=== PATIENT | female | born 1965 | race Two or more races ===

== ENCOUNTER → 2020-08-08 09:21 | Outpatient (BNVA) | payer OTHER, SELFPAY | PROVIDERS: Visit Provider Internal Medicine Gastroenterology ==

== ENCOUNTER 2020-10-14 13:49 | Outpatient (REF) | payer OTHER, SELFPAY ==
--- NOTE | ~2020-10-14 | MM_ITS ---
EXAMINATION: MM SCREENING DIGITAL BREAST TOMOSYNTHESIS, BILATERAL CLINICAL INFORMATION: Screening. Asymptomatic. The lifetime risk of breast cancer based on the Tyrer-Cuzick Model is 5%. COMPARISON: Mammography: 08/05/2019, 07/30/2018, 01/07/2016 TECHNIQUE: Digital breast tomosynthesis is performed in both the craniocaudal and mediolateral oblique views along with computer-aided detection (CAD). Synthesized 2D images are generated from the tomosynthesis. FINDINGS: There are scattered areas of fibroglandular density (ACR BI-RADS breast composition Category b). There are no significant masses, abnormal calcifications, or other abnormalities. There is stable circumscribed nodule again seen retroareolar 12:00 left breast. The axilla and skin contours are unremarkable. MM/MM tomosynthesis screening BI IMPRESSION: No significant changes from prior exams. Stable circumscribed nodule 12:00 anterior left breast. ASSESSMENT: BI-RADS 2: Benign RECOMMENDATION: Routine annual mammography screening. This patient's information was entered into a reminder system with a target due date for their next mammogram.
== END 2020-10-14 13:50 | disposition home or self-care (01) ==
LOC: HO.MAMMO 13:49
PROVIDERS: Visit Provider Internal Medicine
DX: Z12.31 Encounter for screening mammogram for malignant neoplasm of breast (principal)
CPT/HCPCS: 77063; 77067

== ENCOUNTER → 2020-12-29 15:58 | Outpatient (BNVA) | payer OTHER, SELFPAY | PROVIDERS: PCP Internal Medicine; Visit Provider Student in an Organized Health Care Education/Training Program ==

== ENCOUNTER 2021-01-30 07:43 | Outpatient (REF) | payer OTHER, SELFPAY ==
[2021-01-30 08:34] LABS: Hemoglobin 10.5 g/dl (12.0-16.0); Mean Corpuscular HGB Conc 31.8 g/dl (31.0-35.0); Mean Corpuscular Hemoglobin 30.1 pg (27.0-33.0); Mean Corpuscular Volume 94.6 fL (80-98); Platelet Count 281 X10*3/uL (160-400); Red Blood Count 3.49 X10*6/uL (4.20-5.50); Red Cell Distribution Width 12.5 % (11.0-16.0); White Blood Count 7.4 X10*3/uL (4.8-10.8)
[2021-01-30 08:45] LABS: Estimated Average Glucose 134 mg/dL; Hemoglobin A1c % 6.3 %
[2021-01-30 09:00] LABS: Creatinine Urine 85.29 mg/dL; Microalbumin Urine < 5.0 mg/L
[2021-01-30 09:08] LABS: Alanine Aminotransferase 12 U/L (0-31); Albumin Level 4.1 g/dL (3.5-5.0); Alkaline Phosphatase 84 U/L (39-117); Anion Gap 11 (12-20); Aspartate Amino Transferase 16 U/L (5-31); Bilirubin Total 0.5 mg/dL (0.0-1.0); Blood Urea Nitrogen 12 mg/dL (9-16); Calcium 9.6 mg/dL (8.4-10.2); Carbon Dioxide 28 mmol/L (22-29); Chloride 103 mmol/L (96-108); Cholesterol 139 mg/dL; Estimated Glomerular Filt Rate > 60; Glucose Fasting 106 mg/dL (60-99); HDL Cholesterol 59 mg/dL; LDL Cholesterol Calculated 66 mg/dl; Potassium 4.1 mmol/L (3.3-5.1); Sodium 138 mmol/L (135-145); Total Protein 7.1 g/dL (6.5-8.0); Triglycerides 74 mg/dL
[2021-01-30 09:21] LABS: TSH reflex Free T4 0.77 uIU/mL (0.32-4.0)
== END 2021-01-30 07:44 | disposition home or self-care (01) ==
LOC: HO.LAB 07:43
PROVIDERS: PCP Internal Medicine; Visit Provider Physician Assistant
DX: I10 Essential (primary) hypertension (principal); E11.9 Type 2 diabetes mellitus without complications
CPT/HCPCS: 36415; 80053; 80061; 82043; 83036; 84443; 85027

== ENCOUNTER → 2021-02-21 14:19 | Outpatient (BNVA) | payer OTHER, SELFPAY | PROVIDERS: PCP Internal Medicine; Referring Provider Internal Medicine; Visit Provider Nurse Practitioner Family ==

== ENCOUNTER → 2021-03-27 14:08 | Outpatient (BNVA) | payer OTHER, SELFPAY | PROVIDERS: PCP Internal Medicine; Referring Provider Internal Medicine; Visit Provider Nurse Practitioner Family ==

== ENCOUNTER → 2021-06-26 15:46 | Outpatient (BNVA) | payer OTHER, SELFPAY | PROVIDERS: PCP Internal Medicine; Referring Provider Internal Medicine; Visit Provider Nurse Practitioner Family ==

== ENCOUNTER → 2021-06-29 08:08 | Outpatient (BNVA) | payer OTHER, SELFPAY | PROVIDERS: PCP Internal Medicine; Visit Provider Nurse Practitioner Family ==

== ENCOUNTER 2021-08-24 17:04 | Outpatient (REF) | payer OTHER, SELFPAY ==
--- NOTE | ~2021-08-24 | XR_ITS ---
EXAMINATION: XR ABDOMEN KUB CLINICAL INDICATION: Abdominal pain COMPARISON: Previous upper GI November 2016 TECHNIQUE: AP view of the abdomen. FINDINGS: There is a gastric lap band. This appears unchanged from November 2016 upper GI. Phi angle measures approximately 74 degrees which is increased. No dilated loops of bowel or free air is seen. No calcifications are seen. There are mild degenerative changes at both hip joints. XR/XR KUB IMPRESSION: Gastric lap band. Phi angle appears increased measuring 74 degrees. This is similar to upper GI November 2016.
[2021-08-24 18:05] LABS: Anion Gap 12 (12-20); Blood Urea Nitrogen 10 mg/dL (9-16); Calcium 10.4 mg/dL (8.4-10.2); Carbon Dioxide 31 mmol/L (22-29); Chloride 101 mmol/L (96-108); Estimated Glomerular Filt Rate > 60; Glucose Random 97 mg/dL (60-115); Potassium 4.6 mmol/L (3.3-5.1); Sodium 139 mmol/L (135-145)
== END 2021-08-24 17:05 | disposition home or self-care (01) ==
LOC: HO.XRAY 17:04
PROVIDERS: PCP Internal Medicine; Visit Provider Nurse Practitioner Family
DX: R10.9 Unspecified abdominal pain (principal)
CPT/HCPCS: 36415; 74018; 80048; 87086

== ENCOUNTER 2021-11-14 14:04 | Outpatient (REF) | payer OTHER, SELFPAY ==
--- NOTE | ~2021-11-14 | XR_ITS ---
EXAMINATION: XR LUMBOSACRAL SPINE CLINICAL INFORMATION: Left-sided sciatica. COMPARISON: None TECHNIQUE: Three views of the lumbosacral spine. FINDINGS: There is mild straightening of the lumbar lordosis. The vertebral heights, alignment and disc heights are normal. There is no visible acute fracture, dislocation or subluxation. No aggressive lytic or sclerotic process seen. The SI joints are symmetric and normal. There is a left upper quadrant gastric band noted. XR/XR lumbar spine 2-3V IMPRESSION: Mild straightening of the lumbar lordosis. No visible acute fracture, dislocation or subluxation.
== END 2021-11-14 14:05 | disposition home or self-care (01) ==
LOC: HO.XRAY 14:04
PROVIDERS: PCP Internal Medicine; Visit Provider Internal Medicine
DX: M54.32 Sciatica, left side (principal); M54.31 Sciatica, right side
CPT/HCPCS: 72100

== ENCOUNTER 2021-11-18 09:29 | Outpatient (REF) | payer OTHER, SELFPAY ==
[2021-11-18 09:42] LABS: MANUAL DIFF FLAG NO
[2021-11-18 10:05] LABS: Basophils Percent Auto 0.6 % (0-2); Eosinophils Absolute Auto 0.1 X10*3/uL (0.0-0.4); Eosinophils Percent Auto 1.9 % (0-4); Hematocrit 33.6 % (37.0-47.0); Hemoglobin 10.9 g/dl (12.0-16.0); Imm Gran Abs Auto 0.02 X10*3/uL (0.00-0.03); Imm Gran Pct Auto 0.3 % (0.0-0.4); Lymphocytes Absolute Auto 2.2 X10*3/uL (1.2-4.9); Lymphocytes Percent Auto 31.8 % (20-40); Mean Corpuscular HGB Conc 32.4 g/dl (31.0-35.0); Mean Corpuscular Hemoglobin 29.9 pg (27.0-33.0); Mean Corpuscular Volume 92.3 fL (80.0-98.0); Mean Platelet Volume 9.9 fL (9.4-12.3); Monocytes Absolute Auto 0.6 X10*3/uL (0.1-1.2); Monocytes Percent Auto 8.1 % (2-11); Neutrophils Percent Auto 57.3 % (45-73); Platelet Count 310 X10*3/uL (160-400); Red Blood Count 3.64 X10*6/uL (4.20-5.50); Red Cell Distribution Width 12.7 % (11.0-16.0); White Blood Count 6.9 X10*3/uL (4.8-10.8)
[2021-11-18 10:23] LABS: Creatinine Urine 181.27 mg/dL; Microalbum/Creatinine Ratio Ur 26.4 ug/mg cr
[2021-11-18 10:25] LABS: Alanine Aminotransferase 19 U/L (0-31); Albumin Level 4.3 g/dL (3.5-5.0); Alkaline Phosphatase 94 U/L (39-117); Anion Gap 13 (12-20); Aspartate Amino Transferase 20 U/L (5-31); Bilirubin Total 0.4 mg/dL (0.0-1.0); Blood Urea Nitrogen 21 mg/dL (9-16); Calcium 10.1 mg/dL (8.4-10.2); Carbon Dioxide 25 mmol/L (22-29); Chloride 106 mmol/L (96-108); Cholesterol 160 mg/dL; Estimated Glomerular Filt Rate 51; Glucose Fasting 144 mg/dL (60-99); HDL Cholesterol 59 mg/dL; Iron 54 mcg/dL (30-160); LDL Cholesterol Calculated 84 mg/dl; Percent Iron Saturation 14 % (15-50); Potassium 4.9 mmol/L (3.3-5.1); Sodium 139 mmol/L (135-145); Total Iron Binding Capacity 378 mcg/dL (228-428); Total Protein 7.7 g/dL (6.5-8.0); Triglycerides 86 mg/dL; Unsaturated Iron Binding 324 ug/dL
== END 2021-11-18 09:30 | disposition home or self-care (01) ==
LOC: HO.LAB 09:29
PROVIDERS: PCP Internal Medicine; Visit Provider Internal Medicine
DX: Z00.00 Encounter for general adult medical examination without abnormal findings (principal); E11.9 Type 2 diabetes mellitus without complications; E55.9 Vitamin D deficiency, unspecified; D64.9 Anemia, unspecified; E78.5 Hyperlipidemia, unspecified
CPT/HCPCS: 36415; 80053; 80061; 82043; 82306; 83540; 85025

== ENCOUNTER 2022-02-06 06:01 | Outpatient (REF) | payer OTHER, SELFPAY ==
--- NOTE | ~2022-02-06 | FL_ITS ---
EXAMINATION: XR FLUOROSCOPY WITH IMAGES CLINICAL INFORMATION: Sacrococcygeal disorders. COMPARISON: None. TECHNIQUE: Fluoroscopy performed by Dr. Delbert Head. Fluoroscopy time: 0.1 minute. Cumulative Dose: 8.22 mGy. DAP: 2.24 Gy-cm2. Images: 1. FINDINGS: Radiopaque needle overlies the right sacroiliac joint with contrast extending along the joint. FL/FL guidance in treatment room IMPRESSION: Fluoroscopic guidance for right sacroiliac joint injection. Please refer to procedural report for further information.
== END 2022-02-06 06:02 | disposition home or self-care (01) ==
LOC: HO.RADIR 06:01
PROVIDERS: Visit Provider Anesthesiology
DX: M53.3 Sacrococcygeal disorders, not elsewhere classified (principal)
CPT/HCPCS: 27096; J2795; J3300; Q9967

== ENCOUNTER 2022-02-21 18:56 | Outpatient (REF) | payer OTHER, SELFPAY ==
--- NOTE | ~2022-02-21 | MR_ITS ---
EXAMINATION: MR LUMBAR SPINE WITHOUT CONTRAST CLINICAL INFORMATION: Right leg pain and low back pain. COMPARISON: X-ray dated 11/14/2021. TECHNIQUE: MRI of the lumbar spine was obtained using routine sequences without contrast. FINDINGS: VERTEBRAL BODIES AND PARASPINAL STRUCTURES: The marrow signal is within normal limits. There are no compression fractures or subluxations. Mildly reduced intradiscal signal is evident at the L5-S1 level. The paraspinal soft tissues appear normal. Small right renal cysts noted for which no imaging follow-up is indicated. The visualized bony pelvis appears normal. CONUS MEDULLARIS AND CAUDA EQUINA: Normal, terminating at the level of L1. No lower cord signal abnormality is seen. The cauda equina nerve roots are normal. SPINAL LEVELS: L1-L2, L2-L3, and L3-L4: Well-hydrated normal appearance of the discs without central canal stenosis or foraminal narrowing. [id number] left-sided facet arthropathy at the L3-L4 level. L4-L5: Mild disc bulge and facet arthropathy without central canal stenosis. Bulging disc results in mild left foraminal narrowing. Broad-based right posterolateral disc protrusion with moderate right foraminal encroachment mildly impresses upon the exiting right L4 nerve root. L5-S1: Disc degeneration and right subarticular zone disc protrusion impinges upon the right S1 nerve root. Mild facet arthropathy without central canal stenosis. Mild foraminal narrowing. MR/MR lumbar spine wo con IMPRESSION: Broad-based right posterolateral disc protrusion at the L4-L5 level with moderate right foraminal encroachment and mild mass effect upon the right L4 nerve root. Right subarticular zone disc protrusion at the L5-S1 level impinging upon the right S1 nerve root.
== END 2022-02-21 18:57 | disposition home or self-care (01) ==
LOC: HO.MRI 18:56
PROVIDERS: Visit Provider Anesthesiology
DX: M47.27 Other spondylosis with radiculopathy, lumbosacral region (principal)
CPT/HCPCS: 72148

== ENCOUNTER 2022-04-10 06:02 | Outpatient (REF) | payer OTHER, SELFPAY ==
--- NOTE | ~2022-04-10 | FL_ITS ---
EXAMINATION: Intraoperative fluoroscopy CLINICAL INFORMATION: Radiculopathy, lumbar region COMPARISON: Lumbar spine MRI February 21, 2022 TECHNIQUE: Intraoperative fluoroscopy was provided for use by Dr. Head. A total of 3 images were saved to PACS. A radiologist was not present during imaging. Today's dictation is only for administrative purposes to document intraoperative fluoroscopic usage. TOTAL FLUOROSCOPIC TIME: 0.5 minutes FL/FL guidance in treatment room FINDINGS~\^^ Intraoperative fluoroscopy provided for use by Dr. Head. Please see operative note for detailed findings.
== END 2022-04-10 06:03 | disposition home or self-care (01) ==
LOC: CF 06:02
PROVIDERS: Visit Provider Anesthesiology
DX: M54.16 Radiculopathy, lumbar region (principal); M53.3 Sacrococcygeal disorders, not elsewhere classified; M16.11 Unilateral primary osteoarthritis, right hip; M51.36 Other intervertebral disc degeneration, lumbar region
CPT/HCPCS: 64483; 64484; J3300

== ENCOUNTER 2022-04-20 10:49 | Outpatient (REF) | payer OTHER, SELFPAY ==
[2022-04-20 12:16] LABS: Creatinine Urine 135.56 mg/dL; Microalbum/Creatinine Ratio Ur 7.3 ug/mg cr
[2022-04-20 12:31] LABS: Alanine Aminotransferase 21 U/L (0-31); Albumin Level 4.2 g/dL (3.5-5.0); Alkaline Phosphatase 77 U/L (39-117); Anion Gap 14 (12-20); Aspartate Amino Transferase 27 U/L (5-31); Bilirubin Total 0.3 mg/dL (0.0-1.0); Blood Urea Nitrogen 21 mg/dL (9-16); Calcium 9.6 mg/dL (8.4-10.2); Carbon Dioxide 25 mmol/L (22-29); Chloride 103 mmol/L (96-108); Cholesterol 147 mg/dL; Estimated Glomerular Filt Rate > 60; Glucose Fasting 120 mg/dL (60-99); HDL Cholesterol 58 mg/dL; LDL Cholesterol Calculated 79 mg/dl; Potassium 4.4 mmol/L (3.3-5.1); Sodium 138 mmol/L (135-145); Total Protein 7.3 g/dL (6.5-8.0); Triglycerides 53 mg/dL
[2022-04-20 12:37] LABS: Vitamin D 25-OH Total 58.2 ng/mL (>30)
== END 2022-04-20 10:50 | disposition home or self-care (01) ==
LOC: HO.LAB 10:49
PROVIDERS: PCP Internal Medicine; Visit Provider Internal Medicine
DX: E55.9 Vitamin D deficiency, unspecified (principal); E11.9 Type 2 diabetes mellitus without complications; E78.5 Hyperlipidemia, unspecified
CPT/HCPCS: 36415; 80053; 80061; 82043; 82306

== ENCOUNTER 2022-05-10 16:00 | Outpatient (RCR) | payer OTHER, SELFPAY ==
--- NOTE | 2022-04-03 18:05 | MHC.PT.EP ---
[facility] [place] Office [place] Office [place] Office [address] Caden Andrews [address] [phone] F: [phone] F: [phone] F: [phone] F: [phone] Physical Therapy Plan of Care Date of Evaluation: Date of Surgery: Diagnosis: Low back pain, R sided sciatica Assessment: Patient is pleasant 56 y.o female who presents to PT with dx of LBP with R sided scaitica. She had recent imaging, MRI to lumbar spine which reveals Broad-based right posterolateral disc protrusion at the L4-L5 level with moderate right foraminal encroachment and mild mass effect upon the right L4 nerve root. Right subarticular zone disc protrusion at the L5-S1 level impinging upon the right S1 nerve root. She presents with pain, radiating R LE symptoms, limited AROM of lumbar spine, weakness in hips and core which is impairing her functional mobility at work and for lower body dressing. She would benefit from skilled PT to see if it can alleviate and centralize R LE symptoms, including the use of mechanical traction as an intervention. She is receiving lumbar injections next week for symptoms. If symptoms persist upon completion of PT she would benefit from marketing proposal specialist consult. Frequency and Duration: The patient will be seen 2x/week for 4 weeks Short Term Goals: 2 weeeks Patient is able to centralize R LE pain to low back with postural changes. Patient is independent with HEP to self manage symptoms and reduce pain level 2/10. Intermediate Goals: 4 weeks Patient presents with increased R hip flexion 5/5 to be able to bend/squat at work with proper form. Patient presents with increased low back sidebending 20 degrees to restore mobility to lumbar spine to put on shoes/socks. Treatment Plan: Modalities to reduce pain, spasms and effusion. Manual therapy to restore motion and function. Therapeutic exercise to improve strength and flexibility. Neuromuscular re-education for posture and balance. Therapeutic activities to return to functional activities of daily living. Electronically signed by: Courtney Alvarado, PT, DPT Please sign and return to therapist. Thank you for your referral.
--- NOTE | 2022-06-19 11:50 | MHC.PT.DC ---
[facility] [place] Office [place] Office [address] Caden Andrews [address] [phone] F: [phone] F: [phone] F: [phone] F: [phone] Physical Therapy Discharge Report Diagnosis: Low back pain, R sided sciatica Date of Surgery: NA Date of Evaluation: 04/03/22 Date of Discharge: 06/19/22 Treatments to Date: 8 Cancellations to Date: 1 No Shows to Date: 1 Discharge Status: Improved Function Independent with HEP Discharge Summary: Patient was last treated 05/10/22 with the last assessment being, Pt levels decreased after Tx last visit and radicular symptoms reduces and no change in px w/stagger stance core stab today. She did very well with traction, but ceased attending on her own accord, no formal discharge was performed. Therefore she is discharged for non compliance. Electronically signed by: Courtney Alvarado, PT, DPT Please sign and return to therapist. Thank you for your referral.
== END 2022-06-19 11:51 | disposition home or self-care (01) ==
LOC: HO.PT 16:00
PROVIDERS: PCP Internal Medicine; Visit Provider Internal Medicine
DX: M54.31 Sciatica, right side (principal)
CPT/HCPCS: 97012; 97110; 97161; 97530

== ENCOUNTER 2022-08-07 13:33 | Outpatient (REF) | payer OTHER, SELFPAY | END 2022-08-07 13:34 | disposition home or self-care (01) | LOC: HO.LAB 13:33 | PROVIDERS: PCP Internal Medicine; Visit Provider Advanced Practice Midwife | DX: Z13.89 Encounter for screening for other disorder (principal) ==

== ENCOUNTER 2022-08-07 14:15 | Outpatient (REF) | payer OTHER, SELFPAY ==
[2022-08-08 11:32] LABS: BV Int Neg Control Negative (Negative); BV Int Pos Control Positive (Positive)
[2022-08-10 02:24] LABS: HPV mRNA E6/E7 rflx Not Detected (Not Detected)
== END 2022-08-07 14:16 | disposition home or self-care (01) ==
LOC: HO.LNP 14:15
PROVIDERS: Visit Provider Advanced Practice Midwife
DX: Z01.419 Encounter for gynecological examination (general) (routine) without abnormal findings (principal); Z11.51 Encounter for screening for human papillomavirus (HPV); N89.8 Other specified noninflammatory disorders of vagina
CPT/HCPCS: 87480; 87510; 87624; 87660; 88142

== ENCOUNTER 2022-08-08 14:37 | Outpatient (REF) | payer OTHER, SELFPAY ==
[2022-08-08 17:27] LABS: TSH reflex Free T4 0.64 uIU/mL (0.32-4.0)
[2022-08-08 17:41] LABS: Folate 11.5 ng/mL (> or = 4.0); Vitamin B12 497 pg/mL (200-900)
== END 2022-08-08 14:38 | disposition home or self-care (01) ==
LOC: HO.LAB 14:37
PROVIDERS: PCP Internal Medicine; Referring Provider Internal Medicine; Visit Provider Nurse Practitioner Family
DX: R13.10 Dysphagia, unspecified (principal); K21.9 Gastro-esophageal reflux disease without esophagitis; K59.04 Chronic idiopathic constipation; R19.7 Diarrhea, unspecified; Z91.09 Other allergy status, other than to drugs and biological substances
CPT/HCPCS: 36415; 82607; 82746; 84443; 86003

== ENCOUNTER 2022-08-20 14:45 | Outpatient (REF) | payer OTHER, SELFPAY ==
--- NOTE | ~2022-08-20 | MM_ITS ---
EXAMINATION: MM SCREENING DIGITAL BREAST TOMOSYNTHESIS, BILATERAL CLINICAL INFORMATION: Screening. Asymptomatic. The lifetime risk of breast cancer based on the Tyrer-Cuzick Model is 5%. COMPARISON: Mammography: October 14, 2020 and studies dating back to December 14, 2013 TECHNIQUE: Digital breast tomosynthesis is performed in both the craniocaudal and mediolateral oblique views along with computer-aided detection (CAD). Synthesized 2D images are generated from the tomosynthesis. FINDINGS: There are scattered areas of fibroglandular density (ACR BI-RADS breast composition Category b). There are no significant masses, abnormal calcifications, or other abnormalities. Stable circumscribed density anterior left breast again seen. MM/MM tomosynthesis screening BI IMPRESSION: No significant changes from prior exam. ASSESSMENT: BI-RADS 2: Benign RECOMMENDATION: Routine annual mammography screening. This patient's information was entered into a reminder system with a target due date for their next mammogram.
== END 2022-08-20 14:46 | disposition home or self-care (01) ==
LOC: HO.MAMMO 14:45
PROVIDERS: PCP Internal Medicine; Visit Provider Advanced Practice Midwife
DX: Z12.31 Encounter for screening mammogram for malignant neoplasm of breast (principal)
CPT/HCPCS: 77063; 77067

== ENCOUNTER 2022-10-04 09:23 | Outpatient (REF) | payer OTHER, SELFPAY ==
--- NOTE | ~2022-10-04 | FL_ITS ---
PROCEDURE: UPPER GI WITH BARIUM SWALLOW CLINICAL INDICATION: Gastroesophageal reflux disease. COMPARISON: None available. TECHNIQUE: Following oral administration of thick barium and effervescent granules in upright view and lying position upper GI air-contrast study was performed. FINDINGS: Following oral administration of thick barium and effervescent granules in upright view there is normal propagation of bolus from the oral cavity through the pharynx, esophagus into stomach without any laryngeal penetration or aspiration. No stricture or extrinsic compression seen. The mucosal pattern of esophagus is normal. On placing patient supine and lying, the course, caliber and peristalsis of the stomach, duodenum bulb and the sweep is normal. The mucosal pattern of stomach and the duodenum is normal. There is mild gastroesophageal reflux without hiatal hernia. Subsequently barium-coated turkey was administered in upright view with normal propagation of bolus through the esophagus. No obstruction seen. FL/FL upper GI w Ba Swallow IMPRESSION: Unremarkable barium swallow and upper GI air-contrast study.
== END 2022-10-04 09:24 | disposition home or self-care (01) ==
LOC: HO.XRAY 09:23
PROVIDERS: PCP Internal Medicine; Visit Provider Nurse Practitioner Family
DX: K21.9 Gastro-esophageal reflux disease without esophagitis (principal)
CPT/HCPCS: 74240

== ENCOUNTER → 2022-10-11 16:02 | Outpatient (BNVA) | payer OTHER, SELFPAY | PROVIDERS: PCP Internal Medicine; Visit Provider Nurse Practitioner Family | DX: Z13.89 Encounter for screening for other disorder (principal) ==

== ENCOUNTER → 2022-10-16 13:19 | Outpatient (BNVA) | payer OTHER, SELFPAY | PROVIDERS: PCP Internal Medicine; Visit Provider Nurse Practitioner Family | DX: Z13.89 Encounter for screening for other disorder (principal) ==

== ENCOUNTER 2022-12-03 09:00 | Outpatient (REF) | payer OTHER, SELFPAY ==
[2022-12-03 10:17] LABS: Creatinine Urine 144.21 mg/dL; Microalbum/Creatinine Ratio Ur 6.9 ug/mg cr
[2022-12-03 10:18] LABS: Amphetamine Screen Urine Not Detected (Not Detect); Barbiturates, Urine Not Detected (Not Detect); Benzodiazepines Screen Urine Not Detected (Not Detect); Cannabinoid Screen Urine Not Detected (Not Detect); Cocaine Screen Urine Not Detected (Not Detect); Fentanyl, urine Not Detected (Not Detect); Opiate Screen Urine Not Detected (Not Detect); Phencyclidine Screen Urine Not Detected (Not Detect)
[2022-12-03 10:33] LABS: Alanine Aminotransferase 19 U/L (0-31); Alkaline Phosphatase 85 U/L (39-117); Anion Gap 11 (12-20); Aspartate Amino Transferase 17 U/L (5-31); Bilirubin Total 0.4 mg/dL (0.0-1.0); Blood Urea Nitrogen 13 mg/dL (9-16); Calcium 9.5 mg/dL (8.4-10.2); Carbon Dioxide 27 mmol/L (22-29); Chloride 107 mmol/L (96-108); Cholesterol 151 mg/dL; Estimated Glomerular Filt Rate > 60; Glucose Fasting 121 mg/dL (60-99); HDL Cholesterol 66 mg/dL; LDL Cholesterol Calculated 66 mg/dl; Potassium 4.3 mmol/L (3.3-5.1); Sodium 141 mmol/L (135-145); Triglycerides 98 mg/dL
[2022-12-03 10:53] LABS: Vitamin D 25-OH Total 53.6 ng/mL (>30)
== END 2022-12-03 09:01 | disposition home or self-care (01) ==
LOC: HO.LAB 09:00
PROVIDERS: Absent Provider Nurse Practitioner Family; PCP Internal Medicine; Visit Provider Internal Medicine
DX: E55.9 Vitamin D deficiency, unspecified (principal); E11.9 Type 2 diabetes mellitus without complications; E78.5 Hyperlipidemia, unspecified; Z79.899 Other long term (current) drug therapy
CPT/HCPCS: 36415; 80053; 80061; 80307; 80373; 82043; 82306

== ENCOUNTER 2023-03-21 15:32 | Outpatient (AMB) | payer OTHER, SELFPAY ==
[2023-03-21 15:41] VITALS: BP 128/80; BMI 36.9
--- NOTE | 2023-03-21 15:41 | MHC.PC.OV ---
Vital Signs 03/21/23 15:41 Height 5 ft 2 in Weight 202 lb BMI 36.9 BP 128/80 Blood Pressure Location Lt brachial Position Sitting Intake Visit Reasons: dm Intake Note: Patient here for a follow up DM Development Officer Required: No Accompanied by: Self / Same As Patient Allergies naproxen [NAPROXEN] Allergy (Intermediate, Verified 03/21/23 16:13) CHEST TIGHTNESS, vomiting Butrans Allergy (Unknown, Uncoded 03/21/23 16:13) rash Medication List - Last Reconciled 03/21/23 by Chanell Ford MD acetaminophen ER (Mapap Arthritis Pain) 650 mg PO Q8H PRN albuterol sulfate 90 mcg/actuation 1 puff PO QID atorvastatin 10 mg PO BEDTIME 90 days baclofen 20 mg PO BID PRN budesonide-formoterol 160-4.5 mcg/actuation (Symbicort) 2 puffs PO BID citalopram 40 mg PO DAILY 90 days famotidine (Pepcid) 20 mg PO BEDTIME PRN gabapentin 300 mg PO BEDTIME lactobacillus combination no.4 (Probiotic) 3,000 mmu cells PO DAILY lidocaine 4% (Aspercreme (lidocaine)) 1 patch topical DAILY PRN linaclotide (Linzess) 290 mcg PO QAM lisinopril 10 mg PO DAILY 90 days menthol 2.5% (Icy Hot Pain Relieving) 1 appl topical BID-QID PRN metformin 1,000 mg PO BID 90 days methylcellulose (laxative) (Citrucel) 500 mg PO DAILY mirtazapine 15 mg PO BEDTIME 90 days montelukast 10 mg PO DAILY pantoprazole 40 mg PO DAILY tramadol 50 mg PO Q8H PRN tretinoin 0.1% 1 appl topical BEDTIME 30 days Tobacco use date assessed: 08/08/22 Dental Screening Dental Screen Date: 03/21/23 Did you have a dental visit in the last 12 months?: Yes Did you have a dental problem in the last 6 months where you did not have access to dental care?: No Was dental information given to patient?: Patient has dentist HPI HPI Comments History of Present Illness Details This is a 57-year-old female with diabetes mellitus type 2, hypertension, hyperlipidemia and GERD that comes today for follow-up on her conditions. A1c within goal. Blood pressure stable. Lipid panel will be order and her LDL goal should be less than 70. GERD stable with Pepcid and PPIs as needed. Low back pain was relieved by local injections. No chest pain or shortness of breath. [facility] Medical History Right sided sciatica Left sciatic nerve pain History of cocaine use Physical exam Tubular adenoma Asthma Diabetes 1.5, managed as type 2 Chronic idiopathic constipation GERD (gastroesophageal reflux disease) Surgical History Hx of section History of repair of hiatal hernia Hx of laparoscopic gastric banding Hx of esophagogastroduodenoscopy Hx of colonoscopy Family History Father Prostate CA Cancer of back Mother Diabetes 1.5, managed as type 2 CVD (cardiovascular disease) Social History Household Members: Other Household Members Other:: grandson Housing: House Alcohol intake: former Patient Tobacco Use Status: Current everyday Tobacco user Tobacco use type: Cigarette Cigarettes Per Day: 4 Years Smoked: 16 e-Cigarette/Vaping Use: Never Used Second Hand Smoke Exposure: No service: No Current occupational status: employed Current occupational exposures/hazards: No Sexual orientation: Straight/Heterosexual Gender identity: Female Cognitive needs: No Hearing needs: No Vision needs: Yes (reading glasses) Questionnaire Thrive Questionnaire Date Thrive assessed: 08/08/22 ERIKA-7 AMB Questionnaire ERIKA-7 Date ERIKA - 7 assessed: 08/08/22 Source: Developed by Drs. Calvin Maria, Meghan Eddy, Josh Blandon and colleagues, with an educational andi from [employer]. Review of Systems Const All systems reviewed & are unremarkable except as noted in HPI and below Eyes Reports no additional complaints, Denies change in vision and Denies other visual disturbances Card Denies chest pain at rest, Denies chest pain with activity, Denies edema, Denies irregular heart rhythm, Denies claudication, Denies dyspnea, Denies dyspnea on exertion, Denies orthopnea, Denies paroxysmal nocturnal dyspnea and Denies slow heart rate Resp Denies cough, Denies dyspnea and Denies dyspnea on exertion GI Denies abdominal pain, Denies change in bowel habits, Denies excessive flatus, Denies nausea and Denies vomiting Denies urinary incontinence, Denies urinary hesitancy and Denies urinary urgency Musc Denies abnormal gait, Denies atrophy, Denies deformity and Denies limited range of motion Skin/Breast Denies bleeding lesions, Denies changing lesions and Denies rash Neuro Denies abnormal gait and Denies lack of coordination Physical exam (Primary Care) Vital Signs: Last Vital Signs BP 128/80 03/21/23 15:41 BMI result Body Mass Index 36.9 Tobacco/Smoking Status: Tobacco use Status Tobacco use date assessed 08/08/22 03/21/23 15:44 Patient Tobacco Use Status Current everyday Tobacco 03/21/23 15:44 Tobacco use type Cigarette 03/21/23 15:44 e-Cigarette/Vaping Use Never Used 03/21/23 15:44 Thrive Assessment: Date of Thrive Assessment Date Thrive assessed 08/08/22 03/21/23 15:44 Eyes General: appearance normal, both eyes and all related structures Eyelids: Yes eyelids normal Conjunctivae: conjunctivae normal Neck Neck: Yes normal visual inspection and Yes supple Resp Effort & Inspection: normal respiratory effort Auscultation: clear to auscultation bilaterally Cardio Jugular venous distension: no JVD Rate: regular rate Rhythm: regular rhythm Heart sounds: S1 normal heart sound present and S2 normal heart sound present Extrem General: Yes full ROM Results AMB Hemoglobin A1c AMB Hemoglobin A1c 6.9 % Last Edit by JB Correa on 03/21/23 15:58 Results Reviewed Results Reviewed: Laboratory Last Values Hgb A1c (Clinic) 6.9 % (4.0-6.0) H 03/21/23 15:44 Assessment and Plan Assessment & Plan (1) DMII (diabetes mellitus, type 2): Code(s): E11.9 - Type 2 diabetes mellitus without complications Qualifiers: Diabetes mellitus penitentiary insulin use: 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 A1c goal is equal or less than 7 %. (2) HTN (hypertension): Code(s): I10 - Essential (primary) hypertension Qualifiers: Hypertension type: essential hypertension Qualified Code(s): I10 - Essential (primary) hypertension Plan: Continue lisinopril. BP goal is equal or less than 130/80. (3) Hyperlipidemia LDL goal <70: Code(s): E78.5 - Hyperlipidemia, unspecified Plan: Continue statin. LDL goal is less than 70. (4) GERD (gastroesophageal reflux disease): Code(s): K21.9 - Gastro-esophageal reflux disease without esophagitis Qualifiers: Esophagitis presence: esophagitis presence not specified Qualified Code(s): K21.9 - Gastro-esophageal reflux disease without esophagitis Plan: Continue Pepcid and PPIs. 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
== END 2023-03-21 16:20 | disposition home or self-care (01) ==
PROVIDERS: PCP Internal Medicine; Visit Provider Internal Medicine
DX: E11.9 Type 2 diabetes mellitus without complications (principal); I10 Essential (primary) hypertension; E78.5 Hyperlipidemia, unspecified; K21.9 Gastro-esophageal reflux disease without esophagitis
CPT/HCPCS: 83036; 99214

== ENCOUNTER 2023-03-27 16:06 | Outpatient (AMB) | payer OTHER, SELFPAY ==
[2023-03-27 16:07] VITALS: BP 122/66; PULSE 96; TEMP 36.3; O2SAT 98; BMI 37.4
--- NOTE | 2023-03-27 16:07 | A.OFFVIS_ITS ---
Intake Vital Signs 03/27/23 16:07 Height 5 ft 2 in Weight 204 lb 9.423 oz BMI 37.4 BP 122/66 Blood Pressure Location Rt brachial Position Sitting Pulse 96 Pulse Source Pulse Oximeter Temp 97.3 F Temp Source Skin Pulse Oximetry (%) 98 Intake Visit Reasons: low back pain Intake Note: Pt seen today for follow up. States her back pain is much better after injection with pain mgmt. 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 Required: No Accompanied by: Self / Same As Patient Allergies naproxen [NAPROXEN] Allergy (Intermediate, Verified 03/27/23 16:09) CHEST TIGHTNESS, vomiting Butrans Allergy (Unknown, Uncoded 03/27/23 16:09) rash Medication List - Last Reconciled 03/27/23 by Gabriele Hernández MD acetaminophen ER (Mapap Arthritis Pain) 650 mg PO Q8H PRN atorvastatin 10 mg PO BEDTIME 90 days baclofen 20 mg PO BID PRN budesonide-formoterol 160-4.5 mcg/actuation (Symbicort) 2 puffs PO BID citalopram 40 mg PO DAILY 90 days famotidine (Pepcid) 20 mg PO BEDTIME PRN gabapentin 300 mg PO BEDTIME lactobacillus combination no.4 (Probiotic) 3,000 mmu cells PO DAILY lidocaine 4% (Aspercreme (lidocaine)) 1 patch topical DAILY PRN linaclotide (Linzess) 290 mcg PO QAM lisinopril 10 mg PO DAILY 90 days menthol 2.5% (Icy Hot Pain Relieving) 1 appl topical BID-QID PRN metformin 1,000 mg PO BID 90 days methylcellulose (laxative) (Citrucel) 500 mg PO DAILY mirtazapine 15 mg PO BEDTIME 90 days montelukast 10 mg PO DAILY pantoprazole 40 mg PO DAILY tramadol 50 mg PO Q8H PRN tretinoin 0.1% 1 appl topical BEDTIME 30 days Ventolin HFA 90 mcg/actuation (albuterol sulfate) 2 puffs inhalation Q6H PRN 30 days NS HPI HPI Comments History of Present Illness Details This is a 57-year-old female with past medical history lumbar radiculopathy, sciatica who presents for follow-up. Last injection she had by Pain Management was in April of last year. She states that it has given her significant relief. States that the some of the pain is coming back but it not severe enough to interfere with her daily activities. She also has pain on the outside of her right hip. The pain is worse when she tries to sleep on her right side. She prefers the left side. She continues to take tramadol 3 times a day. [facility] Medical History Right sided sciatica Left sciatic nerve pain History of cocaine use Physical exam Tubular adenoma Asthma Diabetes 1.5, managed as type 2 Chronic idiopathic constipation GERD (gastroesophageal reflux disease) Surgical History Hx of section History of repair of hiatal hernia Hx of laparoscopic gastric banding Hx of esophagogastroduodenoscopy Hx of colonoscopy Family History Father Prostate CA Cancer of back Mother Diabetes 1.5, managed as type 2 CVD (cardiovascular disease) Social History Household Members: Other Household Members Other:: grandson Housing: House Alcohol intake: former Patient Tobacco Use Status: Current everyday Tobacco user Tobacco use type: Cigarette Cigarettes Per Day: 4 Years Smoked: 16 e-Cigarette/Vaping Use: Never Used Second Hand Smoke Exposure: No service: No Current occupational status: employed Current occupational exposures/hazards: No Sexual orientation: Straight/Heterosexual Gender identity: Female Cognitive needs: No Hearing needs: No Vision needs: Yes (reading glasses) Review of Systems Musc Reports back pain, Reports arthralgias and Reports radiating pain into limb Physical Exam Vital Signs: Last Vital Signs Temp 97.3 F 03/27/23 16:07 Pulse 96 03/27/23 16:07 BP 122/66 03/27/23 16:07 Pulse Ox 98 03/27/23 16:07 BMI result Body Mass Index 37.4 Const General: cooperative, healthy appearing, comfortable and no acute distress Nutritional Appearance: obese Orientation/consciousness: patient oriented x3 Limitations: no limitations HEENT Head: Yes normocephalic and Yes atraumatic Mouth: moist mucous membranes Resp Effort & Inspection: normal respiratory effort and able to speak in complete sen tences Neuro General: patient oriented x3 Extrem Other: Positive straight leg raise test on the right Right trochanteric bursa area tenderness with negative Obdulia's test Assessment & Plan Assessment & Plan (1) Radiculopathy, lumbar region: Code(s): M54.16 - Radiculopathy, lumbar region Plan: Continues to have low back pain on exam although pain is improved after injections with pain management. States that the pain is starting to come back but not as severe as it was. Advised patient to contact pain management as needed for her back pain. She also uses a lidocaine patch she continues to take tramadol 50 mg 3 times a day. Advised patient to try taking 2 tabs a day. Follow-up in 6 months (2) Encounter for medication monitoring: Comment: tramadol pain contract renewed 10/11/2022 Code(s): Z51.81 - Encounter for therapeutic drug level monitoring (3) Trochanteric bursitis, right hip: Code(s): M70.61 - Trochanteric bursitis, right hip Plan: I gave patient a printout of exercises to do for right trochanteric bursitis. Can consider injection next visit Plan I spent 17 minutes reviewing patient's chart, evaluating patient, ordering diagnostic workup, counseling patient and documenting in the chart Coding Level of Care Code Est Pt Level 3 (56537) Diagnoses Radiculopathy, lumbar region M54.16 Encounter for medication monitoring Z51.81 Trochanteric bursitis, right hip M70.61
== END 2023-03-27 16:28 | disposition home or self-care (01) ==
PROVIDERS: PCP Internal Medicine; Visit Provider Student in an Organized Health Care Education/Training Program
DX: M54.16 Radiculopathy, lumbar region (principal); Z51.81 Encounter for therapeutic drug level monitoring; M70.61 Trochanteric bursitis, right hip
CPT/HCPCS: 99213

== ENCOUNTER → 2023-03-27 16:06 | Outpatient (BNVA) | payer OTHER, SELFPAY | PROVIDERS: PCP Internal Medicine; Visit Provider Student in an Organized Health Care Education/Training Program ==

== ENCOUNTER 2023-04-23 16:01 | Outpatient (AMB) | payer OTHER, SELFPAY ==
[2023-04-23 16:18] VITALS: BP 118/65; PULSE 85; BMI 36.8
--- NOTE | 2023-04-23 16:18 | MHC.OFFVIS ---
Intake Vital Signs 04/23/23 16:18 Height 5 ft 2 in Weight 201 lb 0.985 oz BMI 36.8 BP 118/65 Blood Pressure Location Rt brachial Position Sitting Pulse 85 Intake Visit Reasons: 6 month follow up Intake Note: Anamika presents in office as a 6 months follow up of GERD. CC: Patient reports doing well and denies having any new GI concerns today. Billing Machine Operator Required: No Accompanied by: Self / Same As Patient Allergies naproxen [NAPROXEN] Allergy (Intermediate, Verified 04/23/23 16:20) CHEST TIGHTNESS, vomiting Butrans Allergy (Unknown, Uncoded 03/27/23 16:09) rash HPI 6 month follow up HPI Details LAST VISIT: Chronic idiopathic constipation Continue Linzess 290 mcg daily. Patient was also encouraged to increase activity and fluid intake to promote better bowel motility. GERD (gastroesophageal reflux disease) Continue pantoprazole in the morning and famotidine bedtime. Patient was also encouraged to avoid dietary triggers and late night snacking. Staying upright for minimum 3 hours after meals discussed with patient. I will see patient in 6 months, sooner on as needed basis. Patient is agreeable to this plan and verbalizes understanding of instructions. She was given the opportunity to ask questions and all questions answered. TODAY'S VISIT Patient is here today for follow-up. Patient reports that she has been doing fairly well. Patient states that she is taking Linzess daily and is moving her bowels without any issues. Patient no longer is taking Citrucel. Increased fiber in her diet. Patient denies any acid reflux. Takes pantoprazole in the morning and only takes famotidine on as needed basis. Patient states that she might take it once or twice a week if needed. Patient denies dyspepsia, dysphagia or odynophagia. Last colonoscopy in 2017, patient will be due for colorectal screening in November of 2023. Patient had upper endoscopy in 2019 that showed chronic esophagitis. Patient seems to be doing well with current treatment. Denies any postprandial abdominal pain, bloating, nausea or vomiting. Patient denies any melena, hematochezia, unintentional weight loss or ribbon like stools. [facility] Medical History Right sided sciatica Left sciatic nerve pain History of cocaine use Physical exam Tubular adenoma Asthma Diabetes 1.5, managed as type 2 Chronic idiopathic constipation GERD (gastroesophageal reflux disease) Surgical History Hx of section History of repair of hiatal hernia Hx of laparoscopic gastric banding Hx of esophagogastroduodenoscopy Hx of colonoscopy Family History Father Prostate CA Cancer of back Mother Diabetes 1.5, managed as type 2 CVD (cardiovascular disease) Social History Household Members: Other Household Members Other:: grandson Housing: House Alcohol intake: former Patient Tobacco Use Status: Current everyday Tobacco user Tobacco use type: Cigarette Cigarettes Per Day: 4 Years Smoked: 16 e-Cigarette/Vaping Use: Never Used Second Hand Smoke Exposure: No service: No Current occupational status: employed Current occupational exposures/hazards: No Sexual orientation: Straight/Heterosexual Gender identity: Female Cognitive needs: No Hearing needs: No Vision needs: Yes (reading glasses) Review of Systems Const Denies weight gain and Denies weight loss ENT Reports no additional complaints, Denies dysphagia and Denies odynophagia Card Reports no additional complaints Resp Reports no additional complaints GI Denies abdominal pain, Denies belching, Denies melena, Denies bloating, Denies change in bowel habits, Denies dysphagia, Denies excessive flatus, Denies dyspepsia, Denies heartburn, Denies diarrhea, Denies loose stools, Denies nausea, Denies odynophagia and Denies vomiting Musc Reports no additional complaints Neuro Reports no additional complaints Psych Reports no additional complaints Endo Reports no additional complaints Physical Exam Vital Signs: Last Vital Signs Pulse 85 04/23/23 16:18 BP 118/65 04/23/23 16:18 BMI result Body Mass Index 36.8 Const General: healthy appearing, no acute distress and well developed Nutritional Appearance: obese Orientation/consciousness: patient oriented x3 HEENT Head: Yes normal to inspection, Yes normocephalic and Yes atraumatic Face and sinus: Yes normal facial exam Mouth: Normal oral and palatal mucosa present Throat: Yes posterior oropharynx normal, Yes tonsils normal and Yes uvula midline Eyes General: appearance normal, both eyes and all related structures Neck Neck: Yes normal visual inspection, Yes full ROM and Yes trachea midline Thyroid: Thyroid normal Resp Effort & Inspection: normal respiratory effort, able to speak in complete sentences, no tracheal deviation and symmetric chest movement Auscultation: clear to auscultation bilaterally Cardio Rate: regular rate Heart sounds: S1 normal heart sound present and S2 normal heart sound present GI Inspection: Yes normal to inspection, No distended and Yes obesity Palpation (GI): Soft to palpation, not firm, nontender and No hepatosplenomegaly present Auscultation: normal bowel sounds General: Yes no CVA tenderness Back/Spine/Pelvis Back: no CVA tenderness Skin General skin exam: elasticity normal, turgor normal and dry skin Neuro General: patient oriented x3 Psych Appearance: grossly normal Mental Status: mental status grossly normal Speech and movement: Normal speech and movement present Assessment & Plan Assessment & Plan (1) Chronic idiopathic constipation: Code(s): K59.04 - Chronic idiopathic constipation (2) GERD (gastroesophageal reflux disease): Code(s): K21.9 - Gastro-esophageal reflux disease without esophagitis Qualifiers: Esophagitis presence: esophagitis presence not specified Qualified Code(s): K21.9 - Gastro-esophageal reflux disease without esophagitis Plan Continue pantoprazole every morning. The importance of avoiding dietary triggers discussed with patient. Patient was encouraged to stay upright for minimal 3 hours after meals. May use famotidine on as needed basis at bedtime. Patient can continue Linzess. Patient was encouraged to increase fiber, fluid intake and activity to promote better bowel motility. Weight loss also encouraged. Eating smaller meals and more often discussed with patient. Avoiding carbs, eating more protein. I will see patient in 6 months, we will discuss going for colonoscopy and upper endoscopy. Patient is agreeable to this plan and verbalizes understanding of instructions. She was given the opportunity to ask questions and all questions answered. Thank you for allowing me to participate in her care Medications: Refilled linaclotide (Linzess) 290 mcg PO QAM 90 caps 2RF K59.00 - Constipation, unspecified pantoprazole 40 mg PO DAILY 90 tabs 2RF K21.9 - Gastro-esophageal reflux disease without esophagitis Coding Level of Care Code Est Pt Level 3 (95737) Diagnoses Chronic idiopathic constipation K59.04 Gastroesophageal reflux disease, unspecified whether esophagitis present K21.9 Esophagitis presence: esophagitis presence not specified Time Spent (min) 25 Comment 15 minutes spent with patient and additional 10 minutes spent reviewing her records
== END 2023-04-23 16:29 | disposition home or self-care (01) ==
PROVIDERS: PCP Internal Medicine; Visit Provider Nurse Practitioner Family
DX: K59.04 Chronic idiopathic constipation (principal); K21.9 Gastro-esophageal reflux disease without esophagitis
CPT/HCPCS: 99213

== ENCOUNTER → 2023-04-23 16:01 | Outpatient (BNVA) | payer OTHER, SELFPAY | PROVIDERS: PCP Internal Medicine; Visit Provider Nurse Practitioner Family ==

== ENCOUNTER 2023-09-18 15:36 | Outpatient (AMB) | payer OTHER, SELFPAY ==
--- NOTE | 2023-09-18 15:48 | A.OFFVIS_ITS ---
Intake Vital Signs 09/18/23 15:49 Height 5 ft 2 in Weight 206 lb 12.697 oz BMI 37.8 BP 120/64 Blood Pressure Location Rt brachial Position Sitting Pulse 93 Pulse Source Pulse Oximeter Pulse Oximetry (%) 97 Oxygen Delivery Method Room Air Intake Visit Reasons: LBP Intake Note: Patient last seen 03/27/23 presents today for follow up. C/o pain in the middle of her back, especially when laying down at night. Cigar Packing Examiner Required: No Accompanied by: Self / Same As Patient Allergies naproxen [NAPROXEN] Allergy (Intermediate, Verified 09/18/23 15:54) CHEST TIGHTNESS, vomiting Butrans Allergy (Unknown, Uncoded 09/18/23 15:54) rash Medication List - Last Reconciled 09/18/23 by Gabriele Hernández MD acetaminophen ER 650 mg PO Q8H PRN atorvastatin 10 mg PO BEDTIME 90 days baclofen 20 mg PO BID PRN NS budesonide-formoterol 160-4.5 mcg/actuation (Symbicort) 2 puffs PO BID citalopram 40 mg PO DAILY 90 days famotidine (Pepcid) 20 mg PO BEDTIME PRN gabapentin 300 mg PO BEDTIME lactobacillus combination no.4 (Probiotic) 3,000 mmu cells PO DAILY lidocaine 4% (Aspercreme (lidocaine)) 1 patch topical DAILY PRN linaclotide (Linzess) 290 mcg PO QAM lisinopril 10 mg PO DAILY 90 days menthol 2.5% (Icy Hot Pain Relieving) 1 appl topical BID-QID PRN metformin 1,000 mg PO BID 90 days methylcellulose (laxative) (Citrucel) 500 mg PO DAILY mirtazapine 15 mg PO BEDTIME 90 days montelukast 10 mg PO DAILY pantoprazole 40 mg PO DAILY tramadol 50 mg PO Q8H PRN tretinoin 0.1% 1 appl topical BEDTIME 30 days Ventolin HFA 90 mcg/actuation (albuterol sulfate) 2 puffs inhalation Q6H PRN 30 days NS HPI HPI Comments History of Present Illness0 Details This is a 57-year-old female with past medical history lumbar radiculopathy, sciatica who presents for follow-up. She states that over the last month she has been having central midback pain that is more severe at night, worse when she is turning in bed. She continues to have her lower back pain with sciatica, but this other pain is new. She has been applying lidocaine patches, taking Tylenol and tramadol. [facility] Medical History Right sided sciatica Left sciatic nerve pain History of cocaine use Physical exam Tubular adenoma Asthma Diabetes 1.5, managed as type 2 Chronic idiopathic constipation GERD (gastroesophageal reflux disease) Surgical History Hx of section History of repair of hiatal hernia Hx of laparoscopic gastric banding Hx of esophagogastroduodenoscopy Hx of colonoscopy Family History Father Prostate CA Cancer of back Mother Diabetes 1.5, managed as type 2 CVD (cardiovascular disease) Social History Household Members: Other Household Members Other:: grandson Housing: House Alcohol intake: former Patient Tobacco Use Status: Current everyday Tobacco user Tobacco use type: Cigarette Cigarettes Per Day: 4 Years Smoked: 16 e-Cigarette/Vaping Use: Never Used Second Hand Smoke Exposure: No service: No Current occupational status: employed Current occupational exposures/hazards: No Sexual orientation: Straight/Heterosexual Gender identity: Female Cognitive needs: No Hearing needs: No Vision needs: Yes (reading glasses) Review of Systems [facility] Reports back pain Physical Exam Vital Signs: Last Vital Signs Pulse 93 09/18/23 15:49 BP 120/64 09/18/23 15:49 Pulse Ox 97 09/18/23 15:49 Oxygen Delivery Method Room Air 09/18/23 15:49 BMI result Body Mass Index 37.8 Const General: cooperative, healthy appearing, comfortable and no acute distress Nutritional Appearance: obese Orientation/consciousness: patient oriented x3 Limitations: no limitations HEENT Head: Yes normocephalic and Yes atraumatic Resp Effort & Inspection: normal respiratory effort and able to speak in complete sentences Neuro General: patient oriented x3 Extrem Other: Positive straight leg raise test on the right Lower thoracic/upper lumbar vertebral tenderness to palpation. Assessment & Plan Assessment & Plan (1) Low back pain, unspecified: Code(s): M54.50 - Low back pain, unspecified Qualifiers: Chronicity: unspecified Back pain laterality: midline Sciatica presence: without sciatica Qualified Code(s): M54.50 - Low back pain, unspecified Plan: Patient presents with one-month history of lower thoracic/upper lumbar back pain come on exam she has point tenderness in that area. This pain is different from her lower back and right sciatica pain. Will check an x-ray to rule out any anatomical changes such as mass or fracture. (2) Encounter for medication monitoring: Comment: tramadol pain contract renewed 10/11/2022 Code(s): Z51.81 - Encounter for therapeutic drug level monitoring (3) Lumbosacral radiculopathy due to degenerative joint disease of spine: Code(s): M47.27 - Other spondylosis with radiculopathy, lumbosacral region Plan: Managing pain with Tylenol and tramadol 50 mg t.i.d.. Patient has been stable on this dose with no side effects. Continue with tramadol 50 mg t.i.d. Follow-up in 6 months Plan I spent 17 minutes reviewing patient's chart, evaluating patient, ordering diagnostic workup, counseling patient and documenting in the chart Orders: Orders XR thoracic spine 3V Today M54.50 - Low back pain, unspecified XR lumbar spine 4V min Today M54.50 - Low back pain, unspecified Coding Level of Care Code Est Pt Level 3 (97926) Diagnoses Midline low back pain without sciatica, unspecified chronicity M54.50 Chronicity: unspecified Back pain laterality: midline Sciatica presence: without sciatica Encounter for medication monitoring Z51.81 Lumbosacral radiculopathy due to degenerative joint disease of spine M47.27
[2023-09-18 15:49] VITALS: BP 120/64; PULSE 93; O2SAT 97; BMI 37.8
== END 2023-09-18 16:31 | disposition home or self-care (01) ==
PROVIDERS: PCP Internal Medicine; Visit Provider Student in an Organized Health Care Education/Training Program
DX: M54.50 Low back pain, unspecified (principal); Z51.81 Encounter for therapeutic drug level monitoring; M47.27 Other spondylosis with radiculopathy, lumbosacral region
CPT/HCPCS: 99213

== ENCOUNTER → 2023-09-18 15:36 | Outpatient (BNVA) | payer OTHER, SELFPAY | PROVIDERS: PCP Internal Medicine; Visit Provider Student in an Organized Health Care Education/Training Program ==

== ENCOUNTER 2023-09-23 16:19 | Outpatient (REF) | payer OTHER, SELFPAY ==
--- NOTE | ~2023-09-23 | XR_ITS ---
EXAMINATION: XR THORACIC SPINE XR LUMBAR SPINE CLINICAL INFORMATION: Low back pain unspecified. COMPARISON: MR lumbar spine of 02/23/2022. Radiographs of lumbar spine of 11/14/2021. Chest radiographs of 2017. TECHNIQUE: 4 views of the thoracic spine. 5 views of the lumbar spine. FINDINGS: LUMBAR SPINE: Tubing and port overlie upper abdomen. Degenerative changes in the bilateral sacroiliac joints, moderate. Facet arthritis in the lower lumbar spine. Moderate multilevel lumbar spondylosis with moderate loss of disc space height at L5-S1. THORACIC SPINE: Mild multilevel degenerative changes in the thoracic spine. Tubing partially imaged overlying the upper abdomen. Degenerative changes on very limited images of the cervical spine. XR/XR thoracic spine 3V IMPRESSION: 1. Moderate multilevel lumbar spondylosis with moderate loss of disc space height at L5-S1. 2. Mild multilevel degenerative changes in the thoracic spine.
--- NOTE | ~2023-09-23 | XR_ITS ---
EXAMINATION: XR THORACIC SPINE XR LUMBAR SPINE CLINICAL INFORMATION: Low back pain unspecified. COMPARISON: MR lumbar spine of 02/23/2022. Radiographs of lumbar spine of 11/14/2021. Chest radiographs of 2017. TECHNIQUE: 4 views of the thoracic spine. 5 views of the lumbar spine. FINDINGS: LUMBAR SPINE: Tubing and port overlie upper abdomen. Degenerative changes in the bilateral sacroiliac joints, moderate. Facet arthritis in the lower lumbar spine. Moderate multilevel lumbar spondylosis with moderate loss of disc space height at L5-S1. THORACIC SPINE: Mild multilevel degenerative changes in the thoracic spine. Tubing partially imaged overlying the upper abdomen. Degenerative changes on very limited images of the cervical spine. XR/XR lumbar spine 4V min IMPRESSION: 1. Moderate multilevel lumbar spondylosis with moderate loss of disc space height at L5-S1. 2. Mild multilevel degenerative changes in the thoracic spine.
== END 2023-09-23 16:20 | disposition home or self-care (01) ==
LOC: HO.XRAY 16:19
PROVIDERS: PCP Internal Medicine; Visit Provider Student in an Organized Health Care Education/Training Program
DX: M54.50 Low back pain, unspecified (principal)
CPT/HCPCS: 72072; 72110

== ENCOUNTER 2023-10-25 15:42 | Outpatient (AMB) | payer OTHER, SELFPAY ==
[2023-10-25 15:59] VITALS: BP 121/65; PULSE 97; BMI 37.4
--- NOTE | 2023-10-25 15:59 | MHC.OFFVIS ---
Vital Signs 10/25/23 15:59 Height 5 ft 2 in Weight 204 lb 9.423 oz BMI 37.4 BP 121/65 Blood Pressure Location Lt brachial Position Sitting Pulse 97 Intake Visit Reasons: 6 month follow up discuss colonoscopy Intake Note: Patient in office today in follow up to discuss colonoscopy. CC: She reports doing well and denies having any GI symptoms or concerns today. Alternative Financing Specialist Required: No Accompanied by: Self / Same As Patient Allergies naproxen [NAPROXEN] Allergy (Intermediate, Verified 10/25/23 15:59) CHEST TIGHTNESS, vomiting Butrans Allergy (Unknown, Uncoded 09/18/23 15:54) rash HPI HPI 6 month follow up discuss colonoscopy: Details: LAST VISIT Chronic idiopathic constipation GERD (gastroesophageal reflux disease) Plan Continue pantoprazole every morning. The importance of avoiding dietary triggers discussed with patient. Patient was encouraged to stay upright for minimal 3 hours after meals. May use famotidine on as needed basis at bedtime. Patient can continue Linzess. Patient was encouraged to increase fiber, fluid intake and activity to promote better bowel motility. Weight loss also encouraged. Eating smaller meals and more often discussed with patient. Avoiding carbs, eating more protein. I will see patient in 6 months, we will discuss going for colonoscopy and upper endoscopy. Patient is agreeable to this plan and verbalizes understanding of instructions. She was given the opportunity to ask questions and all questions answered. ? Thank you for allowing me to participate in her care Medications Refilled linaclotide (Linzess) 290 mcg PO QAM 90 caps 2RF K59.00 pantoprazole 40 mg PO DAILY 90 tabs 2RF K21.9 TODAY'S VISIT Patient is here today for follow-up and to discuss going for colonoscopy. Patient reports that she has been doing well on Linzess. Able to move her bowels without any issues. Patient had colonoscopy in 2018 1 tubular adenoma found and recommendation was made for colonoscopy to be repeated in 5 years. Patient had upper endoscopy in in 2019 that showed gastritis. Patient has been on PPI since. Currently patient is on pantoprazole and is taking that daily. Takes famotidine at bedtime. Patient denies any dyspepsia, dysphagia or odynophagia. Denies any melena, hematochezia, unintentional weight loss or ribbon like stools. Patient denies any issues with anesthesia in the past. No history of sleep apnea. No respiratory or cardiac symptoms. [facility] Medical History Right sided sciatica Left sciatic nerve pain History of cocaine use Physical exam Tubular adenoma Asthma Diabetes 1.5, managed as type 2 Chronic idiopathic constipation GERD (gastroesophageal reflux disease) Surgical History Hx of section History of repair of hiatal hernia Hx of laparoscopic gastric banding Hx of esophagogastroduodenoscopy Hx of colonoscopy Family History Father Prostate CA Cancer of back Mother Diabetes 1.5, managed as type 2 CVD (cardiovascular disease) Social History Household Members: Other Household Members Other:: grandson Housing: House Alcohol intake: former Patient Tobacco Use Status: Current everyday Tobacco user Tobacco use type: Cigarette Cigarettes Per Day: 4 Years Smoked: 16 e-Cigarette/Vaping Use: Never Used Second Hand Smoke Exposure: No service: No Current occupational status: employed Current occupational exposures/hazards: No Sexual orientation: Straight/Heterosexual Gender identity: Female Cognitive needs: No Hearing needs: No Vision needs: Yes (reading glasses) Review of Systems Const Denies weight gain and Denies weight loss ENT Reports no additional complaints, Denies dysphagia and Denies odynophagia Card Reports no additional complaints Resp Reports no additional complaints GI Denies abdominal pain, Denies belching, Denies melena, Denies bloating, Denies change in bowel habits, Denies dysphagia, Denies excessive flatus, Denies dyspepsia, Denies heartburn, Denies diarrhea, Denies loose stools, Denies nausea, Denies odynophagia and Denies vomiting Musc Reports no additional complaints Neuro Reports no additional complaints Psych Reports no additional complaints Endo Reports no additional complaints Physical Exam Vital Signs: Last Vital Signs Pulse 97 10/25/23 15:59 BP 121/65 10/25/23 15:59 BMI result Body Mass Index 37.4 Const General: healthy appearing, no acute distress and well developed Nutritional Appearance: obese Orientation/consciousness: patient oriented x3 Resp Effort & Inspection: normal respiratory effort, able to speak in complete sentences, no tracheal deviation and symmetric chest movement Auscultation: clear to auscultation bilaterally Cardio Rate: regular rate GI Inspection: Yes normal to inspection, No distended and Yes obesity Palpation (GI): Soft to palpation, not firm, nontender and No hepatosplenomegaly present Auscultation: normal bowel sounds General: Yes no CVA tenderness Back/Spine/Pelvis Back: no CVA tenderness Skin General skin exam: elasticity normal, turgor normal and dry skin Neuro General: patient oriented x3 Psych Appearance: grossly normal Mental Status: mental status grossly normal Speech and movement: Normal speech and movement present Assessment & Plan Assessment & Plan (1) Chronic idiopathic constipation: Code(s): K59.04 - Chronic idiopathic constipation Category: Medical (2) GERD (gastroesophageal reflux disease): Code(s): K21.9 - Gastro-esophageal reflux disease without esophagitis Category: Medical Qualifiers: Esophagitis presence: esophagitis presence not specified Qualified Code(s): K21.9 - Gastro-esophageal reflux disease without esophagitis (3) Tubular adenoma: Code(s): D36.9 - Benign neoplasm, unspecified site Category: Medical (4) Screen for colon cancer: Code(s): Z12.11 - Encounter for screening for malignant neoplasm of colon Plan Patient will be book for upper endoscopy and colonoscopy. What to expect before during and after procedure discussed with patient. Patient will continue pantoprazole in the morning and famotidine at bedtime. Avoid dietary triggers. Upper endoscopy to rule out gastritis, esophagitis, duodenitis, gastric or peptic ulcers, Castanon's, H pylori. Continue Linzess daily. Discussed with patient the importance of good bowel prep and clear liquid diet day before procedure. I will see patient after the procedure, sooner on as needed basis. She is agreeable to this plan and verbalizes understanding of instructions. She was given the opportunity to ask questions and all questions answered. Thank you for allowing me to participate in her care
== END 2023-10-25 16:29 | disposition home or self-care (01) ==
PROVIDERS: PCP Internal Medicine; Visit Provider Nurse Practitioner Family
DX: K59.04 Chronic idiopathic constipation (principal); K21.9 Gastro-esophageal reflux disease without esophagitis; D36.9 Benign neoplasm, unspecified site; Z12.11 Encounter for screening for malignant neoplasm of colon
CPT/HCPCS: 99214

== ENCOUNTER → 2023-10-25 15:42 | Outpatient (BNVA) | payer OTHER, SELFPAY | PROVIDERS: PCP Internal Medicine; Visit Provider Nurse Practitioner Family ==

== ENCOUNTER 2023-11-15 08:39 | Outpatient (REF) | payer OTHER, SELFPAY ==
--- NOTE | ~2023-11-15 | XR_ITS ---
EXAMINATION: XR BILATERAL KNEE SERIES CLINICAL INFORMATION: Pain in the knee. COMPARISON: X-ray of the knees August 2018. TECHNIQUE: 3 views of each knee including AP upright. FINDINGS: RIGHT KNEE: Small marginal osteophytes about the lateral compartment and patellofemoral compartment without joint space narrowing indicative of mild osteoarthritis. Medial compartment: Normal. No effusion. LEFT KNEE: The medial and lateral compartments are normal. Small marginal osteophytes about the proximal patella without joint space narrowing indicative of mild osteoarthritis. No effusion. XR/XR knee RT 3V IMPRESSION: RIGHT KNEE: Mild osteoarthritis. LEFT KNEE: Mild osteoarthritis.
--- NOTE | ~2023-11-15 | XR_ITS ---
EXAMINATION: XR BILATERAL KNEE SERIES CLINICAL INFORMATION: Pain in the knee. COMPARISON: X-ray of the knees August 2018. TECHNIQUE: 3 views of each knee including AP upright. FINDINGS: RIGHT KNEE: Small marginal osteophytes about the lateral compartment and patellofemoral compartment without joint space narrowing indicative of mild osteoarthritis. Medial compartment: Normal. No effusion. LEFT KNEE: The medial and lateral compartments are normal. Small marginal osteophytes about the proximal patella without joint space narrowing indicative of mild osteoarthritis. No effusion. XR/XR knee LT 3V IMPRESSION: RIGHT KNEE: Mild osteoarthritis. LEFT KNEE: Mild osteoarthritis.
== END 2023-11-15 08:40 | disposition home or self-care (01) ==
LOC: HO.HOSX 08:39
PROVIDERS: Visit Provider Physician Assistant
DX: M17.0 Bilateral primary osteoarthritis of knee (principal); E11.9 Type 2 diabetes mellitus without complications
CPT/HCPCS: 20610; 73562; J1010

== ENCOUNTER 2023-11-15 10:48 | Outpatient (AMB) | payer OTHER, SELFPAY ==
--- NOTE | 2023-11-15 11:52 | MHC.OFFVIS ---
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 No hx of injury. Patient reports ongoing pain for many years. She states that her left knee is worse than the right knee. She expresses that the last injection gave her about 2 years of relief and she is looking to get injections today. 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 Patient reports pain present for many years. She states the left knee is worse than the right knee. She reports the last injection gave her about 2 years of relief. She is interested in another injection today. Patient was seen in the past by Dr. Monteiro and received a cortisone injection on 09/30/2018 in the right knee. Patient denies any known history of injury. Patient has a medical history of diabetes mellitus. [facility] Medical History Right sided sciatica Left sciatic nerve pain History of cocaine use Physical exam Tubular adenoma Asthma Diabetes 1.5, managed as type 2 Chronic idiopathic constipation GERD (gastroesophageal reflux disease) Surgical History Hx of section History of repair of hiatal hernia Hx of laparoscopic gastric banding Hx of esophagogastroduodenoscopy Hx of colonoscopy Family History Father Prostate CA Cancer of back Mother Diabetes 1.5, managed as type 2 CVD (cardiovascular disease) Social History Household Members: Other Household Members Other:: grandson Housing: House Alcohol intake: former Patient Tobacco Use Status: Current everyday Tobacco user Tobacco use type: Cigarette Cigarettes Per Day: 4 Years Smoked: 16 e-Cigarette/Vaping Use: Never Used Second Hand Smoke Exposure: No service: No Current occupational status: employed Current occupational exposures/hazards: No Sexual orientation: Straight/Heterosexual Gender identity: Female Cognitive needs: No Hearing needs: No Vision needs: Yes (reading glasses) Review of Systems Const All systems reviewed & are unremarkable except as noted in HPI and below Physical Exam Vital Signs: BMI result Body Mass Index 37.3 Const General: cooperative, healthy appearing and no acute distress Resp Effort & Inspection: normal respiratory effort and able to speak in complete sentences Cardio Rate: regular rate Peripheral pulses: Peripheral pulses 2+ throughout GI Palpation (GI): Soft to palpation Skin Lesions: no lesions Rashes: no rashes Extrem Other: Bilateral knees: Normal to inspection. No ecchymosis, erythema, or joint effusion. No tenderness to palpation along the medial or lateral joint lines. Full knee extension and flexion. Crepitus felt with ROM. NVI. Office Procedures Joint Injection/Drain Joint Injection/Drain Primary Site: right knee Secondary Site: left knee Prep: site was prepped using aseptic technique, ethochloride spray was applied and injection warnings given Injected: 40 mg of, 80 mg of, with 8 mL of (2% plain lido ) and in the joint Approach Used: anterolateral Procedure: The patient tolerated the procedure well, but had some pain with the injection and there was some relief with the local anesthesia Coding 28569 - Large joint Procedure code (CPT) selection complete Assessment & Plan Assessment & Plan (1) Osteoarthritis of right knee: Code(s): M17.11 - Unilateral primary osteoarthritis, right knee Category: Medical Qualifiers: Osteoarthritis type: unspecified Qualified Code(s): M17.11 - Unilateral primary osteoarthritis, right knee (2) Osteoarthritis of left knee: Code(s): M17.12 - Unilateral primary osteoarthritis, left knee Category: Medical Qualifiers: Osteoarthritis type: unspecified Qualified Code(s): M17.12 - Unilateral primary osteoarthritis, left knee (3) Diabetes mellitus: Code(s): E11.9 - Type 2 diabetes mellitus without complications Category: Medical Plan Ms. Mendez is a 58-year-old female who presents in the office today, as a new patient, for an evaluation of bilateral knee pain. Patient reports pain present for many years. She states the left knee is worse than the right knee. She reports the last injection gave her about 2 years of relief. She is interested in another injection today. Patient was seen in the past by Dr. Monteiro and received a cortisone injection on 09/30/2018 in the right knee. Patient denies any known history of injury. Patient has a medical history of diabetes mellitus. The patient was offered a cortisone injection in the bilateral knees with 40 mg of DepoMedrol. The patient was explained the risk, benefits, and alternatives to receiving this injection. After receiving consent for the injection, the patient had the procedure done while in the office today. The patient tolerated the procedure well with no complications. Due to the patient?s history of diabetes, they were instructed to monitor her blood glucose level. The patient was informed that they could see a rise in their numbers and if the numbers became too high, they were instructed to call their PCP. The patient was also informed that they could have facial flushing as a side effect of the injection, but this will pass. Follow up will be PRN, or sooner if needed. X-rays of the bilateral knees which were obtained while in the office today and were reviewed by me, Teagan Asif PA-C, revealed osteoarthritis bilaterally. Orders: Orders XR knee RT 3V Today M25.569 - Pain in unspecified knee Patient Instructions: Scribed by Belkis Beck medical records coder, for Teagan Asif PA-C on 11/15/2023 at 10:52 am, EST. Coding Level of Care Code New Pt Level 4 (43053) Diagnoses Osteoarthritis of right knee, unspecified osteoarthritis type M17.11 Osteoarthritis type: unspecified Osteoarthritis of left knee, unspecified osteoarthritis type M17.12 Osteoarthritis type: unspecified Diabetes mellitus E11.9 CPT Codes Coding - 73261 Large joint: 34044 - Large joint ([id number])
[2023-11-15 12:00] VITALS: BMI 37.3
== END 2023-11-15 12:08 | disposition home or self-care (01) ==
PROVIDERS: PCP Internal Medicine; Visit Provider Physician Assistant
DX: M17.0 Bilateral primary osteoarthritis of knee (principal); E11.9 Type 2 diabetes mellitus without complications
CPT/HCPCS: 20610; 99204

== ENCOUNTER 2023-11-19 15:46 | Outpatient (AMB) | payer OTHER, SELFPAY ==
--- NOTE | 2023-11-19 15:54 | A.OFFPC_ITS ---
Vital Signs 11/19/23 15:55 Height 5 ft 2 in Weight 202 lb BMI 36.9 BP 130/70 Blood Pressure Location Lt brachial Position Sitting Intake Visit Reasons: pe Intake Note: Patient here for a physical exam Communications Attendant Required: No Accompanied by: Self / Same As Patient Allergies naproxen [NAPROXEN] Allergy (Intermediate, Verified 11/19/23 16:25) CHEST TIGHTNESS, vomiting Butrans Allergy (Unknown, Uncoded 11/19/23 16:25) rash Medication List - Last Reconciled 11/19/23 by Chanell Ford MD acetaminophen ER 650 mg PO Q8H PRN atorvastatin 10 mg PO BEDTIME 90 days baclofen 20 mg PO BID PRN NS bisacodyl (Dulcolax (bisacodyl)) 20 mg (4 x 5 mg) PO ONCE 1 day citalopram 40 mg PO DAILY 90 days famotidine (Pepcid) 20 mg PO BEDTIME PRN gabapentin 300 mg PO BEDTIME hydroquinone 4% 1 appl topical DAILY 30 days lactobacillus combination no.4 (Probiotic) 3,000 mmu cells PO DAILY lidocaine 4% (Aspercreme (lidocaine)) 1 patch topical DAILY PRN linaclotide (Linzess) 290 mcg PO QAM lisinopril 10 mg PO DAILY 90 days menthol 2.5% (Icy Hot Pain Relieving) 1 appl topical BID-QID PRN metformin 1,000 mg PO BID 90 days methylcellulose (laxative) (Citrucel) 500 mg PO DAILY mirtazapine 15 mg PO BEDTIME 90 days montelukast 10 mg PO DAILY pantoprazole 40 mg PO DAILY polyethylene glycol 3350 (Miralax) 238 grams PO ONCE tretinoin 0.1% 1 appl topical BEDTIME 30 days Ventolin HFA 90 mcg/actuation (albuterol sulfate) 2 puffs inhalation Q6H PRN 30 days NS Tobacco use date assessed: 11/19/23 Dental Screening Dental Screen Date: 11/19/23 Did you have a dental visit in the last 12 months?: Yes Did you have a dental problem in the last 6 months where you did not have access to dental care?: No Was dental information given to patient?: Patient has dentist HPI HPI Comments History of Present Illness Details This is a 58-year-old female with diabetes mellitus that comes for her physical exam. A1c within goal. Last mammogram was 2021 and I will order another mammogram. Last Pap smear will be 2022. Colonoscopy scheduled for February 2024. No chest pain or shortness of breath. [facility] Medical History (Updated 11/19/23 @ 17:36 by Chanell Ford MD) Sacroiliitis Right sided sciatica Left sciatic nerve pain History of cocaine use Physical exam Tubular adenoma Asthma Diabetes 1.5, managed as type 2 Chronic idiopathic constipation GERD (gastroesophageal reflux disease) Surgical History Hx of section History of repair of hiatal hernia Hx of laparoscopic gastric banding Hx of esophagogastroduodenoscopy Hx of colonoscopy Family History Father Prostate CA Cancer of back Mother Diabetes 1.5, managed as type 2 CVD (cardiovascular disease) Social History Household Members: Other Household Members Other:: grandson Housing: House Alcohol intake: former Patient Tobacco Use Status: Current everyday Tobacco user Tobacco use type: Cigarette Cigarettes Per Day: 4 Years Smoked: 16 e-Cigarette/Vaping Use: Never Used Second Hand Smoke Exposure: No service: No Current occupational status: employed Current occupational exposures/hazards: No Sexual orientation: Straight/Heterosexual Gender identity: Female Cognitive needs: No Hearing needs: No Vision needs: Yes (reading glasses) Questionnaire Thrive Questionnaire Date Thrive assessed: 08/08/22 ERIKA-7 AMB Questionnaire ERIKA-7 Date ERIKA - 7 assessed: 08/08/22 Source: Developed by Drs. Calvin Maria, Meghan Eddy, oJsh Blandon and colleagues, with an educational andi from [employer]. Review of Systems Const All systems reviewed & are unremarkable except as noted in HPI and below Eyes Reports no additional complaints, Denies change in vision and Denies other visual disturbances Card Denies chest pain at rest, Denies chest pain with activity, Denies edema, Denies irregular heart rhythm, Denies claudication, Denies dyspnea, Denies dyspnea on exertion, Denies orthopnea, Denies paroxysmal nocturnal dyspnea and Denies slow heart rate Resp Denies cough, Denies dyspnea and Denies dyspnea on exertion GI Denies abdominal pain, Denies change in bowel habits, Denies excessive flatus, Denies nausea and Denies vomiting Denies urinary incontinence, Denies urinary hesitancy and Denies urinary urgency Physical exam (Primary Care) Vital Signs: Last Vital Signs BP 130/70 11/19/23 15:55 BMI result Body Mass Index 36.9 Tobacco/Smoking Status: Tobacco use Status Tobacco use date assessed 11/19/23 11/19/23 16:02 Patient Tobacco Use Status Current everyday Tobacco 11/19/23 16:02 Tobacco use type Cigarette 11/19/23 16:02 e-Cigarette/Vaping Use Never Used 11/19/23 16:02 Thrive Assessment: Date of Thrive Assessment Date Thrive assessed 08/08/22 11/19/23 16:02 Const Orientation/consciousness: patient oriented x3 HENMT Head: Yes normal to inspection, Yes normocephalic and Yes atraumatic Ears: external ears normal Eyes General: appearance normal, both eyes and all related structures Eyelids: Yes eyelids normal Conjunctivae: conjunctivae normal Neck Neck: Yes normal visual inspection and Yes supple Resp Effort & Inspection: normal respiratory effort Auscultation: clear to auscultation bilaterally Cardio Jugular venous distension: no JVD Rate: regular rate Rhythm: regular rhythm Heart sounds: S1 normal heart sound present and S2 normal heart sound present GI Inspection: Yes normal to inspection Palpation (GI): Soft to palpation and nontender Auscultation: normal bowel sounds Skin General skin exam: no rashes or lesions noted Neuro General: patient oriented x3 and no focal motor deficits Extrem General: Yes full ROM Psych Appearance: grossly normal Results AMB Hemoglobin A1c AMB Hemoglobin A1c 6.8 % Last Edit by JB Correa on 11/19/23 16:0 6 Results Reviewed Results Reviewed: Laboratory Last Values Hgb A1c (Clinic) 6.8 % (4.0-6.0) H 11/19/23 15:54 Assessment and Plan Assessment & Plan (1) Physical exam: Code(s): Z00.00 - Encounter for general adult medical examination without abnormal findings Plan: Repeat in a year. (2) Diabetes mellitus: Code(s): E11.9 - Type 2 diabetes mellitus without complications Plan: Continue metformin. A1c goal is equal or less than 7%. Orders: Orders MM screening mammo BI Today Z12.31 - Encounter for screening mammogram for malignant neoplasm of breast Microalbumin, Random (w Creat) Today E11.9 - Type 2 diabetes mellitus without complications AMB Hemoglobin A1c Today E11.9 - Type 2 diabetes mellitus without complications XR DEXA axial skeleton Today N95.9 - Unspecified menopausal and perimenopausal disorder Lipid Panel Today E11.9 - Type 2 diabetes mellitus without complications, E78.5 - Hyperlipidemia, unspecified Comprehensive Guion. Panel Fast Today E11.9 - Type 2 diabetes mellitus without complications Vitamin D 25-OH Total Today E55.9 - Vitamin D deficiency, unspecified Medications: New hydroquinone 4% 1 appl topical DAILY 28.4 grams 3RF 30 days Coding Level of Care Code Est Pt Prev Care 40-64y(45951) Diagnoses Physical exam Z00.00 Diabetes mellitus E11.9 Time Spent (min) 35
[2023-11-19 15:55] VITALS: BP 130/70; BMI 36.9
== END 2023-11-19 16:33 | disposition home or self-care (01) ==
PROVIDERS: PCP Internal Medicine; Visit Provider Internal Medicine
DX: Z00.00 Encounter for general adult medical examination without abnormal findings (principal); E11.9 Type 2 diabetes mellitus without complications
CPT/HCPCS: 83036; 99396

== ENCOUNTER 2023-12-26 12:45 | Outpatient (REF) | payer OTHER, SELFPAY ==
--- NOTE | ~2023-12-26 | MM_ITS ---
EXAMINATION: BONE DENSITOMETRY CLINICAL INDICATION: Menopause. COMPARISON: This is the patient's baseline examination. TECHNIQUE: Using a [employer] DXA System (software version: 13.1) manufactured by [employer], dual-energy x-ray absorptiometry was performed of the lumbar spine and left hip. The images are of good technical quality. Summary results are attached. FINDINGS: AP SPINE L1-L4: BMD 1.280 g/cm2, Z-score 1.1, T-score 0.8, normal. Artifact from LAP-BAND reservoir present overlying the L1 vertebra. LEFT FEMUR, NECK: BMD 0.650 g/cm2, Z-score -2.1, T-score -2.8, osteoporosis. LEFT FEMUR, TOTAL: BMD 0.665 g/cm2, Z-score -2.4, T-score -2.7, osteoporosis. IDENTIFIED RISK FACTORS: Early menopause, tobacco use (current smoker), secondary osteoporosis. HISTORY OF FRACTURE: None listed. MEDICATIONS: Calcium, vitamin D. MM/XR DEXA axial skeleton IMPRESSION: 1. DIAGNOSIS: Osteoporosis based on the lowest T-score value of -2.8 in the femoral neck applying World Health Organization criteria. 2. 10-YEAR FRACTURE RISK PREDICTION, FRAX: According to the guidelines, FRAX calculation should only be performed on patients in the osteopenia bone density category. Therefore, FRAX was not performed on this patient. 3. Treatment Recommendations: NOF guidelines recommend consideration for treatment in postmenopausal women and men age 50 and older presenting with the following: -A hip or vertebral (clinical or morphometric) fracture. -T-score less than or equal to -2.5 at the femoral neck or spine after appropriate evaluation to exclude secondary causes. -Low bone mass at the hip or spine and a 10-year fracture probability by FRAX of greater than or equal to 3% for hip fracture or greater than or equal to 20% for major osteoporotic fracture based on the [place] adapted WHO algorithm. 4. Other Recommendations: All treatment decisions require clinical judgment and consideration of individual patient factors, including patient preferences, comorbidities, previous drug use, risk factors not captured in the FRAX model (e.g. frailty, falls, vitamin D deficiency, increased bone turnover, interval significant decline in bone density) and possible under or overestimation of fracture risk by FRAX. Additional medical evaluation for secondary cause of low bone mineral density may be appropriate. FUTURE SCAN RECOMMENDATION: People with diagnosed cases of osteoporosis or at high risk for fracture should have regular bone mineral density tests. For patients eligible for Medicare, routine testing is allowed once every 2 years. The testing frequency can be increased to one year for patients who have rapidly progressing disease, those who are receiving or discontinuing medical therapy to restore bone mass, or have additional risk factors.
== END 2023-12-26 12:46 | disposition home or self-care (01) ==
LOC: HO.MAMMO 12:45
PROVIDERS: PCP Internal Medicine; Visit Provider Internal Medicine
DX: Z13.820 Encounter for screening for osteoporosis (principal); Z78.0 Asymptomatic menopausal state
CPT/HCPCS: 77080

== ENCOUNTER 2023-12-30 10:47 | Outpatient (REF) | payer OTHER, SELFPAY ==
[2023-12-30 12:32] LABS: Alanine Aminotransferase 20 U/L (0-31); Albumin Level 4.3 g/dL (3.5-5.0); Alkaline Phosphatase 77 U/L (39-117); Anion Gap 10 (12-20); Aspartate Amino Transferase 22 U/L (5-31); Bilirubin Total 0.4 mg/dL (0.0-1.0); Blood Urea Nitrogen 12 mg/dL (9-16); Calcium 10.1 mg/dL (8.4-10.2); Carbon Dioxide 28 mmol/L (22-29); Chloride 104 mmol/L (96-108); Cholesterol 173 mg/dL (<200); Estimated Glomerular Filt Rate > 60; Glucose Fasting 155 mg/dL (60-99); HDL Cholesterol 65 mg/dL (>40); LDL Cholesterol Calculated 94 mg/dL (<100); Sodium 138 mmol/L (135-145); Total Protein 7.8 g/dL (6.5-8.0); Triglycerides 74 mg/dL (<150)
[2023-12-30 12:36] LABS: Vitamin D 25-OH Total 46.4 ng/mL (>30)
== END 2023-12-30 10:48 | disposition home or self-care (01) ==
LOC: HO.LAB 10:47
PROVIDERS: PCP Internal Medicine; Visit Provider Internal Medicine
DX: E11.9 Type 2 diabetes mellitus without complications (principal); E55.9 Vitamin D deficiency, unspecified; E78.5 Hyperlipidemia, unspecified
CPT/HCPCS: 36415; 80053; 80061; 82306

== ENCOUNTER 2023-12-31 16:22 | Outpatient (REF) | payer OTHER, SELFPAY | END 2023-12-31 16:23 | disposition home or self-care (01) | LOC: HO.MAMMO 16:22 | PROVIDERS: PCP Internal Medicine; Visit Provider Internal Medicine | DX: Z12.31 Encounter for screening mammogram for malignant neoplasm of breast (principal) | CPT/HCPCS: 77063; 77067 ==

== ENCOUNTER → 2023-12-31 16:30 | Outpatient (BNV) | payer OTHER, SELFPAY | PROVIDERS: PCP Internal Medicine; Visit Provider Radiology Diagnostic Radiology | DX: Z12.31 Encounter for screening mammogram for malignant neoplasm of breast (principal) | CPT/HCPCS: 77063; 77067 ==

== ENCOUNTER 2023-12-31 17:19 | Outpatient (REF) | payer OTHER, SELFPAY ==
[2023-12-31 18:20] LABS: Microalbum/Creatinine Ratio Ur 9.9 ug/mg cr (<30)
== END 2023-12-31 17:20 | disposition home or self-care (01) ==
LOC: HO.LNP 17:19
PROVIDERS: Visit Provider Internal Medicine
DX: E11.9 Type 2 diabetes mellitus without complications (principal)
CPT/HCPCS: 82043; 82570

== ENCOUNTER 2024-02-18 12:32 | Outpatient (AMB) | payer OTHER, SELFPAY ==
[2024-02-18 12:35] VITALS: BMI 36.9
--- NOTE | 2024-02-18 12:35 | MHC.OFFVIS ---
Vital Signs 02/18/24 12:35 Height 5 ft 2 in Weight 202 lb BMI 36.9 Intake Visit Reasons: INJ- LT knee INJ last inj 11/15/23 Intake Note: Anamika is a 58 year old female who presents today as a new patient for a evaluation of her bilateral knee pain, last injections 11/15/23. Patient reports that her pain has gotten better on her lateral aspect of her knee, however on her medical side of the knee she continues to have pain. Allergies naproxen [NAPROXEN] Allergy (Intermediate, Verified 02/18/24 12:35) CHEST TIGHTNESS, vomiting Butrans Allergy (Unknown, Uncoded 11/19/23 16:25) rash HPI HPI INJ- LT knee INJ last inj 11/15/23: Details: 58-year-old female who presents in the office today for a follow-up of bilateral knee osteoarthritis. I last saw the patient in the office on 11/15/23 when she received cortisone injections in the bilateral knees. ? ? While in the office today, the patient reports the pain on the lateral aspect of the bilateral knees have improved but the medial side continues to have pain. ? ? Patient has a medical history of diabetes mellitus.? [facility] Medical History (Updated 01/05/24 @ 16:32 by Chanell Ford MD) Sacroiliitis Right sided sciatica Left sciatic nerve pain History of cocaine use Physical exam Tubular adenoma Asthma Diabetes 1.5, managed as type 2 Chronic idiopathic constipation GERD (gastroesophageal reflux disease) Surgical History Hx of section History of repair of hiatal hernia Hx of laparoscopic gastric banding Hx of esophagogastroduodenoscopy Hx of colonoscopy Family History Father Prostate CA Cancer of back Mother Diabetes 1.5, managed as type 2 CVD (cardiovascular disease) Social History Household Members: Other Household Members Other:: grandson Housing: House Alcohol intake: former Patient Tobacco Use Status: Current everyday Tobacco user Tobacco use type: Cigarette Cigarettes Per Day: 4 Years Smoked: 16 e-Cigarette/Vaping Use: Never Used Second Hand Smoke Exposure: No service: No Current occupational status: employed Current occupational exposures/hazards: No Sexual orientation: Straight/Heterosexual Gender identity: Female Cognitive needs: No Hearing needs: No Vision needs: Yes (reading glasses) Review of Systems Const All systems reviewed & are unremarkable except as noted in HPI and below Physical Exam Vital Signs: BMI result Body Mass Index 36.9 Const General: cooperative, healthy appearing and no acute distress Resp Effort & Inspection: normal respiratory effort and able to speak in complete sentences Cardio Rate: regular rate Peripheral pulses: Peripheral pulses 2+ throughout GI Palpation (GI): Soft to palpation Skin Lesions: no lesions Rashes: no rashes Extrem Other: Bilateral knees: Normal to inspection. No ecchymosis, erythema, or joint effusion. No tenderness to palpation along the medial or lateral joint lines. Full knee extension and flexion. Crepitus felt with ROM. NVI. Office Procedures Joint Injection/Aspiration Joint Injection/Aspiration Primary Site: left knee Prep: site was prepped using aseptic technique, ethochloride spray was applied and injection warnings given Injected: 40 mg of, DepoMedrol, with 8 mL of (2% plain lido ) and in the joint Approach Used: anterolateral Procedure: The patient tolerated the procedure well, but had some pain with the injection and there was some relief with the local anesthesia Coding 84129 - Large joint Procedure code (CPT) selection complete Assessment & Plan Assessment & Plan (1) Osteoarthritis of right knee: Code(s): M17.11 - Unilateral primary osteoarthritis, right knee Category: Medical Qualifiers: Osteoarthritis type: unspecified Qualified Code(s): M17.11 - Unilateral primary osteoarthritis, right knee (2) Osteoarthritis of left knee: Code(s): M17.12 - Unilateral primary osteoarthritis, left knee Category: Medical Qualifiers: Osteoarthritis type: unspecified Qualified Code(s): M17.12 - Unilateral primary osteoarthritis, left knee (3) Diabetes mellitus: Code(s): E11.9 - Type 2 diabetes mellitus without complications Category: Medical Plan Ms. Mendez is a 58-year-old female who presents in the office today for a follow-up of bilateral knee osteoarthritis. I last saw the patient in the office on 11/15/23 when she received cortisone injections in the bilateral knees. ? ? While in the office today, the patient reports the pain on the lateral aspect of the bilateral knees have improved but the medial side continues to have pain. ? ? Patient has a medical history of diabetes mellitus.?A1c of 6.8 as of 11/19/23. ? The patient was offered a cortisone injection in the bilateral knees with 40 mg of DepoMedrol. The patient was explained the risk, benefits, and alternatives to receiving this injection. After receiving consent for the injection, the patient had the procedure done while in the office today. The patient tolerated the procedure well with no complications.? ?? Due to the patient?s history of diabetes, they were instructed to monitor her blood glucose level. The patient was informed that they could see a rise in their numbers and if the numbers became too high, they were instructed to call their PCP. The patient was also informed that they could have facial flushing as a side effect of the injection, but this will pass. Follow-up will be PRN, or sooner if needed.? Patient Instructions: Scribed by Belkis Beck medical administrative technician, for Teagan Asif PA-C on 02/18/2024 at 12:46 pm, EST.? Coding Level of Care Code Est Pt Level 4 (36427) Diagnoses Osteoarthritis of right knee, unspecified osteoarthritis type M17.11 Osteoarthritis type: unspecified Osteoarthritis of left knee, unspecified osteoarthritis type M17.12 Osteoarthritis type: unspecified Diabetes mellitus E11.9 CPT Codes Coding - 77881 Large joint: 03018 - Large joint ([id number])
== END 2024-02-18 13:08 | disposition home or self-care (01) ==
PROVIDERS: PCP Internal Medicine; Visit Provider Physician Assistant
DX: M17.0 Bilateral primary osteoarthritis of knee (principal); E11.9 Type 2 diabetes mellitus without complications
CPT/HCPCS: 20610; 99214

== ENCOUNTER → 2024-02-18 12:32 | Outpatient (BNVA) | payer OTHER, SELFPAY | PROVIDERS: PCP Internal Medicine; Visit Provider Physician Assistant | DX: M17.0 Bilateral primary osteoarthritis of knee (principal); E11.9 Type 2 diabetes mellitus without complications | CPT/HCPCS: 20610; J1010 ==

== ENCOUNTER 2024-02-27 07:14 | Day surgery (SDC) | payer OTHER, SELFPAY ==
[2024-02-25 08:18] VITALS: BMI 36.9
--- NOTE | 2024-02-26 08:48 | HO.ANESPROP2 ---
Documented by User: Kirti Garcia NP 02/26/24 08:51 HPI - Anesthesia Eval Consult details Narrative: 58yo F for Upper Endoscopy and Colonoscopy PMFSH Active Problems Active Problems: All Active Problems Osteoporosis (Acute) Physical exam (Acute) Diabetes mellitus (Acute) Osteoarthritis of left knee (Acute) Osteoarthritis of right knee (Acute) Low back pain, unspecified (Acute) Trochanteric bursitis, right hip (Acute) Encounter for medication monitoring (Acute) Hyperlipidemia LDL goal <70 (Acute) Lumbosacral radiculopathy due to degenerative joint disease of spine (Acute) Sacroiliac joint pain (Acute) Osteoarthritis of right hip (Acute) Serum calcium elevated (Acute) Smoker (Acute) Obese (Acute) Bilateral primary osteoarthritis of knee (Acute) DMII (diabetes mellitus, type 2) (Acute) HTN (hypertension) (Acute) Tubular adenoma (Acute) Chronic idiopathic constipation (Acute) GERD (gastroesophageal reflux disease) (Acute) Past Medical History Medical History Osteoarthritis Sacroiliitis Right sided sciatica Left sciatic nerve pain History of cocaine use Tubular adenoma Asthma Diabetes 1.5, managed as type 2 Chronic idiopathic constipation GERD (gastroesophageal reflux disease) Family History Family History Father Prostate CA Cancer of back Mother Diabetes 1.5, managed as type 2 CVD (cardiovascular disease) Surgical History Surgical History Hx of section History of repair of hiatal hernia Hx of laparoscopic gastric banding Hx of esophagogastroduodenoscopy Hx of colonoscopy Social History Social History Household Members: Other Household Members Other:: grandson Housing: House Alcohol intake: former Patient Tobacco Use Status: Current everyday Tobacco user Tobacco use type: Cigarette Cigarettes Per Day: 4 Years Smoked: 16 e-Cigarette/Vaping Use: Never Used Second Hand Smoke Exposure: No Use of substances other than those prescribed or required for medical reasons: No Are you DNR?: No Advance Directives: No Advance Directives Information Provided: Yes Recently lost weight without trying: No service: No Current occupational status: employed Current occupational exposures/hazards: No Sexual orientation: Straight/Heterosexual Gender identity: Female Cognitive needs: No Hearing needs: No Vision needs: Yes (reading glasses) Meds Allergies Allergy/AdvReac Type Severity Reaction Status Date / Time buprenorphine [From Butrans] Allergy Intermediate Rash Verified 02/27/24 08:10 naproxen [NAPROXEN] Allergy Intermediate CHEST Verified 02/27/24 08:10 TIGHTNESS, vomiting Home Medications ?Medication ?Instructions ?Recorded ?Confirmed ?Last Taken ?Type lidocaine 4 % topical patch 1 patch topical DAILY PRN Pain 06/29/21 02/25/24 Unknown History (Aspercreme (lidocaine)) menthol 2.5 % topical gel (Icy Hot 1 appl topical BID-QID PRN Pain 06/29/21 02/25/24 Unknown History Pain Relieving) Exam Height,Weight and Vital Signs: Height 5 ft 2 in Weight 91.626 kg Pertinent Lab Results Pertinent Lab Results: Laboratory Tests 12/30/23 10:56 Sodium 138 Potassium 4.0 Chloride 104 Carbon Dioxide 28 BUN 12 Creatinine 0.81 Assessment and Plan Assessment Anesthesia Assessment: Chart Reviewed Documented by User: Areli Garay MD 02/27/24 08:39 PMFSH Active Problems Active Problems: All Active Problems Osteoporosis (Acute) Physical exam (Acute) Diabetes mellitus (Acute) Osteoarthritis of left knee (Acute) Osteoarthritis of right knee (Acute) Low back pain, unspecified (Acute) Trochanteric bursitis, right hip (Acute) Encounter for medication monitoring (Acute) Hyperlipidemia LDL goal <70 (Acute) Lumbosacral radiculopathy due to degenerative joint disease of spine (Acute) Sacroiliac joint pain (Acute) Osteoarthritis of right hip (Acute) Serum calcium elevated (Acute) Smoker (Acute) Obese (Acute) BMI 36.9 Denies VICTOR M Bilateral primary osteoarthritis of knee (Acute) DMII (diabetes mellitus, type 2) (Acute) HTN (hypertension) (Acute) Tubular adenoma (Acute) Chronic idiopathic constipation (Acute) GERD (gastroesophageal reflux disease) (Acute) Asthma. Rare use of inhaler Past Medical History Medical History Osteoarthritis Sacroiliitis Right sided sciatica Left sciatic nerve pain History of cocaine use Tubular adenoma Asthma Diabetes 1.5, managed as type 2 Chronic idiopathic constipation GERD (gastroesophageal reflux disease) Family History Family History Father Prostate CA Cancer of back Mother Diabetes 1.5, managed as type 2 CVD (cardiovascular disease) Family history of problems with anesthesia: No Surgical History Surgical History Hx of section History of repair of hiatal hernia Hx of laparoscopic gastric banding Hx of esophagogastroduodenoscopy Hx of colonoscopy History of Problems with Anesthesia: No Social History Social History Household Members: Other Household Members Other:: grandson Housing: House Alcohol intake: former Patient Tobacco Use Status: Current everyday Tobacco user Tobacco use type: Cigarette Cigarettes Per Day: 4 Years Smoked: 16 e-Cigarette/Vaping Use: Never Used Second Hand Smoke Exposure: No Use of substances other than those prescribed or required for medical reasons: No Are you DNR?: No Advance Directives: No Advance Directives Information Provided: Yes Recently lost weight without trying: No service: No Current occupational status: employed Current occupational exposures/hazards: No Sexual orientation: Straight/Heterosexual Gender identity: Female Cognitive needs: No Hearing needs: No Vision needs: Yes (reading glasses) Meds Allergies Allergy/AdvReac Type Severity Reaction Status Date / Time buprenorphine [From Butrans] Allergy Intermediate Rash Verified 02/27/24 08:10 naproxen [NAPROXEN] Allergy Intermediate CHEST Verified 02/27/24 08:10 TIGHTNESS, vomiting Home Medications ?Medication ?Instructions ?Recorded ?Confirmed ?Last Taken ?Type lidocaine 4 % topical patch 1 patch topical DAILY PRN Pain 06/29/21 02/25/24 Unknown History (Aspercreme (lidocaine)) menthol 2.5 % topical gel (Icy Hot 1 appl topical BID-QID PRN Pain 06/29/21 02/25/24 Unknown History Pain Relieving) Exam Height,Weight and Vital Signs: Height 5 ft 2 in Weight 91.626 kg Vital Signs Temp Pulse Resp BP Pulse Ox O2 Del Method 02/27/24 07:42 97.0 F 95 16 127/79 97 Room Air Pertinent Lab Results Pertinent Lab Results: Laboratory Tests 12/30/23 10:56 Sodium 138 Potassium 4.0 Chloride 104 Carbon Dioxide 28 BUN 12 Creatinine 0.81 Lab Results 02/27/24 Range/Units 08:04 POC Glucose 151 H (60-115) mg/dL Airway Mallampati Class: III (Small mouth) TM Dist: >3cm Neck ROM: Full Loose/Missing/Broken Teeth: No (Denies broken or loose teeth) Heart: RRR Lungs: CTAB Assessment and Plan Assessment Anesthesia Assessment: Anesthesia Plan Discussed and Chart Reviewed Final Anesthetic Review Family History of Problems with Anesthesia: No History of Problems with Anesthesia: No NPO: Yes ASA Class: III Final Preanesthetic Review: No Changes in Pt Med Stat, Meds/Allgs Chart Reviewed, Consent Obtained/Reviewed and Anes Risks/Benef Reviewed Patient Risk: Intermediate Procedure Risk: Low Assessment/Block/Sedation in SS: Assess/Block/Sedation-SS Anesthetic Plan Anesthetic Plan: TIVA Disposition: Standard PACU
[2024-02-27 07:22] VITALS: BMI 36.9
[2024-02-27 07:42] VITALS: BP 127/79; PULSE 95; RESP 16; TEMP 36.1; O2SAT 97
[2024-02-27] MEDS: Lactated Ringers 1,000 ML 100 ML IVCONT (07:44)
--- NOTE | 2024-02-27 07:59 | P.OPN-COLO_ITS ---
Colonoscopy Operative Note Operative Note Date of Service: 02/27/24 Narrative: Procedure: Upper endoscopy and colonoscopy Indication: GERD, screening Endoscopist: Alice Treviño MD Anesthesia Provider: Areli Garay MD Anesthesia type: MAC Instrument: [id number] and [id number] EGD Procedure:?? The procedure, indications, preparation and potential complications were reviewed with the patient, who indicated understanding and gave written informed consent to proceed. The endoscope was introduced through the mouth, and advanced to the 2nd part of the duodenum. The mucosa was carefully examined on slow withdrawal of the endoscope. The patient tolerated the procedure well. There were no immediate complications.? EGD Findings:? * Esophagus:? Normal esophageal mucosa was noted. The Z-line was at 37 cm. Cold forceps biopsies were taken from lower esophagus to evaluate for histological signs of GERD. * Stomach:? Normal gastric mucosa. Retroflexion was performed in the cardia. Random cold forceps biopsies were taken from the stomach to rule out H pylori. * Duodenum:? 1 normal duodenal mucosa. Cold forceps biopsies were taken from the duodenal bulb and 2nd portion of the duodenum to rule out celiac sprue. Colonoscopy Procedure:? The patient was then turned for the colonoscopy. A digital rectal exam was performed which was normal.? A distal attachment cap was affixed to the tip of the scope and the colonoscope was then inserted through the anus and advanced through the colon and advanced to the cecum at 70 cm.? Appendiceal orifice and ileocecal valve were identified. Mucosa was carefully examined under high definition white light as the instrument was slowly withdrawn in a retrograde panoramic fashion. Retroflexion was performed in ascending colon and rectum. The procedure was somewhat difficult and required a LLQ lift to intubate the cecum. The quality of the prep was BBPS: 2+2+2 = adequate Withdrawal time 11 minutes Limitations: No limitations Findings: Mucosa: Normal colon mucosa. Protruding lesions: * 1 sessile polyp of size 2 mm noted in the descending colon. Cold snare polypectomy was performed. The polyp was removed and retrieved. * Large internal hemorrhoids without stigmata of recent bleeding. Impression: 1. Normal esophagus (biopsy) 2. Normal stomach (biopsy) 3. Normal duodenal (biopsy) 4. One polyp removed from the colon 5. Internal hemorrhoids Recommendations:?? * Follow-up path results * Avoid NSAIDs * If colon polyp is an adenoma, recommend repeat colo in 5 years due prep.
--- NOTE | 2024-02-27 07:59 | MHC.SHP ---
Pre-Procedural Eval Section A - 24 Hr Update-Section A only Date of Service: 02/27/24 Section B - Complete if H&P > 30 days Chief Complaint: Chronic idiopathic constipation,gerd, Details of Present Illness: Right sided sciatica Left sciatic nerve pain History of cocaine use Physical exam Tubular adenoma Asthma Diabetes 1.5, managed as type 2 Chronic idiopathic constipation GERD (gastroesophageal reflux disease) Surgical History Hx of section History of repair of hiatal hernia Hx of laparoscopic gastric banding Hx of esophagogastroduodenoscopy Hx of colonoscopy Allergies: Allergies Allergy/AdvReac Type Severity Reaction Status Date / Time buprenorphine [From Butrans] Allergy Intermediate Rash Verified 02/25/24 08:11 naproxen [NAPROXEN] Allergy Intermediate CHEST Verified 02/18/24 12:35 TIGHTNESS, vomiting Review of Systems Review of Systems Comment: Ten point ROS negative Exam Exam Comment: Gen appear: No acute distress HEENT: no icterus Chest: No overt resp distress Abd: soft, nontender, nondistended Psych: Stable affect, answering questions appropriately Neuro: A/Ox3 noted to move all extremities spontaneously Ext: no peripheral edema Plan Diagnosis/Plan: Unchanged I have reviewed the history and physical and performed a pertinent physical examination on my patient. No changes have occurred unless specified. Time Spent With Patient Time: Total time managing care of this patient today ____ minutes.
[2024-02-27 08:08] LABS: Glucose, Whole Blood 151 mg/dL (60-115)
[2024-02-27 09:09] VITALS: BP 131/73; PULSE 107; RESP 16; TEMP 36.6; O2SAT 96
[2024-02-27 09:24] VITALS: BP 138/81; PULSE 90; RESP 18; TEMP 36.1; O2SAT 99
== END 2024-02-27 09:45 | disposition home or self-care (01) ==
PROVIDERS: PCP Internal Medicine; Visit Provider Internal Medicine
PROC: (CPT 43239; principal; 2024-02-27 09:10)
DX: K21.9 Gastro-esophageal reflux disease without esophagitis (principal); Z12.11 Encounter for screening for malignant neoplasm of colon; D12.4 Benign neoplasm of descending colon; K64.8 Other hemorrhoids; K59.04 Chronic idiopathic constipation; Z86.010 Personal history of colon polyps; E11.9 Type 2 diabetes mellitus without complications; I10 Essential (primary) hypertension; E78.5 Hyperlipidemia, unspecified; F17.210 Nicotine dependence, cigarettes, uncomplicated; Z79.899 Other long term (current) drug therapy; Z79.84 Long term (current) use of oral hypoglycemic drugs; Z79.02 Long term (current) use of antithrombotics/antiplatelets
CPT/HCPCS: 43239; 45385; 82947; 88305; 88313; 88342; J2704

== ENCOUNTER → 2024-02-27 07:14 | Outpatient (BNV) | payer OTHER, SELFPAY | PROVIDERS: PCP Internal Medicine; Visit Provider Internal Medicine | DX: Z12.11 Encounter for screening for malignant neoplasm of colon (principal); D12.4 Benign neoplasm of descending colon; K64.8 Other hemorrhoids; K21.9 Gastro-esophageal reflux disease without esophagitis | CPT/HCPCS: 43239; 45385 ==

== ENCOUNTER 2024-03-18 15:04 | Outpatient (AMB) | payer OTHER, SELFPAY ==
[2024-03-18 15:30] VITALS: BP 126/71; PULSE 86; O2SAT 98; BMI 36.9
--- NOTE | 2024-03-18 15:30 | MHC.OFFVIS ---
Vital Signs 03/18/24 15:30 Height 5 ft 2 in Weight 202 lb BMI 36.9 BP 126/71 Blood Pressure Location Rt brachial Position Sitting Pulse 86 Pulse Source Pulse Oximeter Pulse Oximetry (%) 98 Oxygen Delivery Method Room Air Intake Visit Reasons: Follow Up For injections Allergies buprenorphine [From Butrans] Allergy (Intermediate, Verified 03/18/24 15:30) Rash naproxen [NAPROXEN] Allergy (Intermediate, Verified 03/18/24 15:30) CHEST TIGHTNESS, vomiting Medication List - Last Reconciled 03/18/24 by Regina Zayas acetaminophen ER 650 mg PO Q8H PRN atorvastatin 10 mg PO BEDTIME 90 days baclofen 20 mg PO BID PRN NS citalopram 40 mg PO DAILY 90 days famotidine (Pepcid) 20 mg PO BEDTIME PRN gabapentin 300 mg PO BEDTIME hydroquinone 4% 1 appl topical DAILY 30 days lactobacillus combination no.4 (Probiotic) 3,000 mmu cells PO DAILY lidocaine 4% (Aspercreme (lidocaine)) 1 patch topical DAILY PRN linaclotide (Linzess) 290 mcg PO QAM lisinopril 10 mg PO DAILY 90 days menthol 2.5% (Icy Hot Pain Relieving) 1 appl topical BID-QID PRN metformin 1,000 mg PO BID 90 days methylcellulose (laxative) (Citrucel) 500 mg PO DAILY mirtazapine 15 mg PO BEDTIME 90 days montelukast 10 mg PO DAILY pantoprazole 40 mg PO DAILY tramadol 50 mg PO Q8H PRN tretinoin 0.1% 1 appl topical BEDTIME 30 days Ventolin HFA 90 mcg/actuation (albuterol sulfate) 2 puffs inhalation Q6H PRN 30 days NS HPI Comments Details: Anamika presents back to the office today for follow-up right lower back pain. She underwent right L4-5, L5-S1 transforaminal epidural steroid injection approximately 2 years ago which improved her pain. She states pain recently returned and she would like to repeat the injection Endorses right lower back pain with radiation leg to the foot. Endorses burning of the right lower extremity Denies red flag symptoms including new loss of bowel, bladder or saddle anesthesia Patient has previously completed PT without improvement. She currently continues home exercise program as guided by PT without improvement of her pain She has tried heat, ice, tramadol, Aleve, lidocaine patches, bracing and Tylenol Arthritis without resolution of her symptoms 04/10/[address] Head Anamika is back in my office to discuss the results of right L4-5 and L5-S1 transforaminal epidural steroid injection on 04/10/2022. She reports 2 days of complete pain improvement. One hundred % pain relief. After that the pain came back however it never become as strong as it was before the injection. She reports obtain now 70% of pain improvement, better mobility better social interactions better activities of daily living. I discussed the results of the injections with her. I can repeat her injections if her pain will come back in the interval of the 3 month before the injections. So she will be eligible for injection after July 10 if she desires to. Prior: complains on pain in the projection of the lower right buttock radiating down right lower extremity all the way to her foot.? She reports that this pain is aggravated when she is sitting, she reports the aggravation of the pain when she is in bed on the right side she has to be on the left side.? She reports that walking alleviates her pain.? Valsalva maneuver, coughing and sneezing, straining down all aggravate her pain. ?On physical exam her symptoms were suggestive of sacroiliitis, however when I performed diagnostic right sacroiliac joint injection it did not alleviate her pain at all..? She denies any weakness or numbness in the right lower extremity denies any weakness on numbness anywhere else.? S ?She reports minimal pain relief from physical therapy however this pain relieve is short leave no more than 1 and half to 2 hours.? She cannot afford to go for physical therapy.? She reports that she still owes them money for the previous sessions of physical therapy. [facility] Medical History Osteoarthritis Sacroiliitis Right sided sciatica Left sciatic nerve pain History of cocaine use Tubular adenoma Asthma Diabetes 1.5, managed as type 2 Chronic idiopathic constipation GERD (gastroesophageal reflux disease) Surgical History Hx of section History of repair of hiatal hernia Hx of laparoscopic gastric banding Hx of esophagogastroduodenoscopy Hx of colonoscopy Family History Father Prostate CA Cancer of back Mother Diabetes 1.5, managed as type 2 CVD (cardiovascular disease) Social History Household Members: Other Household Members Other:: grandson Housing: House Alcohol intake: former Patient Tobacco Use Status: Current everyday Tobacco user Tobacco use type: Cigarette Cigarettes Per Day: 4 Years Smoked: 16 e-Cigarette/Vaping Use: Never Used Second Hand Smoke Exposure: No service: No Current occupational status: employed Current occupational exposures/hazards: No Sexual orientation: Straight/Heterosexual Gender identity: Female Cognitive needs: No Hearing needs: No Vision needs: Yes (reading glasses) Review of Systems Const All systems reviewed & are unremarkable except as noted in HPI and below Physical Exam Vital Signs: Last Vital Signs Pulse 86 03/18/24 15:30 BP 126/71 03/18/24 15:30 Pulse Ox 98 03/18/24 15:30 Oxygen Delivery Method Room Air 03/18/24 15:30 BMI result Body Mass Index 36.9 General: awake, alert, oriented. Answers questions appropriately. Fully engaged in examination. Skin: warm, dry, intact HEENT: Normocephalic. Hearing intact. Cardiac: External chest normal in appearance. Respiratory: No cough, audible wheezing or stridor. Abdomen: without gross distension. MS: No obvious swelling or deformities. Able to stand on bilateral tiptoes and bilateral heels.? Able to transition from sit to stand unassisted. Ambulates with bilaterally normal heel strike and toe off SLR positive in the right Minimally tender over midline lumbar vertebrae and lumbar paraspinal muscles Nontender for bilateral PSIS Bilateral lower extremity strength 5/5 Lumbar spine range of motion intact Neurological: Oriented to person, place, time and situation. Thought process intact. No gait abnormalities appreciated. Psychiatric: Appropriate mood and affect. Good judgment and insight. Results Reviewed Results Reviewed: MRI lumbar spine 02/21/2022. Graph findings: Vertebral bodies and paraspinal structures: The marrow signal is within normal limits. There are no compression fractures or subluxation. Mildly reduced intradiscal signal is evident at L5-S1 level. The paraspinal soft tissues appear normal. Small right renal cysts noted for which no imaging follow-up is indicated. The visualization bony pelvis appears normal. Conus medullaris and cauda equina: Normal terminating at the level of L1. No lower cord signal abnormalities seen. The cauda equina nerve roots are normal. Spinal level: L1-L2, L2-L3, L3-L4: Well-hydrated normal appearance of the disc without central canal stenosis or foraminal narrowing [id number] left-sided facet arthropathy at the L3-L4 level. L4-5: Mild disc bulge and facet arthropathy without central canal stenosis. Bulging disc results in mild left foraminal narrowing. Broad-based right posterior lateral disc protrusion with moderate right foraminal encroachment mildly impresses upon the exiting right L4 nerve root. L5-S1: Disc degeneration and right subarticular zone disc protrusion impinges upon the right S1 nerve root. Mild facet arthropathy without central canal stenosis. Mild foraminal narrowing. Assessment & Plan Assessment & Plan (1) Radiculopathy, lumbar region: Code(s): M54.16 - Radiculopathy, lumbar region Category: Medical Plan No repeat MRI lumbar spine to out worsening nerve root compression. Continue with conservative measures including home exercise program, Aleve, Tylenol topical applications Pending MRI will plan for repeat right L4-5/L5-S1 transforaminal epidural steroid injection with local anesthetic All questions and concerns were answered, patient agrees with plan. Follow up after MRI, sooner if needed Orders: Orders MR lumbar spine wo con Today M54.16 - Radiculopathy, lumbar region Coding Level of Care Code Est Pt Level 3 (18808) Complex EM visit Add On G2211 Diagnoses Radiculopathy, lumbar region M54.16
== END 2024-03-18 15:51 | disposition home or self-care (01) ==
PROVIDERS: PCP Internal Medicine; Visit Provider Registered Nurse Emergency
DX: M54.16 Radiculopathy, lumbar region (principal)
CPT/HCPCS: 99213

== ENCOUNTER → 2024-03-18 15:04 | Outpatient (BNVA) | payer OTHER, SELFPAY | PROVIDERS: PCP Internal Medicine; Visit Provider Registered Nurse Emergency ==

== ENCOUNTER 2024-03-30 15:37 | Outpatient (REF) | payer OTHER, SELFPAY ==
[2024-04-02 14:04] LABS: Transglutaminase Ab IgG <1.0 U/mL; Transglutaminase IgA <1.0 U/mL
== END 2024-03-30 15:38 | disposition home or self-care (01) ==
LOC: HO.LAB 15:37
PROVIDERS: PCP Internal Medicine; Visit Provider Nurse Practitioner Family
DX: R10.9 Unspecified abdominal pain (principal)
CPT/HCPCS: 36415; 86364

== ENCOUNTER 2024-03-30 15:37 | Outpatient (AMB) | payer OTHER, SELFPAY ==
--- NOTE | 2024-03-30 15:43 | MHC.OFFVIS ---
Vital Signs 03/30/24 15:48 Height 5 ft 2 in Weight 204 lb 9.423 oz BMI 37.4 BP 125/66 Blood Pressure Location Rt brachial Position Sitting Pulse 88 Pulse Source Pulse Oximeter Pulse Oximetry (%) 96 Oxygen Delivery Method Room Air Intake Visit Reasons: S/P [place]; Dr. Treviño Intake Note: Anamika presents in office today for a scheduled s/p FUV. CC; Pt denies any complications or new concerns post op. Pt is here to discuss the results of their procedure. Pt denies the need for any medication refills at this time. 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 Treviño: Details: LAST VISIT: Chronic idiopathic constipation GERD (gastroesophageal reflux disease) Tubular adenoma Screen for colon cancer Plan Patient will be book for upper endoscopy and colonoscopy. What to expect before during and after procedure discussed with patient. Patient will continue pantoprazole in the morning and famotidine at bedtime. Avoid dietary triggers. Upper endoscopy to rule out gastritis, esophagitis, duodenitis, gastric or peptic ulcers, Castanon's, H pylori. Continue Linzess daily. Discussed with patient the importance of good bowel prep and clear liquid diet day before procedure. I will see patient after the procedure, sooner on as needed basis. She is agreeable to this plan and verbalizes understanding of instructions. She was given the opportunity to ask questions and all questions answered. ? Thank you for allowing me to participate in her care UPPER ENDOSCOPY AND COLONOSCOPY EGD Findings:? Esophagus:? Normal esophageal mucosa was noted. The Z-line was at 37 cm. Cold forceps biopsies were taken from lower esophagus to evaluate for histological signs of GERD. Stomach:? Normal gastric mucosa. Retroflexion was performed in the cardia. Random cold forceps biopsies were taken from the stomach to rule out H pylori. Duodenum:? 1 normal duodenal mucosa. Cold forceps biopsies were taken from the duodenal bulb and 2nd portion of the duodenum to rule out celiac sprue. Colonoscopy Procedure:? The patient was then turned for the colonoscopy. A digital rectal exam was performed which was normal.? A distal attachment cap was affixed to the tip of the scope and the colonoscope was then inserted through the anus and advanced through the colon and advanced to the cecum at 70 cm.? Appendiceal orifice and ileocecal valve were identified. Mucosa was carefully examined under high definition white light as the instrument was slowly withdrawn in a retrograde panoramic fashion. Retroflexion was performed in ascending colon and rectum. The procedure was somewhat difficult and required a LLQ lift to intubate the cecum. The quality of the prep was BBPS: 2+2+2 = adequate Withdrawal time 11 minutes Limitations: No limitations Findings: Mucosa: Normal colon mucosa. Protruding lesions: 1 sessile polyp of size 2 mm noted in the descending colon. Cold snare polypectomy was performed. The polyp was removed and retrieved. Large internal hemorrhoids without stigmata of recent bleeding. Impression: 1. Normal esophagus (biopsy) 2. Normal stomach (biopsy) 3. Normal duodenal (biopsy) 4. One polyp removed from the colon 5. Internal hemorrhoids Recommendations:?? Follow-up path results Avoid NSAIDs If colon polyp is an adenoma, recommend repeat colo in 5 years due prep. PATHOLOGY RESULTS Diagnosis A. Duodenum, biopsy: Duodenal mucosa with preserved villous architecture and patchy increased intraepithelial lymphocytes (see comment). B. Stomach, random, biopsy: Gastric body mucosa within normal limits; negative for Helicobacter pylori, intestinal metaplasia and dysplasia. C. Esophagus, lower, biopsy: Squamous mucosa within normal limits; negative for inflammation (including intraepithelial eosinophils), fungal organisms, intestinal metaplasia and dysplasia. D. Colon, descending, polypectomy: Tubular adenoma; negative for high-grade dysplasia. COMMENT (A): These findings raise the possibility of celiac disease; however other pathologic processes, including H. pylori gastritis, peptic duodenitis, food allergies other than celiac disease, tropical sprue, viral enteritis, injury caused by drugs, autoimmune enteropathy, immunodeficiencies and Crohn?s disease can induce intraepithelial lymphocytosis with or without associated architectural changes. In many cases no definite cause is identified. Clinical and serological correlation is recommended. TODAY'S VISIT Patient is here today for follow up and to discuss upper endoscopy and colonoscopy results. Patient denies any ill effects from the prep, anesthesia or procedure itself. Patient reports to be feeling well. Takes Linzess daily and is moving her bowels well. Patient is taking famotidine at bedtime and pantoprazole in the morning and her symptoms of acid reflux are suppressed. Upper endoscopy showed duodenal patchy increased intraepithelial lymphocytes, preserved villous architecture. Patient denies any postprandial abdominal pain. No issues when eating gluten. Patient denies dyspepsia, dysphagia or odynophagia. Denies melena, hematochezia. Tubular adenoma found, suboptimal prep and colonoscopy was recommended to be repeated in 5 years. Patient denies any GI concerning symptoms today. TODAY'S VISIT: FORMERLY [facility], [facility] Medical History Osteoarthritis Sacroiliitis Right sided sciatica Left sciatic nerve pain History of cocaine use Tubular adenoma Asthma Diabetes 1.5, managed as type 2 Chronic idiopathic constipation GERD (gastroesophageal reflux disease) Surgical History Hx of section History of repair of hiatal hernia Hx of laparoscopic gastric banding Hx of esophagogastroduodenoscopy Hx of colonoscopy Family History Father Prostate CA Cancer of back Mother Diabetes 1.5, managed as type 2 CVD (cardiovascular disease) Social History Household Members: Other Household Members Other:: grandson Housing: House Alcohol intake: former Patient Tobacco Use Status: Current everyday Tobacco user Tobacco use type: Cigarette Cigarettes Per Day: 4 Years Smoked: 16 e-Cigarette/Vaping Use: Never Used Second Hand Smoke Exposure: No service: No Current occupational status: employed Current occupational exposures/hazards: No Sexual orientation: Straight/Heterosexual Gender identity: Female Cognitive needs: No Hearing needs: No Vision needs: Yes (reading glasses) Review of Systems Const Denies weight gain and Denies weight loss ENT Reports no additional complaints, Denies dysphagia and Denies odynophagia Card Reports no additional complaints Resp Reports no additional complaints GI Denies abdominal pain, Denies belching, Denies melena, Denies bloating, Denies change in bowel habits, Denies dysphagia, Denies excessive flatus, Denies dyspepsia, Denies heartburn, Denies diarrhea, Denies loose stools, Denies nausea, Denies odynophagia and Denies vomiting Musc Reports no additional complaints Neuro Reports no additional complaints Psych Reports no additional complaints Endo Reports no additional complaints Physical Exam Vital Signs: Last Vital Signs Pulse 88 03/30/24 15:48 BP 125/66 03/30/24 15:48 Pulse Ox 96 03/30/24 15:48 Oxygen Delivery Method Room Air 03/30/24 15:48 BMI result Body Mass Index 37.4 Const General: healthy appearing, no acute distress and well developed Nutritional Appearance: obese Orientation/consciousness: patient oriented x3 Resp Effort & Inspection: normal respiratory effort, able to speak in complete sentences, no tracheal deviation and symmetric chest movement Auscultation: clear to auscultation bilaterally Cardio Rate: regular rate GI Inspection: Yes normal to inspection, No distended and Yes obesity Palpation (GI): Soft to palpation, not firm, nontender and No hepatosplenomegaly present Auscultation: normal bowel sounds General: Yes no CVA tenderness Back/Spine/Pelvis Back: no CVA tenderness Skin General skin exam: elasticity normal, turgor normal and dry skin Neuro General: patient oriented x3 Psych Appearance: grossly normal Mental Status: mental status grossly normal Speech and movement: Normal speech and movement present Assessment & Plan Assessment & Plan (1) Tubular adenoma: Code(s): D36.9 - Benign neoplasm, unspecified site Category: Medical (2) Chronic idiopathic constipation: Code(s): K59.04 - Chronic idiopathic constipation Category: Medical (3) GERD (gastroesophageal reflux disease): Code(s): K21.9 - Gastro-esophageal reflux disease without esophagitis Category: Medical Qualifiers: Esophagitis presence: esophagitis presence not specified Qualified Code(s): K21.9 - Gastro-esophageal reflux disease without esophagitis Plan Continue pantoprazole daily and famotidine at bedtime. Avoid dietary triggers and late night snacking. Staying upright for minimum 3 hours after meals discussed with patient. Patient will continue taking Linzess daily. Increase fluid intake and activity to promote better bowel motility. Colonoscopy in 5 years, sooner if clinically necessary. Upper endoscopy showed duodenal changes will send patient to check transglutaminase. No issues with gluten per patient. No family history of celiac disease. Negative H pylori on biopsy. Follow-up in 6 months, sooner on as needed basis. Patient is agreeable to this plan and verbalizes understanding of instructions. She was given the opportunity to ask questions and all questions answered. Thank you for allowing me to participate in her care Orders: Orders Transglutaminase Ab IgG Today R10.9 - Unspecified abdominal pain Transglutaminase IgA Today R10.9 - Unspecified abdominal pain Medications: Refilled famotidine (Pepcid) 20 mg PO BEDTIME PRN 90 tabs 2RF acid reflux K21.9 - Gastro-esophageal reflux disease without esophagitis Coding Level of Care Code Est Pt Level 3 (75274) Diagnoses Tubular adenoma D36.9 Chronic idiopathic constipation K59.04 Gastroesophageal reflux disease, unspecified whether esophagitis present K21.9 Esophagitis presence: esophagitis presence not specified Time Spent (min) 25 Comment 15 minutes spent with patient and additional 10 minutes spent reviewing her records
[2024-03-30 15:48] VITALS: BP 125/66; PULSE 88; O2SAT 96; BMI 37.4
== END 2024-03-30 16:04 | disposition home or self-care (01) ==
PROVIDERS: PCP Internal Medicine; Visit Provider Nurse Practitioner Family
DX: D36.9 Benign neoplasm, unspecified site (principal); K59.04 Chronic idiopathic constipation; K21.9 Gastro-esophageal reflux disease without esophagitis
CPT/HCPCS: 99213

== ENCOUNTER 2024-04-02 15:29 | Outpatient (AMB) | payer OTHER, SELFPAY ==
--- NOTE | 2024-04-02 15:36 | MHC.OFFVIS ---
Vital Signs 04/02/24 15:37 Height 5 ft 2 in Weight 204 lb 5.896 oz BMI 37.4 BP 128/72 Blood Pressure Location Lt brachial Position Sitting Pulse 91 Pulse Source Pulse Oximeter Pulse Oximetry (%) 97 Oxygen Delivery Method Room Air Intake Visit Reasons: lbp Intake Note: Patient last seen by Doctor Gabriele Hernández on 09/18/23. Presents today for lbp follow up and XR's results. Patient states she is still in pain, still in pain, can't get her comfort Zone. Allergies buprenorphine [From Butrans] Allergy (Intermediate, Verified 04/02/24 15:46) Rash naproxen [NAPROXEN] Allergy (Intermediate, Verified 04/02/24 15:46) CHEST TIGHTNESS, vomiting Medication List - Last Reconciled 04/02/24 by Gabriele Hernández MD acetaminophen ER 650 mg PO Q8H PRN alendronate 70 mg PO QWEEK atorvastatin 10 mg PO BEDTIME 90 days baclofen 20 mg PO BID PRN NS citalopram 40 mg PO DAILY 90 days famotidine (Pepcid) 20 mg PO BEDTIME PRN gabapentin 300 mg PO BEDTIME hydroquinone 4% 1 appl topical DAILY 30 days lactobacillus combination no.4 (Probiotic) 3,000 mmu cells PO DAILY lidocaine 4% (Aspercreme (lidocaine)) 1 patch topical DAILY PRN linaclotide (Linzess) 290 mcg PO QAM lisinopril 10 mg PO DAILY 90 days menthol 2.5% (Icy Hot Pain Relieving) 1 appl topical BID-QID PRN metformin 1,000 mg PO BID 90 days methylcellulose (laxative) (Citrucel) 500 mg PO DAILY mirtazapine 15 mg PO BEDTIME 90 days montelukast 10 mg PO DAILY pantoprazole 40 mg PO DAILY tramadol 50 mg PO Q8H PRN tretinoin 0.1% 1 appl topical BEDTIME 30 days Ventolin HFA 90 mcg/actuation (albuterol sulfate) 2 puffs inhalation Q6H PRN 30 days NS HPI Comments Details: This is a 58-year-old female with past medical history lumbar radiculopathy, sciatica who presents for follow-up. She continues to have syndrome mid back pain that is more severe at night. She was recently evaluated by pain management and an MRI of her L-spine was ordered. Due to point tenderness in her spine, I had ordered thoracic and L-spine x-rays which were negative. She was recently diagnosed with osteoporosis and started on alendronate she has been taking it for the last 2-3 months. It is well tolerated FORMERLY [facility] Medical History Osteoarthritis Sacroiliitis Right sided sciatica Left sciatic nerve pain History of cocaine use Tubular adenoma Asthma Diabetes 1.5, managed as type 2 Chronic idiopathic constipation GERD (gastroesophageal reflux disease) Surgical History Hx of section History of repair of hiatal hernia Hx of laparoscopic gastric banding Hx of esophagogastroduodenoscopy Hx of colonoscopy Family History Father Prostate CA Cancer of back Mother Diabetes 1.5, managed as type 2 CVD (cardiovascular disease) Social History Household Members: Other Household Members Other:: grandson Housing: House Alcohol intake: former Patient Tobacco Use Status: Current everyday Tobacco user Tobacco use type: Cigarette Cigarettes Per Day: 4 Years Smoked: 16 e-Cigarette/Vaping Use: Never Used Second Hand Smoke Exposure: No service: No Current occupational status: employed Current occupational exposures/hazards: No Sexual orientation: Straight/Heterosexual Gender identity: Female Cognitive needs: No Hearing needs: No Vision needs: Yes (reading glasses) Female Reproductive History Menstrual Menopause type: natural Total pregnancies: 3 Full term: 3 Number of Living Children: 3 Date of last pap smear: 03/30/16 (neg) Review of Systems [facility] [place] Physical Exam Vital Signs: Last Vital Signs Pulse 91 04/02/24 15:37 BP 128/72 04/02/24 15:37 Pulse Ox 97 04/02/24 15:37 Oxygen Delivery Method Room Air 04/02/24 15:37 BMI result Body Mass Index 37.4 Const General: cooperative, healthy appearing, comfortable and no acute distress Nutritional Appearance: obese Orientation/consciousness: patient oriented x3 Limitations: no limitations HEENT Head: Yes normocephalic and Yes atraumatic Resp Effort & Inspection: normal respiratory effort and able to speak in complete sentences Neuro General: patient oriented x3 Extrem Other: Negative straight leg raise test bilaterally today Lower thoracic/upper lumbar vertebral tenderness to palpation. Results Reviewed Results Reviewed: MRI lumbar spine 02/21/2022. Graph findings: Vertebral bodies and paraspinal structures: The marrow signal is within normal limits. There are no compression fractures or subluxation. Mildly reduced intradiscal signal is evident at L5-S1 level. The paraspinal soft tissues appear normal. Small right renal cysts noted for which no imaging follow-up is indicated. The visualization bony pelvis appears normal. Conus medullaris and cauda equina: Normal terminating at the level of L1. No lower cord signal abnormalities seen. The cauda equina nerve roots are normal. Spinal level: L1-L2, L2-L3, L3-L4: Well-hydrated normal appearance of the disc without central canal stenosis or foraminal narrowing [id number] left-sided facet arthropathy at the L3-L4 level. L4-5: Mild disc bulge and facet arthropathy without central canal stenosis. Bulging disc results in mild left foraminal narrowing. Broad-based right posterior lateral disc protrusion with moderate right foraminal encroachment mildly impresses upon the exiting right L4 nerve root. L5-S1: Disc degeneration and right subarticular zone disc protrusion impinges upon the right S1 nerve root. Mild facet arthropathy without central canal stenosis. Mild foraminal narrowing. Assessment & Plan Assessment & Plan (1) Low back pain, unspecified: Code(s): M54.50 - Low back pain, unspecified Category: Medical Qualifiers: Chronicity: unspecified Back pain laterality: midline Sciatica presence: without sciatica Qualified Code(s): M54.50 - Low back pain, unspecified Plan: Recently evaluated by pain management and MRI L-spine was ordered. Continue to follow-up with pain management. (2) Encounter for medication monitoring: Comment: tramadol pain contract renewed 10/11/2022 Code(s): Z51.81 - Encounter for therapeutic drug level monitoring Category: Medical (3) Lumbosacral radiculopathy due to degenerative joint disease of spine: Code(s): M47.27 - Other spondylosis with radiculopathy, lumbosacral region Category: Medical Plan: Managing pain with Tylenol gabapentin and tramadol 50 mg t.i.d.. Patient has been stable on this dose with no side effects. Continue with tramadol 50 mg t.i.d. (4) Osteoporosis: Code(s): M81.0 - Age-related osteoporosis without current pathological fracture Category: Medical Qualifiers: Osteoporosis type: age-related Presence of current pathological fracture: without current pathological fracture Qualified Code(s): M81.0 - Age-related osteoporosis without current pathological fracture Plan: Patient had her menopause in her early 40s. Smoker. Discussed osteoporosis and its management. Continue with alendronate 70 mg once weekly. Discussed alendronate precautions. Will check blood work to rule out secondary causes of osteoporosis Follow-up in 3 months Plan I spent 27 minutes reviewing patient's chart, evaluating patient, ordering diagnostic workup, counseling patient and documenting in the chart Orders: Orders Collagen Type I C-Telopeptide Today M81.0 - Age-related osteoporosis without current pathological fracture Comprehensive Met. Panel Today M81.0 - Age-related osteoporosis without current pathological fracture Protein Electrophoresis, Serum Today M81.0 - Age-related osteoporosis without current pathological fracture Phosphorus Today M81.0 - Age-related osteoporosis without current pathological fracture Parathyroid Hormone Intact Today M81.0 - Age-related osteoporosis without current pathological fracture TSH reflex Free T4 Today M81.0 - Age-related osteoporosis without current pathological fracture Vitamin D 25-OH (D2 and D3) Today Z13.21 - Encounter for screening for nutritional disorder Medications: Changed From alendronate 70 mg PO QWEEK To alendronate Take 1 tab once weekly, 1st thing in the morning, on an empty stomach, with a large glass of water (at least 6 oz) and stay upright for 30 minutes 70 mg PO QWEEK 12 tabs 1RF Refilled tramadol 50 mg PO Q8H PRN 90 tabs 3RF pain M47.27 - Other spondylosis with radiculopathy, lumbosacral region Coding Level of Care Code Est Pt Level 4 (66026) Diagnoses Midline low back pain without sciatica, unspecified chronicity M54.50 Chronicity: unspecified Back pain laterality: midline Sciatica presence: without sciatica Encounter for medication monitoring Z51.81 Lumbosacral radiculopathy due to degenerative joint disease of spine M47.27 Age-related osteoporosis without current pathological fracture M81.0 Osteoporosis type: age-related Presence of current pathological fracture: without current pathological fracture
[2024-04-02 15:37] VITALS: BP 128/72; PULSE 91; O2SAT 97; BMI 37.4
== END 2024-04-02 16:09 | disposition home or self-care (01) ==
PROVIDERS: PCP Internal Medicine; Visit Provider Student in an Organized Health Care Education/Training Program
DX: M54.50 Low back pain, unspecified (principal); Z51.81 Encounter for therapeutic drug level monitoring; M47.27 Other spondylosis with radiculopathy, lumbosacral region; M81.0 Age-related osteoporosis without current pathological fracture
CPT/HCPCS: 99214

== ENCOUNTER → 2024-04-02 15:29 | Outpatient (BNVA) | payer OTHER, SELFPAY | PROVIDERS: PCP Internal Medicine; Visit Provider Student in an Organized Health Care Education/Training Program ==

== ENCOUNTER → 2024-04-13 17:44 | Outpatient (BNV) | payer OTHER, SELFPAY | PROVIDERS: PCP Internal Medicine; Visit Provider Radiology Diagnostic Radiology | DX: M54.50 Low back pain, unspecified (principal) | CPT/HCPCS: 72148 ==

== ENCOUNTER 2024-04-13 17:45 | Outpatient (REF) | payer OTHER, SELFPAY ==
--- NOTE | ~2024-04-13 | MR_ITS ---
EXAMINATION: MR LUMBAR SPINE WITHOUT CONTRAST CLINICAL INFORMATION: Low back pain radiating to right lower extremity. COMPARISON: MRI dated February 21, 2022. TECHNIQUE: MRI of the lumbar spine was obtained using routine sequences without contrast. FINDINGS: Submitted for interpretation on May 12, 2024. Last rib-bearing vertebra labeled T12. Prominent epidural fat, L5-S1. No bone marrow STIR signal abnormality. Multilevel disc desiccation more conspicuous at L5-S1. Focal hyperintense T2 signal in the posterior intervertebral disc L5-S1 likely annular fissure. Bone marrow inhomogeneity. Conus medullaris ends at superior endplate of L1 with normal signal. T12-L1: No compression upon neural elements. L1-2: No compression upon neural elements. L2-3: No compression upon neural elements. L3-4: Broad-based disc bulging. Facet joint and ligamentum flavum hypertrophy. Reduced AP diameter of the thecal sac and the neural foramina. L4-5: Broad-based disc bulging. Facet joint and ligamentum flavum hypertrophy. Reduced AP diameter of the thecal sac and bilateral neuroforamina narrowing likely encroaching the neural elements. L5-S1: Central and right subarticular broad-based disc herniation encroaching the right S1 nerve root. Facet joint hypertrophy resulting in bilateral neuroforamina narrowing. No prevertebral compartment hematoma, mass or fluid collection. MR/MR lumbar spine wo con IMPRESSION: Central and right subarticular broad-based disc herniation L5-S1 encroaching right S1 nerve root. Multilevel lumbar spondylosis, L3-4, 2 L4-5 encroaching neural elements thecal sac at L4-5 level Electronically signed by: Gabriel Okeefe MD 05/12/2024 01:19 PM EDT
== END 2024-04-13 17:46 | disposition home or self-care (01) ==
LOC: HO.MRI 17:45
PROVIDERS: PCP Internal Medicine; Visit Provider Registered Nurse Emergency
DX: M54.16 Radiculopathy, lumbar region (principal)
CPT/HCPCS: 72148

== ENCOUNTER 2024-05-21 15:10 | Outpatient (AMB) | payer OTHER, SELFPAY ==
[2024-05-21 15:21] VITALS: BP 131/63; PULSE 93; O2SAT 97; BMI 37.9
--- NOTE | 2024-05-21 15:21 | MHC.OFFVIS ---
Vital Signs 05/21/24 15:21 Height 5 ft 2 in Weight 207 lb BMI 37.9 BP 131/63 Blood Pressure Location Rt brachial Position Sitting Pulse 93 Pulse Source Pulse Oximeter Pulse Oximetry (%) 97 Oxygen Delivery Method Room Air Intake Visit Reasons: MRI results Allergies buprenorphine [From Butrans] Allergy (Intermediate, Verified 05/21/24 15:22) Rash naproxen [NAPROXEN] Allergy (Intermediate, Verified 05/21/24 15:22) CHEST TIGHTNESS, vomiting Medication List - Last Reconciled 05/21/24 by Regina Zayas acetaminophen ER 650 mg PO Q8H PRN alendronate 70 mg PO QWEEK atorvastatin 10 mg PO BEDTIME 90 days baclofen 20 mg PO BID PRN NS citalopram 40 mg PO DAILY 90 days famotidine (Pepcid) 20 mg PO BEDTIME PRN gabapentin 300 mg PO BEDTIME hydroquinone 4% 1 appl topical DAILY 30 days lactobacillus combination no.4 (Probiotic) 3,000 mmu cells PO DAILY lidocaine 4% (Aspercreme (lidocaine)) 1 patch topical DAILY PRN linaclotide (Linzess) 290 mcg PO QAM lisinopril 10 mg PO DAILY 90 days menthol 2.5% (Icy Hot Pain Relieving) 1 appl topical BID-QID PRN metformin 1,000 mg PO BID 90 days methylcellulose (laxative) (Citrucel) 500 mg PO DAILY mirtazapine 15 mg PO BEDTIME 90 days montelukast 10 mg PO DAILY pantoprazole 40 mg PO DAILY tramadol 50 mg PO Q8H PRN tretinoin 0.1% 1 appl topical BEDTIME 30 days Ventolin HFA 90 mcg/actuation (albuterol sulfate) 2 puffs inhalation Q6H PRN 30 days NS HPI Comments Details: Patient presents back to the office today for follow-up, review of recent MRI MRI reviewed, results as per below Patient has previously completed physical therapy with no improvement. She does daily home exercise program as guided by PT on discharge but pain persists. No improvement with heat, ice, prescription medications, topical medications, Tylenol and nonsteroidal anti-inflammatory medications. She had 70% improvement with previous epidural steroid injection, she would like to repeat. Prior: Anamika presents back to the office today for follow-up right lower back pain. She underwent right L4-5, L5-S1 transforaminal epidural steroid injection approximately 2 years ago which improved her pain. She states pain recently returned and she would like to repeat the injection Endorses right lower back pain with radiation leg to the foot. Endorses burning of the right lower extremity Denies red flag symptoms including new loss of bowel, bladder or saddle anesthesia Patient has previously completed PT without improvement. She currently continues home exercise program as guided by PT without improvement of her pain She has tried heat, ice, tramadol, Aleve, lidocaine patches, bracing and Tylenol Arthritis without resolution of her symptoms 04/10/[address] Head Anamika is back in my office to discuss the results of right L4-5 and L5-S1 transforaminal epidural steroid injection on 04/10/2022. She reports 2 days of complete pain improvement. One hundred % pain relief. After that the pain came back however it never become as strong as it was before the injection. She reports obtain now 70% of pain improvement, better mobility better social interactions better activities of daily living. I discussed the results of the injections with her. I can repeat her injections if her pain will come back in the interval of the 3 month before the injections. So she will be eligible for injection after July 10 if she desires to. Prior: complains on pain in the projection of the lower right buttock radiating down right lower extremity all the way to her foot.? She reports that this pain is aggravated when she is sitting, she reports the aggravation of the pain when she is in bed on the right side she has to be on the left side.? She reports that walking alleviates her pain.? Valsalva maneuver, coughing and sneezing, straining down all aggravate her pain. ?On physical exam her symptoms were suggestive of sacroiliitis, however when I performed diagnostic right sacroiliac joint injection it did not alleviate her pain at all..? She denies any weakness or numbness in the right lower extremity denies any weakness on numbness anywhere else.? S ?She reports minimal pain relief from physical therapy however this pain relieve is short leave no more than 1 and half to 2 hours.? She cannot afford to go for physical therapy.? She reports that she still owes them money for the previous sessions of physical therapy. [facility] Medical History Osteoarthritis Sacroiliitis Right sided sciatica Left sciatic nerve pain History of cocaine use Tubular adenoma Asthma Diabetes 1.5, managed as type 2 Chronic idiopathic constipation GERD (gastroesophageal reflux disease) Surgical History Hx of section History of repair of hiatal hernia Hx of laparoscopic gastric banding Hx of esophagogastroduodenoscopy Hx of colonoscopy Family History Father Prostate CA Cancer of back Mother Diabetes 1.5, managed as type 2 CVD (cardiovascular disease) Social History Household Members: Other Household Members Other:: grandson Housing: House Alcohol intake: former Patient Tobacco Use Status: Current everyday Tobacco user Tobacco use type: Cigarette Cigarettes Per Day: 4 Years Smoked: 16 e-Cigarette/Vaping Use: Never Used Second Hand Smoke Exposure: No service: No Current occupational status: employed Current occupational exposures/hazards: No Sexual orientation: Straight/Heterosexual Gender identity: Female Cognitive needs: No Hearing needs: No Vision needs: Yes (reading glasses) Review of Systems Const All systems reviewed & are unremarkable except as noted in HPI and below Physical Exam Vital Signs: Last Vital Signs Pulse 93 05/21/24 15:21 BP 131/63 05/21/24 15:21 Pulse Ox 97 05/21/24 15:21 Oxygen Delivery Method Room Air 05/21/24 15:21 BMI result Body Mass Index 37.9 General: awake, alert, oriented. Answers questions appropriately. Fully engaged in examination. Skin: warm, dry, intact HEENT: Normocephalic. Hearing intact. Cardiac: External chest normal in appearance. Respiratory: No cough, audible wheezing or stridor. Abdomen: without gross distension. MS: No obvious swelling or deformities. Able to stand on bilateral tiptoes and bilateral heels.? Able to transition from sit to stand unassisted. Ambulates with bilaterally normal heel strike and toe off SLR positive in the right Bilateral lower extremity strength 5/5 Neurological: Oriented to person, place, time and situation. Thought process intact. No gait abnormalities appreciated. Psychiatric: Appropriate mood and affect. Good judgment and insight. Results Reviewed Results Reviewed: 03/2024 MR [place] FINDINGS: Submitted for interpretation on May 12, 2024. Last rib-bearing vertebra labeled T12. Prominent epidural fat, L5-S1. No bone marrow STIR signal abnormality. Multilevel disc desiccation more conspicuous at L5-S1. Focal hyperintense T2 signal in the posterior intervertebral disc L5-S1 likely annular fissure. Bone marrow inhomogeneity. Conus medullaris ends at superior endplate of L1 with normal signal. T12-L1: No compression upon neural elements. L1-2: No compression upon neural elements. L2-3: No compression upon neural elements. L3-4: Broad-based disc bulging. Facet joint and ligamentum flavum hypertrophy. Reduced AP diameter of the thecal sac and the neural foramina. L4-5: Broad-based disc bulging. Facet joint and ligamentum flavum hypertrophy. Reduced AP diameter of the thecal sac and bilateral neuroforamina narrowing likely encroaching the neural elements. L5-S1: Central and right subarticular broad-based disc herniation encroaching the right S1 nerve root. Facet joint hypertrophy resulting in bilateral neuroforamina narrowing. No prevertebral compartment hematoma, mass or fluid collection. IMPRESSION: Central and right subarticular broad-based disc herniation L5-S1 encroaching right S1 nerve root. Multilevel lumbar spondylosis, L3-4, 2 L4-5 encroaching neural elements thecal sac at L4-5 level MRI lumbar spine 02/21/2022. Graph findings: Vertebral bodies and paraspinal structures: The marrow signal is within normal limits. There are no compression fractures or subluxation. Mildly reduced intradiscal signal is evident at L5-S1 level. The paraspinal soft tissues appear normal. Small right renal cysts noted for which no imaging follow-up is indicated. The visualization bony pelvis appears normal. Conus medullaris and cauda equina: Normal terminating at the level of L1. No lower cord signal abnormalities seen. The cauda equina nerve roots are normal. Spinal level: L1-L2, L2-L3, L3-L4: Well-hydrated normal appearance of the disc without central canal stenosis or foraminal narrowing [id number] left-sided facet arthropathy at the L3-L4 level. L4-5: Mild disc bulge and facet arthropathy without central canal stenosis. Bulging disc results in mild left foraminal narrowing. Broad-based right posterior lateral disc protrusion with moderate right foraminal encroachment mildly impresses upon the exiting right L4 nerve root. L5-S1: Disc degeneration and right subarticular zone disc protrusion impinges upon the right S1 nerve root. Mild facet arthropathy without central canal stenosis. Mild foraminal narrowing. Assessment & Plan Assessment & Plan (1) Radiculopathy, lumbar region: Code(s): M54.16 - Radiculopathy, lumbar region Category: Medical Plan Recent MRI reviewed, results as per above Patient has exhausted conservative therapy including PT, home exercise program, nonsteroidal anti-inflammatory medications, [id number] medications, heat all without improvement of her symptoms Discussed options for treatment including diagnostic interventional testing, epidural steroid injections, peripheral nerve stimulation with Sprint, RFA and more permanent neuromodulation. Will schedule for repeat right L4-5/L5-S1 transforaminal epidural steroid injection with local anesthetic under fluoroscopy guidance All questions and concerns were answered, patient agrees with plan. Follow up after injection, sooner if needed Coding Level of Care Code Est Pt Level 3 (37126) Complex EM visit Add On G2211 Diagnoses Radiculopathy, lumbar region M54.16
== END 2024-05-21 15:36 | disposition home or self-care (01) ==
LOC: HO.PMC 15:10
PROVIDERS: PCP Internal Medicine; Visit Provider Registered Nurse Emergency
DX: M54.16 Radiculopathy, lumbar region (principal)
CPT/HCPCS: 99213

== ENCOUNTER → 2024-05-21 15:10 | Outpatient (BNVA) | payer OTHER, SELFPAY | PROVIDERS: PCP Internal Medicine; Visit Provider Registered Nurse Emergency ==

== ENCOUNTER 2024-05-25 16:42 | Outpatient (AMB) | payer OTHER, SELFPAY ==
--- NOTE | 2024-05-25 16:48 | A.OFFPC_ITS ---
Vital Signs 05/25/24 16:53 Height 5 ft 2 in Weight 203 lb BMI 37.1 BP 130/72 Blood Pressure Location Lt brachial Position Sitting Intake Visit Reasons: 4 month follow up Intake Note: Patient here for a 4 month follow up [employer] Loom Control Required: No Accompanied by: Self / Same As Patient Allergies buprenorphine [From Butrans] Allergy (Intermediate, Verified 05/25/24 17:01) Rash naproxen [NAPROXEN] Allergy (Intermediate, Verified 05/25/24 17:01) CHEST TIGHTNESS, vomiting Medication List - Last Reconciled 05/25/24 by Chanell Ford MD acetaminophen ER 650 mg PO Q8H PRN alendronate 70 mg PO QWEEK atorvastatin 10 mg PO BEDTIME 90 days baclofen 20 mg PO BID PRN NS citalopram 40 mg PO DAILY 90 days famotidine (Pepcid) 20 mg PO BEDTIME PRN gabapentin 300 mg PO BEDTIME hydroquinone 4% 1 appl topical DAILY 30 days lactobacillus combination no.4 (Probiotic) 3,000 mmu cells PO DAILY lidocaine 4% (Aspercreme (lidocaine)) 1 patch topical DAILY PRN linaclotide (Linzess) 290 mcg PO QAM lisinopril 10 mg PO DAILY 90 days menthol 2.5% (Icy Hot Pain Relieving) 1 appl topical BID-QID PRN metformin 1,000 mg PO BID 90 days methylcellulose (laxative) (Citrucel) 500 mg PO DAILY mirtazapine 15 mg PO BEDTIME 90 days montelukast 10 mg PO DAILY pantoprazole 40 mg PO DAILY tramadol 50 mg PO Q8H PRN tretinoin 0.1% 1 appl topical BEDTIME 30 days Ventolin HFA 90 mcg/actuation (albuterol sulfate) 2 puffs inhalation Q6H PRN 30 days NS Tobacco use date assessed: 11/19/23 Dental Screening Dental Screen Date: 11/19/23 HPI HPI Comments History of Present Illness Details This is a 58-year-old female with diabetes mellitus type 2, hyper tension, hyperlipidemia, chronic idiopathic constipation and osteoporosis from last DEXA scan that comes today for follow-up on her conditions. A1c very close to goal and I will add Ozempic to reach A1c goal. Blood pressure stable. Lipid panel will be order and her LDL goal should be less than 70. Constipation stable with Linzess. On alendronate once a week for osteoporosis which was evaluated by Rheumatology. She is obese with a BMI of 37.1 and was advised to do diet and exercise to reach BMI goal less than 30. No chest pain or shortness on breath. [facility] Medical History Osteoarthritis Sacroiliitis Right sided sciatica Left sciatic nerve pain History of cocaine use Tubular adenoma Asthma Diabetes 1.5, managed as type 2 Chronic idiopathic constipation GERD (gastroesophageal reflux disease) Surgical History Hx of section History of repair of hiatal hernia Hx of laparoscopic gastric banding Hx of esophagogastroduodenoscopy Hx of colonoscopy Family History Father Prostate CA Cancer of back Mother Diabetes 1.5, managed as type 2 CVD (cardiovascular disease) Social History Household Members: Other Household Members Other:: grandson Housing: House Alcohol intake: former Patient Tobacco Use Status: Current everyday Tobacco user Tobacco use type: Cigarette Cigarettes Per Day: 4 Years Smoked: 16 e-Cigarette/Vaping Use: Never Used Second Hand Smoke Exposure: No service: No Current occupational status: employed Current occupational exposures/hazards: No Sexual orientation: Straight/Heterosexual Gender identity: Female Cognitive needs: No Hearing needs: No Vision needs: Yes (reading glasses) Questionnaire PHQ-9 Over the last 2 weeks, how often have you been bothered by any of the following problems? 1. Little interest or pleasure in doing things: not at all 2. Feeling down, depressed, or hopeless: not at all 3. Trouble falling or staying asleep, or sleeping too much: not at all 4. Feeling tired or having little energy: not at all 5. Poor appetite or overeating: not at all 6. Feeling bad about yourself - or that you are a failure or have let yourself or your family down: not at all 7. Trouble concentrating on things, such as reading the newspaper or watching television: not at all 8. Moving or speaking so slowly that other people could have noticed. Or the opposite - being so fidgety or restless that you have been moving around a lot more than usual: not at all 9. Thoughts that you would be better off or of hurting yourself in some way: not at all Total score: 0 Depression Screening Interpretation: Negative Depression Screening Done: Yes 50486 - PHQ-9 Billing: Yes Source: Developed by Drs. Calvin Maria, Meghan Eddy, Josh Blandon and colleagues, with an educational andi from [employer]. Thrive Questionnaire Date Thrive assessed: 05/25/24 I am a: Patient What is your living situation today?: I have a steady place to live Within the past 12 months, did the food you bought not last and you didn't have the money to get more?: Never true Within the past 12 months, did you worry whether your food would run out before you got money to buy more?: Never true Do you have trouble paying for medicines?: No Do you have trouble getting transportation to medical appointments?: No Do you have trouble paying your heating and electricity bill?: No Do you have trouble taking care of your child, family member or friend?: No Do you have trouble with day-to-day activities such as bathing, preparing meals, shopping, managing finances, etc.?: No Are you currently unemployed and looking for a job?: No Are you interested in more education?: No Please select the resources that you would like help with: None Currently or been in a relationship where the following occur: No concerns reported THRIVE Score: 0 ERIKA-7 AMB Questionnaire ERIKA-7 Date ERIKA - 7 assessed: 08/08/22 Feeling nervous, anxious, or on edge: 0 = Not at all Not being able to stop or control worryin = Not at all Worrying too much about different things: 0 = Not at all Trouble relaxin = Not at all Being so restless that it is hard to sit still: 0 = Not at all Becoming easily annoyed or irritable: 0 = Not at all Feeling afraid as if something awful might happen: 0 = Not at all Total ERIKA-7 score (0-4 normal; 5-9 mild; 10-14 moderate; 15-21 severe): 0 Source: Developed by Meghan Grigsby Surjit, Josh Blandon and colleagues, with an educational andi from [employer]. ERIKA-7 Assessment Billing ERIKA-7 Assessment Tool: ERIKA-7 Assessment 71110 Review of Systems Const All systems reviewed & are unremarkable except as noted in HPI and below Card Denies chest pain at rest, Denies chest pain with activity, Denies edema, Denies irregular heart rhythm, Denies claudication, Denies dyspnea, Denies dyspnea on exertion, Denies orthopnea, Denies paroxysmal nocturnal dyspnea and Denies slow heart rate Resp Denies cough, Denies dyspnea and Denies dyspnea on exertion GI Denies abdominal pain, Denies change in bowel habits, Denies excessive flatus, Denies nausea and Denies vomiting Denies urinary incontinence, Denies urinary hesitancy and Denies urinary urgency Musc Denies atrophy, Denies deformity and Denies limited range of motion Physical exam (Primary Care) Vital Signs: Last Vital Signs BP 130/72 05/25/24 16:53 BMI result Body Mass Index 37.1 BMI Assessment/Plan discussion: High BMI High, discussed plan: lifestyle, weight reduction, dietary and physical activity Tobacco/Smoking Status: Tobacco use Status Tobacco use date assessed 11/19/23 05/25/24 16:49 Patient Tobacco Use Status Current everyday Tobacco 05/25/24 16:49 Tobacco use type Cigarette 05/25/24 16:49 e-Cigarette/Vaping Use Never Used 05/25/24 16:49 Are you ready to quit: No Tobacco cessation counseling provided: Yes Items discussed: Nicotine replacement and QuitWorks Relapse Prevention: discussed the importance of a supportive environment, discussed extending NRT, discussed negative mood or depression after quitting, weight gain after smoking is common and discussed dietary, exercise and/or lifestyle changes Number of minutes spent counselin CPT code: 39835 - 4-10 Minutes PHQ-9: PHQ-9 Score PHQ-9: Total score 0 05/25/24 17:46 Depression Screening Interpretation: Negative Thrive Assessment: Date of Thrive Assessment Date Thrive assessed 05/25/24 05/25/24 16:57 Currently or been in a relationship where the following occur: No concerns reported Resp Effort & Inspection: normal respiratory effort Auscultation: clear to auscultation bilaterally Cardio Jugular venous distension: no JVD Rate: regular rate Rhythm: regular rhythm Heart sounds: S1 normal heart sound present and S2 normal heart sound present Extrem General: Yes full ROM Results AMB Hemoglobin A1c AMB Hemoglobin A1c 7.2 % Last Edit by JB Correa on 05/25/24 17:4 7 Coding Level of Care Code Est Pt Level 4 (33892) Complex EM visit Add On G2211 Diagnoses Type 2 diabetes mellitus with hyperglycemia, without long-term current use of insulin E11.65 Diabetes mellitus type: type 2 Diabetes mellitus senior living insulin use: without metal neutralizer use Diabetes mellitus complication status: with hyperglycemia Age-related osteoporosis without current pathological fracture M81.0 Osteoporosis type: age-related Presence of current pathological fracture: without current pathological fracture Hyperlipidemia LDL goal <70 E78.5 Essential hypertension I10 Hypertension type: essential hypertension Chronic idiopathic constipation K59.04 Additional Codes PHQ-9 - 25810 - PHQ-9 Billing: Yes ([id number]) ERIKA-7 Assessment Billing - ERIKA-7 Assessment Tool: ERIKA-7 Assessment 01020 ([id number]) Vital Signs *Quality* - CPT code: 02831 - 4-10 Minutes ([id number]) Time Spent (min) 25 Assessment & Plan Assessment & Plan (1) Diabetes mellitus: Code(s): E11.9 - Type 2 diabetes mellitus without complications Category: Medical Qualifiers: Diabetes mellitus type: type 2 Diabetes mellitus metal neutralizer insulin use: without senior living use Diabetes mellitus complication status: with hyperglycemia Qualified Code(s): E11.65 - Type 2 diabetes mellitus with hyperglycemia Plan: Continue metformin. Start Ozempic. A1c goal is equal or less than 7%. (2) Osteoporosis: Code(s): M81.0 - Age-related osteoporosis without current pathological fracture Category: Medical Qualifiers: Osteoporosis type: age-related Presence of current pathological fracture: without current pathological fracture Qualified Code(s): M81.0 - Age- related osteoporosis without current pathological fracture Plan: Continue alendronate once a week. Follow-up with rheumatology. (3) Hyperlipidemia LDL goal <70: Code(s): E78.5 - Hyperlipidemia, unspecified Category: Medical Plan: Continue statins. Repeat lipid panel. LDL goal is less than 70. (4) HTN (hypertension): Code(s): I10 - Essential (primary) hypertension Category: Medical Qualifiers: Hypertension type: essential hypertension Qualified Code(s): I10 - Essential (primary) hypertension Plan: Continue lisinopril. Blood pressure goal is equal or less than 130/80. (5) Chronic idiopathic constipation: Code(s): K59.04 - Chronic idiopathic constipation Category: Medical Plan: Continue Linzess. Orders: Orders AMB Hemoglobin A1c Today E11.9 - Type 2 diabetes mellitus without complications Comprehensive [place]. Panel Fast 4 Months E11.9 - Type 2 diabetes mellitus without complications Lipid Panel 4 Months E78.5 - Hyperlipidemia, unspecified Microalbumin, Random (w Creat) 4 Months R80.9 - Proteinuria, unspecified Vitamin D 25-OH Total 4 Months E55.9 - Vitamin D deficiency, unspecified Medications: New semaglutide (Ozempic) for 4 weeks 0.25 mg (0.368 mL) subcut QWEEK 4 weeks 1.472 mL 0RF E11.9 - Type 2 diabetes mellitus without complications
[2024-05-25 16:53] VITALS: BP 130/72; BMI 37.1
== END 2024-05-25 17:15 | disposition home or self-care (01) ==
PROVIDERS: PCP Internal Medicine; Visit Provider Internal Medicine
DX: E11.65 Type 2 diabetes mellitus with hyperglycemia (principal); M81.0 Age-related osteoporosis without current pathological fracture; E78.5 Hyperlipidemia, unspecified; I10 Essential (primary) hypertension; K59.04 Chronic idiopathic constipation; E11.9 Type 2 diabetes mellitus without complications

== ENCOUNTER → 2024-05-25 16:42 | Outpatient (BNVA) | payer OTHER, SELFPAY | PROVIDERS: PCP Internal Medicine; Visit Provider Internal Medicine | DX: E11.65 Type 2 diabetes mellitus with hyperglycemia (principal); M81.0 Age-related osteoporosis without current pathological fracture; E78.5 Hyperlipidemia, unspecified; I10 Essential (primary) hypertension; K59.04 Chronic idiopathic constipation; Z79.84 Long term (current) use of oral hypoglycemic drugs; Z79.899 Other long term (current) drug therapy | CPT/HCPCS: 83036; 96127 ==

== ENCOUNTER 2024-07-01 10:45 | Outpatient (REF) | payer OTHER, SELFPAY ==
[2024-07-01 12:05] LABS: Alanine Aminotransferase 12 U/L (0-31); Albumin Level 4.3 g/dL (3.5-5.0); Alkaline Phosphatase 65 U/L (39-117); Anion Gap 10 (12-20); Aspartate Amino Transferase 18 U/L (5-31); Bilirubin Total 0.4 mg/dL (0.0-1.0); Blood Urea Nitrogen 10 mg/dL (9-16); Calcium 9.2 mg/dL (8.4-10.2); Carbon Dioxide 28 mmol/L (22-29); Chloride 104 mmol/L (96-108); Estimated Glomerular Filt Rate > 60; Glucose Random 101 mg/dL (60-115); Phosphorus 2.8 mg/dL (2.7-4.5); Sodium 138 mmol/L (135-145); Total Protein 7.8 g/dL (6.5-8.0)
[2024-07-01 12:19] LABS: TSH reflex Free T4 1.31 uIU/mL (0.32-4.0)
[2024-07-03 11:04] LABS: Prot Elec - Albumin 4.2 g/dL (3.8-4.8); Prot Elec - Alpha1 0.3 g/dL (0.2-0.3); Prot Elec - Alpha2 0.7 g/dL (0.5-0.9); Prot Elec - Beta 1 0.5 g/dL (0.4-0.6); Prot Elec - Beta 2 0.5 g/dL (0.2-0.5); Prot Elec - Gamma 1.3 g/dL (0.8-1.7); Prot Elec - Total Protein 7.4 g/dL (6.1-8.1)
== END 2024-07-01 10:46 | disposition home or self-care (01) ==
LOC: HO.LAB 10:45
PROVIDERS: PCP Internal Medicine; Visit Provider Student in an Organized Health Care Education/Training Program
DX: M81.0 Age-related osteoporosis without current pathological fracture (principal)
CPT/HCPCS: 36415; 80053; 83970; 84100; 84165; 84443

== ENCOUNTER 2024-07-02 09:15 | Outpatient (REF) | payer OTHER, SELFPAY ==
[2024-07-08 13:19] LABS: Vitamin D 25-OH, D2 <4 ng/mL; Vitamin D 25-OH, D3 54 ng/mL; Vitamin D 25-OH, Total 54 ng/mL (30-100)
[2024-07-08 13:49] LABS: Collagen Type I C-Telopeptide 154 pg/mL (see note)
== END 2024-07-02 09:16 | disposition home or self-care (01) ==
LOC: HO.LAB 09:15
PROVIDERS: PCP Internal Medicine; Visit Provider Student in an Organized Health Care Education/Training Program
DX: E55.9 Vitamin D deficiency, unspecified (principal); M81.0 Age-related osteoporosis without current pathological fracture
CPT/HCPCS: 36415; 82306; 82523

== ENCOUNTER 2024-07-02 15:24 | Outpatient (AMB) | payer OTHER, SELFPAY ==
--- NOTE | 2024-07-02 15:32 | MHC.OFFVIS ---
Vital Signs 07/02/24 15:36 Height 5 ft 2 in Weight 196 lb 10.437 oz BMI 36.0 BP 132/78 Blood Pressure Location Rt brachial Position Sitting Pulse 105 H Pulse Source Pulse Oximeter Pulse Oximetry (%) 97 Oxygen Delivery Method Room Air Intake Visit Reasons: FMS/osteoporosis Intake Note: Patient presents for FMS/Osteoporosis. Allergies buprenorphine [From Butrans] Allergy (Intermediate, Verified 07/02/24 15:36) Rash naproxen [NAPROXEN] Allergy (Intermediate, Verified 07/02/24 15:36) CHEST TIGHTNESS, vomiting Medication List - Last Reconciled 07/02/24 by Gabriele Hernández MD acetaminophen ER 650 mg PO Q8H PRN alendronate 70 mg PO QWEEK atorvastatin 10 mg PO BEDTIME 90 days baclofen 20 mg PO BID PRN NS citalopram 40 mg PO DAILY 90 days famotidine (Pepcid) 20 mg PO BEDTIME PRN gabapentin 300 mg PO BEDTIME hydroquinone 4% 1 appl topical DAILY 30 days lactobacillus combination no.4 (Probiotic) 3,000 mmu cells PO DAILY lidocaine 4% (Aspercreme (lidocaine)) 1 patch topical DAILY PRN linaclotide (Linzess) 290 mcg PO QAM lisinopril 10 mg PO DAILY 90 days menthol 2.5% (Icy Hot Pain Relieving) 1 appl topical BID-QID PRN metformin 1,000 mg PO BID 90 days methylcellulose (laxative) (Citrucel) 500 mg PO DAILY mirtazapine 15 mg PO BEDTIME 90 days montelukast 10 mg PO DAILY pantoprazole 40 mg PO DAILY semaglutide (Ozempic) 0.25 mg (0.368 mL) subcut QWEEK 4 weeks tramadol 50 mg PO Q8H PRN tretinoin 0.1% 1 appl topical BEDTIME 30 days Ventolin HFA 90 mcg/actuation (albuterol sulfate) 2 puffs inhalation Q6H PRN 30 days NS HPI Comments Details: This is a 58-year-old female with generalized osteoarthritis and osteoporosis who presents for follow-up. She remains on alendronate once weekly. It is well tolerated. She has been having left knee pain. She states that she had bilateral knee cortisone injections which helped her right knee but not her left. Last injection was about 2 months ago. She takes Tylenol Arthritis, tramadol and ices it. All with little relief. She states that she will be going back to pain management for a set of injections for her spine. She is doing well otherwise [facility] Medical History Osteoarthritis Sacroiliitis Right sided sciatica Left sciatic nerve pain History of cocaine use Tubular adenoma Asthma Diabetes 1.5, managed as type 2 Chronic idiopathic constipation GERD (gastroesophageal reflux disease) Surgical History Hx of section History of repair of hiatal hernia Hx of laparoscopic gastric banding Hx of esophagogastroduodenoscopy Hx of colonoscopy Family History Father Prostate CA Cancer of back Mother Diabetes 1.5, managed as type 2 CVD (cardiovascular disease) Social History Household Members: Other Household Members Other:: grandson Housing: House Alcohol intake: former Patient Tobacco Use Status: Current everyday Tobacco user Tobacco use type: Cigarette Cigarettes Per Day: 4 Years Smoked: 16 e-Cigarette/Vaping Use: Never Used Second Hand Smoke Exposure: No service: No Current occupational status: employed Current occupational exposures/hazards: No Sexual orientation: Straight/Heterosexual Gender identity: Female Cognitive needs: No Hearing needs: No Vision needs: Yes (reading glasses) Review of Systems [facility] [place] arthralgias Physical Exam Vital Signs: Last Vital Signs Pulse 105 H 07/02/24 15:36 BP 132/78 07/02/24 15:36 Pulse Ox 97 07/02/24 15:36 Oxygen Delivery Method Room Air 07/02/24 15:36 BMI result Body Mass Index 36.0 Const General: cooperative, healthy appearing, comfortable and no acute distress Nutritional Appearance: obese Orientation/consciousness: patient oriented x3 Limitations: no limitations HEENT Head: Yes normocephalic and Yes atraumatic Resp Effort & Inspection: normal respiratory effort and able to speak in complete sentences Neuro General: patient oriented x3 Extrem Other: Left knee warmth and pain with full flexion Assessment & Plan Assessment & Plan (1) Lumbosacral radiculopathy due to degenerative joint disease of spine: Code(s): M47.27 - Other spondylosis with radiculopathy, lumbosacral region Category: Medical Plan: Managing pain with Tylenol gabapentin and tramadol 50 mg t.i.d.. Patient has been stable on this dose with no side effects. Continue with tramadol 50 mg t.i.d. (2) Osteoporosis: Comment: Alendronate started around 01/2024 Code(s): M81.0 - Age-related osteoporosis without current pathological fracture Category: Medical Qualifiers: Osteoporosis type: age-related Presence of current pathological fracture: without current pathological fracture Qualified Code(s): M81.0 - Age-related osteoporosis without current pathological fracture Plan: Patient had her menopause in her early 40s. Smoker. Discussed osteoporosis and its management. Continue with alendronate 70 mg once weekly. It is well tolerated. I had ordered blood work to evaluate his secondary causes of osteoporosis. Patient just did her blood work yesterday, unfortunately it has not fully resulted. Will call patient with any significant abnormalities. Discussed vitamin-D supplementation Labs before next visit in 6 months Plan I spent 17 minutes reviewing patient's chart, evaluating patient, ordering diagnostic workup, counseling patient and documenting in the chart Orders: Orders Vitamin D 25-OH Total 6 Months E55.9 - Vitamin D deficiency, unspecified Basic Metabolic Panel 6 Months M81.0 - Age-related osteoporosis without current pathological fracture Coding Level of Care Code Est Pt Level 3 (90090) Diagnoses Lumbosacral radiculopathy due to degenerative joint disease of spine M47.27 Age-related osteoporosis without current pathological fracture M81.0 Osteoporosis type: age-related Presence of current pathological fracture: without current pathological fracture
[2024-07-02 15:36] VITALS: BP 132/78; PULSE 105; O2SAT 97; BMI 36.0
== END 2024-07-02 15:57 | disposition home or self-care (01) ==
PROVIDERS: PCP Internal Medicine; Visit Provider Student in an Organized Health Care Education/Training Program
DX: M47.27 Other spondylosis with radiculopathy, lumbosacral region (principal); M81.0 Age-related osteoporosis without current pathological fracture
CPT/HCPCS: 99213

== ENCOUNTER 2024-08-04 06:14 | Outpatient (REF) | payer OTHER, SELFPAY ==
--- NOTE | ~2024-08-04 | FL_ITS ---
EXAMINATION: FL GUIDANCE ONLY HISTORY: M54.16 - Radiculopathy, lumbar region COMPARISON: None available. TECHNIQUE: Fluoroscopy time: 0.4 minutes. Cumulative Dose: 7.25 mGy. DAP: 0.125 uGy-m2 (microgray-meter squared). Images: 2. FINDINGS: Images demonstrate needles and contrast in the right L4-5 and L5-S1 facet joints. FL/FL guidance in treatment room IMPRESSION: Fluoroscopy during procedure. Please see procedure report for additional information. Electronically signed by: Calvin Meza MD 08/04/2024 02:37 PM [facility]
== END 2024-08-04 06:15 | disposition home or self-care (01) ==
LOC: CF 06:14
PROVIDERS: Visit Provider Anesthesiology
DX: M54.16 Radiculopathy, lumbar region (principal)
CPT/HCPCS: 64483; 64484; J2003; J3301; Q9967

== ENCOUNTER 2024-08-04 08:08 | Outpatient (AMB) | payer OTHER, SELFPAY ==
[2024-08-04 08:25] VITALS: BP 110/62; PULSE 95; RESP 16; O2SAT 97
--- NOTE | 2024-08-04 08:25 | MHC.OFFVIS ---
Vital Signs 08/04/24 08:25 08/04/24 09:23 BP 110/62 112/60 Blood Pressure Location Rt brachial Rt brachial Position Sitting Sitting Respiration 16 16 Pulse 95 95 Pulse Source Pulse Oximeter Pulse Oximeter Pulse Oximetry (%) 97 97 Oxygen Delivery Method Room Air Room Air Intake Visit Reasons: RIGHT L4, L5, AND L5, S1 TFESI Allergies buprenorphine [From Butrans] Allergy (Intermediate, Verified 08/04/24 08:25) Rash naproxen [NAPROXEN] Allergy (Intermediate, Verified 08/04/24 08:25) CHEST TIGHTNESS, vomiting Medication List - Last Reconciled 08/04/24 by Madelyn Gray LPN acetaminophen ER 650 mg PO Q8H PRN alendronate 70 mg PO QWEEK atorvastatin 10 mg PO BEDTIME 90 days baclofen 20 mg PO BID PRN NS citalopram 40 mg PO DAILY 90 days famotidine (Pepcid) 20 mg PO BEDTIME PRN gabapentin 300 mg PO BEDTIME hydroquinone 4% 1 appl topical DAILY 30 days lactobacillus combination no.4 (Probiotic) 3,000 mmu cells PO DAILY lidocaine 4% (Aspercreme (lidocaine)) 1 patch topical DAILY PRN linaclotide (Linzess) 290 mcg PO QAM lisinopril 10 mg PO DAILY 90 days menthol 2.5% (Icy Hot Pain Relieving) 1 appl topical BID-QID PRN metformin 1,000 mg PO BID 90 days methylcellulose (laxative) (Citrucel) 500 mg PO DAILY mirtazapine 15 mg PO BEDTIME 90 days montelukast 10 mg PO DAILY pantoprazole 40 mg PO DAILY semaglutide (Ozempic) 0.25 mg (0.368 mL) subcut QWEEK 4 weeks tramadol 50 mg PO Q8H PRN tretinoin 0.1% 1 appl topical BEDTIME 30 days Ventolin HFA 90 mcg/actuation (albuterol sulfate) 2 puffs inhalation Q6H PRN 30 days NS [facility] Medical History Osteoarthritis Sacroiliitis Right sided sciatica Left sciatic nerve pain History of cocaine use Tubular adenoma Asthma Diabetes 1.5, managed as type 2 Chronic idiopathic constipation GERD (gastroesophageal reflux disease) Surgical History Hx of section History of repair of hiatal hernia Hx of laparoscopic gastric banding Hx of esophagogastroduodenoscopy Hx of colonoscopy Family History Father Prostate CA Cancer of back Mother Diabetes 1.5, managed as type 2 CVD (cardiovascular disease) Social History Household Members: Other Household Members Other:: grandson Housing: House Alcohol intake: former Patient Tobacco Use Status: Current everyday Tobacco user Tobacco use type: Cigarette Cigarettes Per Day: 4 Years Smoked: 16 e-Cigarette/Vaping Use: Never Used Second Hand Smoke Exposure: No service: No Current occupational status: employed Current occupational exposures/hazards: No Sexual orientation: Straight/Heterosexual Gender identity: Female Cognitive needs: No Hearing needs: No Vision needs: Yes (reading glasses) Physical Exam Vital Signs: Last Vital Signs Pulse 95 08/04/24 09:23 Resp 16 08/04/24 09:23 BP 112/60 08/04/24 09:23 Pulse Ox 97 08/04/24 09:23 Oxygen Delivery Method Room Air 08/04/24 09:23 Assessment & Plan Assessment & Plan (1) Radiculopathy, lumbar region: Code(s): M54.16 - Radiculopathy, lumbar region Category: Medical Plan Transforaminal right L4-5 and L5-S1 epidural steroid injection . Informed consent was thoroughly explained to the patient before the procedure.? The patient came to the operating room.? She was positioned prone on operating table with a pillow under his abdomen.? Time-out was performed delineating correct site and side of the procedure, nature of the injection, name and date of of the patient. The lower back of the patient was prepped with ChloraPrep and draped with sterile utility towels.? C-arm was brought over the operating field and sq picture of L4 was demonstrated on the screen.? The right side was chosen as the side of the injection.? Tilting machine ipsilateral to the right at the level of L4 1st the most prominent picture of the right pedicle was obtained on the screen.? 3 mm below the level of the lowest point of the pedicle projection to the skin small amount of lidocaine 1% 3-4 cc was injected to anesthetize the skin.? After that 5 in 22 gauge Quincke point needle was inserted through the skin wheal and was advanced toward the L4-5 foramina on anterior posterior , lateral and oblique views intermittently.? When needle reached appropriate positioned injection of the contrast was performed delineating epidural and perineural spread of the contrast. No intravascular no intra neuro and no intrathecal spread of the contrast was noted. After that injection of the 3 cc of lidocaine 1% mixed with Kenalog 30 mg was performed into the needle. After that procedure was repeated at L5-S1 level in similar fashion. Total dose of Kenalog was 60 mg. Patient tolerated the procedure well. The needles were removed Band-Aid were applied. Orders: Orders FL guidance in treatment room Today M54.16 - Radiculopathy, lumbar region Coding Level of Care Code Procedure Only Diagnoses Radiculopathy, lumbar region M54.16
[2024-08-04 09:23] VITALS: BP 112/60; PULSE 95; RESP 16; O2SAT 97
== END 2024-08-04 09:23 | disposition home or self-care (01) ==
LOC: HO.PMCPRC 08:08
PROVIDERS: PCP Internal Medicine; Visit Provider Anesthesiology
DX: M54.16 Radiculopathy, lumbar region (principal)
CPT/HCPCS: 64483; 64484

== ENCOUNTER 2024-08-26 10:52 | Outpatient (AMB) | payer OTHER, SELFPAY ==
--- NOTE | 2024-08-26 10:55 | MHC.OFFVIS ---
Vital Signs 08/26/24 10:59 Height 5 ft 2 in Weight 189 lb BMI 34.6 BP 122/68 Blood Pressure Location Rt brachial Position Sitting Pulse 104 H Pulse Source Pulse Oximeter Pulse Oximetry (%) 95 Oxygen Delivery Method Room Air Intake Visit Reasons: RIGHT L4, L5 AND L5, S1 TFESI Intake Note: Pain today 0/10 Automobile Body Customizer Required: No Accompanied by: Self / Same As Patient Allergies buprenorphine [From Butrans] Allergy (Intermediate, Verified 08/26/24 11:00) Rash naproxen [NAPROXEN] Allergy (Intermediate, Verified 08/26/24 11:00) CHEST TIGHTNESS, vomiting HPI Comments Details: Patient presents back to the office today for follow-up, 3 weeks status post right L4-5, L5-S1 transforaminal epidural steroid injection performed on August 04 She reports 90% improvement in pain, function and mobility since the injection Pain currently rated as 0/10. States she will have mild discomfort after working all day but no longer with pain radiating down her leg. Denies any untoward effects of the injection Prior: Patient presents back to the office today for follow-up, review of recent MRI MRI reviewed, results as per below Patient has previously completed physical therapy with no improvement. She does daily home exercise program as guided by PT on discharge but pain persists. No improvement with heat, ice, prescription medications, topical medications, Tylenol and nonsteroidal anti-inflammatory medications. She had 70% improvement with previous epidural steroid injection, she would like to repeat. Prior: Anamika presents back to the office today for follow-up right lower back pain. She underwent right L4-5, L5-S1 transforaminal epidural steroid injection approximately 2 years ago which improved her pain. She states pain recently returned and she would like to repeat the injection Endorses right lower back pain with radiation leg to the foot. Endorses burning of the right lower extremity Denies red flag symptoms including new loss of bowel, bladder or saddle anesthesia Patient has previously completed PT without improvement. She currently continues home exercise program as guided by PT without improvement of her pain She has tried heat, ice, tramadol, Aleve, lidocaine patches, bracing and Tylenol Arthritis without resolution of her symptoms 04/10/[address] Head Anamika is back in my office to discuss the results of right L4-5 and L5-S1 transforaminal epidural steroid injection on 04/10/2022. She reports 2 days of complete pain improvement. One hundred % pain relief. After that the pain came back however it never become as strong as it was before the injection. She reports obtain now 70% of pain improvement, better mobility better social interactions better activities of daily living. I discussed the results of the injections with her. I can repeat her injections if her pain will come back in the interval of the 3 month before the injections. So she will be eligible for injection after July 10 if she desires to. Prior: complains on pain in the projection of the lower right buttock radiating down right lower extremity all the way to her foot.? She reports that this pain is aggravated when she is sitting, she reports the aggravation of the pain when she is in bed on the right side she has to be on the left side.? She reports that walking alleviates her pain.? Valsalva maneuver, coughing and sneezing, straining down all aggravate her pain. ?On physical exam her symptoms were suggestive of sacroiliitis, however when I performed diagnostic right sacroiliac joint injection it did not alleviate her pain at all..? She denies any weakness or numbness in the right lower extremity denies any weakness on numbness anywhere else.? S ?She reports minimal pain relief from physical therapy however this pain relieve is short leave no more than 1 and half to 2 hours.? She cannot afford to go for physical therapy.? She reports that she still owes them money for the previous sessions of physical therapy. [facility] Medical History Osteoarthritis Sacroiliitis Right sided sciatica Left sciatic nerve pain History of cocaine use Tubular adenoma Asthma Diabetes 1.5, managed as type 2 Chronic idiopathic constipation GERD (gastroesophageal reflux disease) Surgical History Hx of section History of repair of hiatal hernia Hx of laparoscopic gastric banding Hx of esophagogastroduodenoscopy Hx of colonoscopy Family History Father Prostate CA Cancer of back Mother Diabetes 1.5, managed as type 2 CVD (cardiovascular disease) Social History Household Members: Other Household Members Other:: grandson Housing: House Alcohol intake: former Patient Tobacco Use Status: Current everyday Tobacco user Tobacco use type: Cigarette Cigarettes Per Day: 4 Years Smoked: 16 e-Cigarette/Vaping Use: Never Used Second Hand Smoke Exposure: No service: No Current occupational status: employed Current occupational exposures/hazards: No Sexual orientation: Straight/Heterosexual Gender identity: Female Cognitive needs: No Hearing needs: No Vision needs: Yes (reading glasses) Review of Systems Const All systems reviewed & are unremarkable except as noted in HPI and below Physical Exam Vital Signs: Last Vital Signs Pulse 104 H 08/26/24 10:59 BP 122/68 08/26/24 10:59 Pulse Ox 95 08/26/24 10:59 Oxygen Delivery Method Room Air 08/26/24 10:59 BMI result Body Mass Index 34.6 General: awake, alert, oriented. Answers questions appropriately. Fully engaged in examination. Skin: warm, dry, intact HEENT: Normocephalic. Hearing intact. Cardiac: External chest normal in appearance. Respiratory: No cough, audible wheezing or stridor. Abdomen: without gross distension. MS: No obvious swelling or deformities. Neurological: Oriented to person, place, time and situation. Thought process intact. No gait abnormalities appreciated. Psychiatric: Appropriate mood and affect. Good judgment and insight. Results Reviewed Results Reviewed: 03/2024 MR LS FINDINGS: Submitted for interpretation on May 12, 2024. Last rib-bearing vertebra labeled T12. Prominent epidural fat, L5-S1. No bone marrow STIR signal abnormality. Multilevel disc desiccation more conspicuous at L5-S1. Focal hyperintense T2 signal in the posterior intervertebral disc L5-S1 likely annular fissure. Bone marrow inhomogeneity. Conus medullaris ends at superior endplate of L1 with normal signal. T12-L1: No compression upon neural elements. L1-2: No compression upon neural elements. L2-3: No compression upon neural elements. L3-4: Broad-based disc bulging. Facet joint and ligamentum flavum hypertrophy. Reduced AP diameter of the thecal sac and the neural foramina. L4-5: Broad-based disc bulging. Facet joint and ligamentum flavum hypertrophy. Reduced AP diameter of the thecal sac and bilateral neuroforamina narrowing likely encroaching the neural elements. L5-S1: Central and right subarticular broad-based disc herniation encroaching the right S1 nerve root. Facet joint hypertrophy resulting in bilateral neuroforamina narrowing. No prevertebral compartment hematoma, mass or fluid collection. IMPRESSION: Central and right subarticular broad-based disc herniation L5-S1 encroaching right S1 nerve root. Multilevel lumbar spondylosis, L3-4, 2 L4-5 encroaching neural elements thecal sac at L4-5 level MRI lumbar spine 02/21/2022. Graph findings: Vertebral bodies and paraspinal structures: The marrow signal is within normal limits. There are no compression fractures or subluxation. Mildly reduced intradiscal signal is evident at L5-S1 level. The paraspinal soft tissues appear normal. Small right renal cysts noted for which no imaging follow-up is indicated. The visualization bony pelvis appears normal. Conus medullaris and cauda equina: Normal terminating at the level of L1. No lower cord signal abnormalities seen. The cauda equina nerve roots are normal. Spinal level: L1-L2, L2-L3, L3-L4: Well-hydrated normal appearance of the disc without central canal stenosis or foraminal narrowing [id number] left-sided facet arthropathy at the L3-L4 level. L4-5: Mild disc bulge and facet arthropathy without central canal stenosis. Bulging disc results in mild left foraminal narrowing. Broad-based right posterior lateral disc protrusion with moderate right foraminal encroachment mildly impresses upon the exiting right L4 nerve root. L5-S1: Disc degeneration and right subarticular zone disc protrusion impinges upon the right S1 nerve root. Mild facet arthropathy without central canal stenosis. Mild foraminal narrowing. Assessment & Plan Assessment & Plan (1) Radiculopathy, lumbar region: Code(s): M54.16 - Radiculopathy, lumbar region Category: Medical Plan Patient presented to the office today for follow-up, 3 weeks status post right L4-5, L5-S1 transforaminal epidural steroid injection Endorses 90% improvement in pain, function and mobility since the injection. Denies any untoward effects. Continue with topical lidocaine patches, topical anti-inflammatory cream, muscle relaxers and gabapentin as prescribed. Continue with home exercise program. All questions and concerns were answered, patient agrees with plan. Follow up when pain returns, sooner if needed Coding Level of Care Code Est Pt Level 3 (81719) Complex EM visit Add On G2211 Diagnoses Radiculopathy, lumbar region M54.16
[2024-08-26 10:59] VITALS: BP 122/68; PULSE 104; O2SAT 95; BMI 34.6
--- OUTSIDE RECORDS SUMMARY | 2024-08-26 12:42 | XMS_ITS | Clinical Summary ---
Author Organization [employer] Address [address] [place] [address] [address] [place] [address] Care Team Providers Care Case Resource Manager Name Role Phone Unavailable Primary Care Provider Unavailabl e Immunizations Name Administration Dates Next Due Influenza, seasonal, injectable, preservative fr ee 05/05/2024 Pfizer Covid-19 Vaccine 12+ 05/05/2024, Social History Tobacco Use Types Packs/Day Years Used Date Smoking Tobacco: Never Assessed Comments Unknown Sex and Gender Information Value Date Recorded Sex Assigned at Female 06/11/2023 2:29 PM EST Legal Sex Female 2:28 PM EST Gender Identity Female 06/11/2023 2:29 PM EST Sexual Orientation Straight 06/11/2023 2: 29 PM EST Plan of Treatment Health Maintenance Due Date Last Done Comments CT Colonography 1963 Colonoscopy 1963 Colorectal Cancer Screening 1963 Depression Screening 1963 FIT DNA/Cologuard 1963 FIT 1963 FOBT 1963 HIV Screening 1963 SDOH Screening 1963 Sigmoidoscopy 1963 Alcohol/Substance Use Screening 1975 Tobacco Screening 1975 Hepatitis C Screening 11/14/1981 Pap Smear 11/14/1984 Cervical Cancer Screening 11/14/1993 HPV/Cotest 11/14/1993 Mammogram 2003 Zoster Vaccines (1 of 2) 11/14/2013 Pneumococcal Vaccine: 50+ Years (2 of 2 - PCV) 10/21/2019 10/20/2018 DTaP/Tdap/Td Vaccines (2 - Td or Tdap) 05/04/2026 05/04/2016 RSV Patients and Patients Aged 60 years or older (1 - 1-dose 75+ series) 11/14/2038 COVID-19 Vaccine Completed 05/05/2024, , 02/13/2022, Additional history exists Influenza Vaccine Completed 05/05/2024, , 04/02/2020, Additional history exists HIB Vaccines Aged Out No longer eligi ble based on patient's age to complete this topic HPV Vaccines Aged Out No longer eligi ble based on patient's age to complete this topic Hepatitis A Vaccines Aged Out No long er eligible based on patient's age to complete this topic Hepatitis B Vaccines Aged Out No long er eligible based on patient's age to complete this topic IPV Vaccines Aged Out No longer eligi ble based on patient's age to complete this topic Meningococcal Vaccine Aged Out No ishmael edil eligible based on patient's age to complete this topic RSV under 20 months Aged Out No longe r eligible based on patient's age to complete this topic Rotavirus Vaccines Aged Out No longer eligible based on patient's age to complete this topic [place] [address] , [address] [place] [address]
== END 2024-08-26 11:10 | disposition home or self-care (01) ==
PROVIDERS: PCP Internal Medicine; Visit Provider Registered Nurse Emergency
DX: M54.16 Radiculopathy, lumbar region (principal)
CPT/HCPCS: 99213

== ENCOUNTER 2024-12-28 15:28 | Outpatient (AMB) | payer OTHER, SELFPAY ==
--- NOTE | 2024-12-28 15:32 | A.OFFPC_ITS ---
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 Accompanied by: Self / Same As Patient Allergies buprenorphine [From Butrans] Allergy (Intermediate, Verified 12/28/24 15:56) Rash naproxen [NAPROXEN] Allergy (Intermediate, Verified 12/28/24 15:56) CHEST TIGHTNESS, vomiting Medication List - Last Reconciled 12/28/24 by Chanell Ford MD acetaminophen ER 650 mg PO Q8H PRN alendronate 70 mg PO QWEEK atorvastatin 10 mg PO BEDTIME 90 days baclofen 20 mg PO BID PRN NS citalopram 40 mg PO DAILY 90 days famotidine (Pepcid) 20 mg PO BEDTIME PRN gabapentin 300 mg PO BEDTIME hydroquinone 4% 1 appl topical DAILY 30 days lactobacillus combination no.4 (Probiotic) 3,000 mmu cells PO DAILY lidocaine 4% (Aspercreme (lidocaine)) 1 patch topical DAILY PRN linaclotide (Linzess) 290 mcg PO QAM lisinopril 10 mg PO DAILY 90 days menthol 2.5% (Icy Hot Pain Relieving) 1 appl topical BID-QID PRN metformin 1,000 mg PO BID 90 days methylcellulose (laxative) (Citrucel) 500 mg PO DAILY mirtazapine 15 mg PO BEDTIME 90 days montelukast 10 mg PO DAILY pantoprazole 40 mg PO DAILY semaglutide (Ozempic) 0.25 mg (0.368 mL) subcut QWEEK 4 weeks tramadol 50 mg PO Q8H 90 days tretinoin 0.1% 1 appl topical BEDTIME 30 days Ventolin HFA 90 mcg/actuation (albuterol sulfate) 2 puffs inhalation Q6H PRN 30 days NS Tobacco use date assessed: 12/28/24 Dental Screening Dental Screen Date: 12/28/24 Did you have a dental visit in the last 12 months?: No Did you have a dental problem in the last 6 months where you did not have access to dental care?: No Was dental information given to patient?: Patient has dentist HPI HPI Comments History of Present Illness Details The patient is a 59-year-old female presenting for an annual physical examination. The patient has a history of osteoporosis diagnosed in 2023, for which she is currently taking Fosamax weekly. She underwent a bone density scan in 2023 and is due for a follow-up in 2025. In the previous year, the patient underwent a colonoscopy which revealed a tubular adenoma. She is scheduled for a repeat colonoscopy in 2028. The patient is being treated for depression with anxiety, for which she is prescribed citalopram. She also takes mirtazapine at night. The patient has hyperlipidemia managed with atorvastatin 10 mg. She has a history of hypertension, currently managed with lisinopril 10 mg. The patient has type 2 diabetes mellitus, for which she is taking metformin 1000 mg daily. Her last hemoglobin A1c was 5.9, indicating good control. She reports gastroesophageal reflux disease, managed with pantoprazole and Pepcid. The patient experiences constipation, for which she takes linaclotide. She has allergies to Butron and naproxen. Her family history is significant for her father having had prostate cancer and her mother having diabetes and heart disease. The patient smokes approximately four cigarettes a day, primarily during work breaks. Her surgical history includes three sections, a hiatal hernia repair in 2012, and gastric surgery in 2010. - Mammography performed last year, with a follow-up scheduled for this year. - Bone density scan performed in 2023, w ith a follow-up due in 2025. - Colonoscopy performed last year, with a repeat scheduled in 2028. - RSV vaccine administered. - Shingles vaccine recommended for next year. PFS Medical History Osteoarthritis Sacroiliitis Right sided sciatica Left sciatic nerve pain History of cocaine use Tubular adenoma Asthma Diabetes 1.5, managed as type 2 Chronic idiopathic constipation GERD (gastroesophageal reflux disease) Surgical History Hx of section History of repair of hiatal hernia Hx of laparoscopic gastric banding Hx of esophagogastroduodenoscopy Hx of colonoscopy Family History Father Prostate CA Cancer of back Mother Diabetes 1.5, managed as type 2 CVD (cardiovascular disease) Social History Household Members: Other Household Members Other:: grandson Housing: House Alcohol intake: former Patient Tobacco Use Status: Current everyday Tobacco user Tobacco use type: Cigarette Cigarettes Per Day: 4 Years Smoked: 16 e-Cigarette/Vaping Use: Never Used Second Hand Smoke Exposure: No service: No Current occupational status: employed Current occupational exposures/hazards: No Sexual orientation: Straight/Heterosexual Gender identity: Female Cognitive needs: No Hearing needs: No Vision needs: Yes (reading glasses) Questionnaire PHQ-9 Over the last 2 weeks, how often have you been bothered by any of the following problems? 1. Little interest or pleasure in doing things: not at all 2. Feeling down, depressed, or hopeless: not at all 3. Trouble falling or staying asleep, or sleeping too much: nearly every day 4. Feeling tired or having little energy: not at all 5. Poor appetite or overeating: not at all 6. Feeling bad about yourself - or that you are a failure or have let yourself or your family down: not at all 7. Trouble concentrating on things, such as reading the newspaper or watching television: not at all 8. Moving or speaking so slowly that other people could have noticed. Or the opposite - being so fidgety or restless that you have been moving around a lot more than usual: not at all 9. Thoughts that you would be better off or of hurting yourself in some way: not at all Total score: 3 Depression Screening Interpretation: Positive Depression Screening Follow-up: Existing condition, In treatment and Follow-up Visit Requested Depression Screening Done: Yes 33477 - PHQ-9 Billing: Yes Source: Developed by Drs. Calvin Maria, Meghan Eddy, Josh Blandon and colleagues, with an educational andi from [employer]. Thrive Questionnaire Date Thrive assessed: 12/21/24 I am a: Patient What is your living situation today?: I have a steady place to live Within the past 12 months, did the food you bought not last and you didn't have the money to get more?: Never true Within the past 12 months, did you worry whether your food would run out before you got money to buy more?: Never true Do you have trouble paying for medicines?: Yes Do you have trouble getting transportation to medical appointments?: No Do you have trouble paying your heating and electricity bill?: No Do you have trouble taking care of your child, family member or friend?: No Do you have trouble with day-to-day activities such as bathing, preparing meals, shopping, managing finances, etc.?: No Are you currently unemployed and looking for a job?: No Are you interested in more education?: No Please select the resources that you would like help with: None Currently or been in a relationship where the following occur: No concerns reported THRIVE Score: 0 AUDIT C Alcohol Use Questionnaire (AUDIT-C) 1. How often do you have a drink containing alcohol?: Never Total Score: 0 Score Reviewed/Action Taken: No ERIKA-7 AMB Questionnaire ERIKA-7 Date ERIKA - 7 assessed: 12/28/24 Feeling nervous, anxious, or on edge: 0 = Not at all Not being able to stop or control worryin = Not at all Worrying too much about different things: 0 = Not at all Trouble relaxin = Not at all Being so restless that it is hard to sit still: 3 = Nearly every day Becoming easily annoyed or irritable: 0 = Not at all Feeling afraid as if something awful might happen: 0 = Not at all Total ERIKA-7 score (0-4 normal; 5-9 mild; 10-14 moderate; 15-21 severe): 3 Source: Developed by Drs. Calvin Maria, Meghan Eddy, Josh Blandon and colleagues, with an educational andi from [employer]. ERIKA-7 Assessment Billing ERIKA-7 Assessment Tool: ERIKA-7 Assessment 70023 Review of Systems Const All systems reviewed & are unremarkable except as noted in HPI and below Card Denies chest pain at rest, Denies chest pain with activity, Denies edema, Denies irregular heart rhythm, Denies claudication, Denies dyspnea, Denies dyspnea on exertion, Denies orthopnea, Denies paroxysmal nocturnal dyspnea and Denies slow heart rate Resp Denies cough, Denies dyspnea and Denies dyspnea on exertion GI Denies abdominal pain, Denies change in bowel habits, Denies excessive flatus, Denies nausea and Denies vomiting Denies urinary incontinence, Denies urinary hesitancy and Denies urinary urgency Musc Denies abnormal gait, Denies atrophy, Denies deformity and Denies limited range of motion Skin/Breast Denies bleeding lesions, Denies changing lesions and Denies rash Neuro Denies abnormal gait and Denies lack of coordination Physical exam (Primary Care) Vital Signs: Last Vital Signs BP 122/70 12/28/24 15:34 BMI result Body Mass Index 33.8 BMI Assessment/Plan discussion: High BMI High, discussed plan: lifestyle, weight reduction, dietary and physical activity Tobacco/Smoking Status: Tobacco use Status Tobacco use date assessed 12/28/24 12/28/24 15:42 Patient Tobacco Use Status Current everyday Tobacco 12/28/24 15:39 Tobacco use type Cigarette 12/28/24 15:39 e-Cigarette/Vaping Use Never Used 12/28/24 15:39 PHQ-9: PHQ-9 Score PHQ-9: Total score 3 12/28/24 16:02 Depression Screening Interpretation: Positive Depression Screening Follow-up: Existing condition, In treatment and Follow-up Visit Requested Thrive Assessment: Date of Thrive Assessment Date Thrive assessed 12/21/24 12/28/24 15:39 Currently or been in a relationship where the following occur: No concerns reported [facility] Head: Yes normal to inspection, Yes normocephalic and Yes atraumatic Ears: external ears normal Eyes General: appearance normal, both eyes and all related structures Eyelids: Yes eyelids normal Conjunctivae: conjunctivae normal Neck Neck: Yes normal visual inspection and Yes supple Resp Effort & Inspection: normal respiratory effort Auscultation: clear to auscultation bilaterally Cardio Jugular venous distension: no JVD Rate: regular rate Rhythm: regular rhythm Heart sounds: S1 normal heart sound present and S2 normal heart sound present GI Inspection: Yes normal to inspection Palpation (GI): Soft to palpation and nontender Auscultation: normal bowel sounds Skin General skin exam: no rashes or lesions noted Neuro General: no focal motor deficits Extrem General: Yes full ROM Psych Appearance: grossly normal Results AMB Hemoglobin A1c AMB Hemoglobin A1c 5.9 % Last Edit by JB Correa on 12/28/24 15:4 7 Results Reviewed Results Reviewed: Laboratory Last Values Hgb A1c (Clinic) 5.9 % (4.0-6.0) 12/28/24 15:47 Coding Level of Care Code Est Pt Prev Care 40-64y(98718) Diagnoses Physical exam Z00.00 Type 2 diabetes mellitus with hyperglycemia, without long-term current use of insulin E11.65 Diabetes mellitus type: type 2 Diabetes mellitus intermediate frame tender insulin use: without intermediate use Diabetes mellitus complication status: with hyperglycemia Additional Codes ERIKA-7 Assessment Billing - ERIKA-7 Assessment Tool: ERIKA-7 Assessment 27385 ([id number]) PHQ-9 - 92896 - PHQ-9 Billing: Yes ([id number]) Time Spent (min) 31 Assessment & Plan Assessment & Plan (1) Physical exam: Code(s): Z00.00 - Encounter for general adult medical examination without abnormal findings Category: Medical (2) Diabetes mellitus: Code(s): E11.9 - Type 2 diabetes mellitus without complications Category: Medical Qualifiers: Diabetes mellitus type: type 2 Diabetes mellitus intermediate frame tender insulin use: without intermediate frame tender use Diabetes mellitus complication status: with hyperglycemia Qualified Code(s): E11.65 - Type 2 diabetes mellitus with hyperglycemia Plan The patient will continue with her current medication regimen, including Fosamax for osteoporosis, citalopram and mirtazapine for depression with anxiety, atorvastatin for hyperlipidemia, lisinopril for hypertension, and metformin for diabetes management. She is advised to follow up with a bone density scan in 2025 and a colonoscopy in 2028. The patient is encouraged to consider the shingles vaccine next year and to maintain her current vaccination schedule. Smoking cessation is recommended, given her current habit of smoking four cigarettes a day. Patient was informed and verbally consented to the use of an ambient scribe for clinic note documentation during this visit. Orders: Orders AMB Hemoglobin A1c Today E11.65 - Type 2 diabetes mellitus with hyperglycemia Lipid Panel Today E78.5 - Hyperlipidemia, unspecified Microalbumin, Random (w Creat) Today R80.9 - Proteinuria, unspecified Complete Blood Count Auto Diff Today D64.9 - Anemia, unspecified IRON PROFILE Today D64.9 - Anemia, unspecified Vitamin D 25-OH Total Today E55.9 - Vitamin D deficiency, unspecified Comprehensive [place]. Panel Fast Today E11.65 - Type 2 diabetes mellitus with hyperglycemia Vitamin B12 and Folate Today E53.8 - Deficiency of other specified B group vitamins Referrals Ophthalmology Referral E11.65 - Type 2 diabetes mellitus with hyperglycemia Medications: New semaglutide (Ozempic) 0.5 mg (0.736 mL) subcut QWEEK 2.944 mL 0RF 4 weeks E11.65 - Type 2 diabetes mellitus with hyperglycemia Discontinued semaglutide (Ozempic) for 4 weeks Discontinued Reason: Patient Completed Course 0.25 mg (0.368 mL) subcut QWEEK 4 weeks 1.472 mL 0RF E11.9 - Type 2 diabetes mellitus without complications
[2024-12-28 15:34] VITALS: BP 122/70; BMI 33.8
--- OUTSIDE RECORDS SUMMARY | 2024-12-28 17:24 | XMS_ITS | Clinical Summary ---
Author Organization [employer] Address [address] [place] [address] [address] [place] [address] Care Team Providers Care Spooler Rubber Strand Name Role Phone Unavailable Primary Care Provider Unavailabl e Immunizations Immunization Administration Dates Next Due Influenza, seasonal, injectable, [...] Screening 1963 SDOH Screening 1963 Sigmoidoscopy 1963 Disability Screening 1963 Alcohol/Substance Use Screening 1975 Tobacco Screening [...] patient's age to complete this topic Meningococcal B Vaccine Aged Out No l onger eligible based on patient's age to complete this topic Meningococcal Vaccine Aged Out No ishmael edil eligible based on patient's age to complete this topic RSV under 20 months Aged Out No longe r eligible based on patient's age to complete this topic Rotavirus Vaccines Aged Out No longer eligible based on patient's age to complete this topic [place] [address] [address] , [address] [place] [id number]
== END 2024-12-28 16:06 | disposition home or self-care (01) ==
LOC: HO.HMCH 15:29
PROVIDERS: PCP Internal Medicine; Visit Provider Internal Medicine
DX: Z00.00 Encounter for general adult medical examination without abnormal findings (principal); E11.65 Type 2 diabetes mellitus with hyperglycemia

== ENCOUNTER → 2024-12-28 15:28 | Outpatient (BNVA) | payer OTHER, SELFPAY | PROVIDERS: PCP Internal Medicine; Visit Provider Internal Medicine | DX: Z00.00 Encounter for general adult medical examination without abnormal findings (principal); E11.65 Type 2 diabetes mellitus with hyperglycemia; M81.0 Age-related osteoporosis without current pathological fracture; F32.A Depression, unspecified; F41.9 Anxiety disorder, unspecified; E78.5 Hyperlipidemia, unspecified; I10 Essential (primary) hypertension; K21.9 Gastro-esophageal reflux disease without esophagitis; F17.210 Nicotine dependence, cigarettes, uncomplicated; R80.9 Proteinuria, unspecified; D64.9 Anemia, unspecified; E55.9 Vitamin D deficiency, unspecified; E53.8 Deficiency of other specified B group vitamins; Z79.899 Other long term (current) drug therapy | CPT/HCPCS: 83036; 96127 ==

== ENCOUNTER 2025-01-05 15:54 | Outpatient (REF) | payer OTHER, SELFPAY ==
--- NOTE | ~2025-01-05 | MM_ITS ---
EXAMINATION: MM SCREENING DIGITAL BREAST TOMOSYNTHESIS, BILATERAL CLINICAL INFORMATION: Screening. Asymptomatic. COMPARISON: Mammography: Comparison is made with available priors TECHNIQUE: Digital breast mammography with tomosynthesis is performed in both the craniocaudal and mediolateral oblique views along with computer-aided detection (CAD). FINDINGS: There are scattered areas of fibroglandular density (ACR BI-RADS breast composition Category b). There are no significant masses, abnormal calcifications, or other abnormalities. MM/MM tomosynthesis screening BI IMPRESSION: No mammographic evidence of malignancy. ASSESSMENT: BI-RADS BI-RADS 1 - Negative RECOMMENDATION: Routine annual mammography screening. 1 year F/U This examination should not preclude the clinical evaluation of a suspicious palpable abnormality. This patient's information was entered into a reminder system with a target due date for their next mammogram. Electronically signed by: Torri Ang DO 01/23/2025 02:55 PM EDT
--- OUTSIDE RECORDS SUMMARY | 2025-01-05 18:54 | XMS_ITS | Patient Health Record ---
Author Organization [facility] Address [address] [place] [address] Care Team Providers Care Telephoner Name Role Phone Chanell Garrett Primary Care Provider Eleno Marie Jr Unavailable Allergies Allergen (clinical drug ingredient) Drug/Non Drug Allergy documented on EMR Reaction Allergy Type Onset Date Status seasonal (uncoded) Unknown Allergy A ctive Reason For Referral No Information Medications Medication SIG (Take, Route, Fr equency, Duration) Notes Start Date End Date Status CeleXA 40mg Active Colace 100mg Active tiZANidine HCl 4mg A ctive Omeprazole 20mg Acti ve Problems Problem Type SNOMED Code ICD Code Onset Dates Problem Status W/U Status Risk Notes Problem Esophageal reflux (718185841) Esophageal reflux (530.81) Active confirmed Problem Constipation (564.00) Active confirmed Plan Of Treatment Pending Test Test Name Order Date XR GI SERIES 06/17/2013 Insurance Providers Payer Name Payer Address Payer Phone Subscriber Number Group Number Insured Name Patient Relationship to Insured Coverage Start Date Coverage End Date [facility] [address] [place] [phone] [id number] CHRISTINA MILNER Self - patient is the insured Medical (General) History Medical History History ICD Code Denies UT,DM,CVA,Lung disease,renal dise ase colon polyps esophageal reflux attention deficit disorder sciatica Surgical History Surgery Date(Month/Year) section tubal ligation lab band hiatal hernia
== END 2025-01-05 15:55 | disposition home or self-care (01) ==
LOC: HO.MAMMO 15:54
PROVIDERS: PCP Internal Medicine; Visit Provider Internal Medicine
DX: Z12.31 Encounter for screening mammogram for malignant neoplasm of breast (principal)
CPT/HCPCS: 77063; 77067

== ENCOUNTER → 2025-01-05 16:00 | Outpatient (BNV) | payer OTHER, SELFPAY | PROVIDERS: PCP Internal Medicine; Visit Provider Internal Medicine | DX: Z12.31 Encounter for screening mammogram for malignant neoplasm of breast (principal) | CPT/HCPCS: 77063; 77067 ==

== ENCOUNTER 2025-01-19 15:44 | Outpatient (AMB) | payer OTHER, SELFPAY ==
--- NOTE | 2025-01-19 15:46 | A.OFFVIS_ITS ---
Vital Signs 01/19/25 15:52 Height 5 ft 2 in Weight 183 lb BMI 33.5 BP 118/62 Blood Pressure Location Lt brachial Position Sitting Pulse 96 Pulse Source Pulse Oximeter Pulse Oximetry (%) 97 Oxygen Delivery Method Room Air Intake Visit Reasons: Tramadol/OA Intake Note: Patient presents for follow up on osteoarthritis and osteoporosis, lab review and Tramadol prescription. Allergies buprenorphine (From Butrans) Allergy (Intermediate, Verified 01/19/25 15:51) Rash naproxen (NAPROXEN) Allergy (Intermediate, Verified 01/19/25 15:51) CHEST TIGHTNESS, vomiting Medication List - Last Reconciled 01/19/25 by Ariana Flynn MD acetaminophen ER 650 mg PO Q8H PRN alendronate 70 mg PO QWEEK atorvastatin 10 mg PO BEDTIME 90 days baclofen 20 mg PO BID PRN NS citalopram 40 mg PO DAILY 90 days famotidine 20 mg PO BEDTIME PRN gabapentin 300 mg PO BEDTIME hydroquinone 4% 1 appl topical DAILY 30 days lactobacillus combination no.4 (Probiotic) 3,000 mmu cells PO DAILY lidocaine 4% (Aspercreme (lidocaine)) 1 patch topical DAILY PRN linaclotide (Linzess) 290 mcg PO QAM lisinopril 10 mg PO DAILY 90 days menthol 2.5% (Icy Hot Pain Relieving) 1 appl topical BID-QID PRN metformin 1,000 mg PO BID 90 days methylcellulose (laxative) (Citrucel) 500 mg PO DAILY mirtazapine 15 mg PO BEDTIME 90 days montelukast 10 mg PO DAILY pantoprazole 40 mg PO DAILY semaglutide (Ozempic) 0.5 mg (0.736 mL) subcut QWEEK 4 weeks tramadol 50 mg PO Q8H 90 days tretinoin 0.1% 1 appl topical BEDTIME 30 days Ventolin HFA 90 mcg/actuation (albuterol sulfate) 2 puffs inhalation Q6H PRN 30 days NS HPI Comments Details: Patient is a 59 y.o. female with HLD, HTN, DM, GERD, polyarticular OA and osteoporosis here today for follow up Interval History: Patient last seen 07/02/[address] Hernández - Left knee pain - Hx of bilateral steroid injections with ortho - Back pain - Gets injections from Pain management as well Today, - Still has knee pain but manages this with icing, tramadol and Tylenol arthritis - Back pain is better with injections from pain management Rheumatologic History: OA Osteoporosis Current Rheumatology Medication(s): Tramadol 50mg q8h PFS Medical History Osteoarthritis Sacroiliitis Right sided sciatica Left sciatic nerve pain History of cocaine use Tubular adenoma Asthma Diabetes 1.5, managed as type 2 Chronic idiopathic constipation GERD (gastroesophageal reflux disease) Surgical History Hx of section History of repair of hiatal hernia Hx of laparoscopic gastric banding Hx of esophagogastroduodenoscopy Hx of colonoscopy Family History Father Prostate CA Cancer of back Mother Diabetes 1.5, managed as type 2 CVD (cardiovascular disease) Social History Household Members: Other Household Members Other:: grandson Housing: House Alcohol intake: former Patient Tobacco Use Status: Current everyday Tobacco user Tobacco use type: Cigarette Cigarettes Per Day: 4 Years Smoked: 16 e-Cigarette/Vaping Use: Never Used Second Hand Smoke Exposure: No service: No Current occupational status: employed Current occupational exposures/hazards: No Sexual orientation: Straight/Heterosexual Gender identity: Female Cognitive needs: No Hearing needs: No Vision needs: Yes (reading glasses) Review of Systems Const Details: Review of Systems Constitutional: Denies fever, chills, weight loss ENT: Denies vision changes, eye pain or eye redness, dental caries, dry mouth GI: Denies nausea, vomiting, diarrhea, abdominal pain, change in BM Pulm: Denies SOB, LUIS, hemoptysis, wheezing Cards: Denies chest pain, palpitations Skin: Denies Raynaud's, rash, nail changes, photosensitivity, MEDICAID SERVICE COORDINATOR: Denies headaches, weakness, paresthesias, recurrent falls MSK: as per HPI All other systems reviewed and are unremarkable except noted above Physical Exam Vital Signs: Last Vital Signs Pulse 96 01/19/25 15:52 BP 118/62 01/19/25 15:52 Pulse Ox 97 07/08/25 15:52 Oxygen Delivery Method Room Air 07/08/25 15:52 BMI result Body Mass Index 33.5 Vital signs reviewed Physical Examination CONSTITUITIONAL Patient alert and cooperative. Well appearing and in no apparent painful distress HEENT Conjunctiva and sclera clear. No lymphadenopathy. CHEST/RESPIRATORY SYSTEM Normal respiratory effort and able to speak in complete sentences. Clear to auscultation bilaterally. No crackles, rales, rhonchi, wheezes heard. CARDIAC SYSTEM Regular rate and rhythm. S1 and S2 heard no murmurs. Radial pulses intact bilaterally MSK Hands * Right Hand: Able to make a fist. No swelling or tenderness to palpation of these joints. No deformities noted. * Left Hand: Able to make a fist. No swelling or tenderness to palpation of these joints. No deformities noted. Wrists * Right Wrist: Full ROM. 70 degrees of wrist flexion, 80 degrees of wrist extension. No swelling or TTP * Left Wrist: Full ROM. 70 degrees of wrist flexion, 80 degrees of wrist extension. No swelling or TTP Elbows * Right Elbow: Full ROM. No swelling or TTP. No TTP of the medial and lateral e picondyles * Left Elbow: Full ROM. No swelling or TTP. No TTP of the medial and lateral epicondyles Shoulders * Right shoulder: Full ROM. No swelling noted. No TTP of the AC joint, subacromial bursa or posterior shoulder * Left shoulder: Full ROM. No swelling noted. No TTP of the AC joint, subacromial bursa or posterior shoulder Knees * Right knee: Full ROM. No swelling noted. No TTP of the knee joint lie or pes anserine bursa * Left knee: Full ROM. No swelling noted. No TTP of the knee joint lie or pes anserine bursa. * Crepitations felt bilaterally Ankles * Right ankle: Good ankle dorsiflexion and plantar flexion. No swelling. No TTP of the ankle joint * Left ankle: Good ankle dorsiflexion and plantar flexion. No swelling. No TTP of the ankle joint Feet * Right foot: Negative squeeze test * Left foot: Negative squeeze test Tender points? * No tenderness to palpation of the bilateral trapezius, supraspinatus, anterior costochondral junctions, bilateral suboccipital muscle insertions SKIN No rashes Results Reviewed Results Reviewed: Laboratory Tests 07/01/24 07/02/24 11:18 09:33 Sodium 138 Potassium 4.0 Chloride 104 Carbon Dioxide 28 BUN 10 Creatinine 0.82 AST 18 ALT 12 Alkaline Phosphatase 65 Total Protein 7.8 25-OH Vitamin D Total 54 MR L Spine 03/2024 FINDINGS: Submitted for interpretation on May 12, 2024. Last rib-bearing vertebra labeled T12. Prominent epidural fat, L5-S1. No bone marrow STIR signal abnormality. Multilevel disc desiccation more conspicuous at L5-S1. Focal hyperintense T2 signal in the posterior intervertebral disc L5-S1 likely annular fissure. Bone marrow inhomogeneity. Conus medullaris ends at superior endplate of L1 with normal signal. T12-L1: No compression upon neural elements. L1-2: No compression upon neural elements. L2-3: No compression upon neural elements. L3-4: Broad-based disc bulging. Facet joint and ligamentum flavum hypertrophy. Reduced AP diameter of the thecal sac and the neural foramina. L4-5: Broad-based disc bulging. Facet joint and ligamentum flavum hypertrophy. Reduced AP diameter of the thecal sac and bilateral neuroforamina narrowing likely encroaching the neural elements. L5-S1: Central and right subarticular broad-based disc herniation encroaching the right S1 nerve root. Facet joint hypertrophy resulting in bilateral neuroforamina narrowing. No prevertebral compartment hematoma, mass or fluid collection. IMPRESSION: Central and right subarticular broad-based disc herniation L5-S1 encroaching right S1 nerve root. Multilevel lumbar spondylosis, L3-4, 2 L4-5 encroaching neural elements thecal sac at L4-5 level DEXA 12/2023 FINDINGS: AP SPINE L1-L4: BMD 1.280 g/cm2, Z-score 1.1, T-score 0.8, normal. Artifact from LAP-BAND reservoir present overlying the L1 vertebra. LEFT FEMUR, NECK: BMD 0.650 g/cm2, Z-score -2.1, T-score -2.8, osteoporosis. LEFT FEMUR, TOTAL: BMD 0.665 g/cm2, Z-score -2.4, T-score -2.7, osteoporosis. Assessment & Plan Assessment & Plan (1) Polyarticular osteoarthritis: Code(s): M15.9 - Polyosteoarthritis, unspecified Plan: #Polyarticular OA Patient is a 59 y.o. female with polyarrticular OA here today for follow up. Overall stable on the current regimen Plan - Tramadol 50mg q8hr - RTC 6 months (2) Osteoporosis: Comment: DEXA 12/2023: AP Spine 0.8, Left femur neck -2.8, Left femur total -2.7 Alendronate started around 01/2024 Code(s): M81.0 - Age-related osteoporosis without current pathological fracture Category: Medical Qualifiers: Osteoporosis type: age-related Presence of current pathological fracture: without current pathological fracture Qualified Code(s): M81.0 - Age- related osteoporosis without current pathological fracture Plan: #Osteoporosis Patient with osteoporosis on alendronate No falls or fractures Vit D at goal Plan - Alendronate 70mg weekly PO - Vit D supplementation - DEXA 12/2025 (3) Encounter for ongoing osteoporosis therapy, bisphosphonates: Code(s): M81.0 - Age-related osteoporosis without current pathological fracture; Z79.83 - long term care administrator (current) use of bisphosphonates Plan: #Long-term Use of Bisphosphonates Risks and benefits of bisphosphonates in the management of osteoporosis Benefits include improved bone density, decreased fracture risk Risks include atypical femoral fractures, GI upset, esophageal strictures Contraindicated in patients with a creatinine clearance < 30 to 35 ml/min Keep vitamin-D at least 35 ng/mL Plan I spent 30 minutes reviewing the record and labs, taking a history, examining the patient, discussing the treatment plan, ordering diagnostic work up and documenting in the medical record Coding Level of Care Code Est Pt Level 4 (54114) Complex EM visit Add On G2211 Diagnoses Polyarticular osteoarthritis M15.9 Age-related osteoporosis without current pathological fracture M81.0 Osteoporosis type: age-related Presence of current pathological fracture: without current pathological fracture Encounter for ongoing osteoporosis therapy, bisphosphonates M81.0; Z79.83
[2025-01-19 15:52] VITALS: BP 118/62; PULSE 96; O2SAT 97; BMI 33.5
--- OUTSIDE RECORDS SUMMARY | 2025-01-19 16:03 | XMS_ITS | Clinical Summary ---
Author Organization [facility] Address [address] [place] [address] 7 [place] [address] Care Team Providers Care Mosquito Sprayer Name Role Phone Unavailable Primary Care Provider Unavailabl e Immunizations Immunization Administration Dates Next Due Influenza, seasonal, injectable, preservative fr ee 05/05/2024 Pfizer Covid-19 Vaccine 12+ 05/05/2024, 3 Social History Tobacco Use Types Packs/Day Years [...] (2 of 2 - PCV) 10/21/2019 10/20/2018 Influenza Vaccine (#1) 2025 4, 03/25/2021, 04/02/2020, Additional history exists DTaP/Tdap/Td Vaccines (2 - Td or Tdap) 05/04/2026 05/04/2016 RSV Patients and Patients Aged 60 years or older (1 - 1-dose 75+ series) 11/14/2038 COVID-19 Vaccine Completed 05/05/2024, , 02/13/2022, Additional history exists HIB Vaccines Aged Out [...] this topic Meningococcal Vaccine Aged Out No ismhael edil eligible based on patient's age to complete this topic RSV under 20 months Aged Out No longe r eligible based on patient's age to complete this topic Rotavirus Vaccines Aged Out No longer eligible based on patient's age to complete this topic [place] [address] [place] [address] , [address] [place] [address]
--- OUTSIDE RECORDS SUMMARY | 2025-01-19 16:03 | XMS_ITS | Patient Health Record ---
Author Organization [facility] Address [address] [place] [address] Care Team Providers Care Chemical Reclamation Equipment Operator Name Role Phone Chanell Garrett Primary Care [...] W/U Status Risk Notes Problem Esophageal reflux (930447417) Esophageal reflux (530.81) Active confirmed Problem Constipation (99751693) Constipation (564.00) Active confirmed Plan Of Treatment Pending Test Test Name Order Date XR GI SERIES 06/17/2013 Insurance Providers Payer Name Payer Address Payer Phone Subscriber Number Group Number Insured Name Patient Relationship to Insured Coverage Start Date Coverage End Date [facility] [address] [place] [phone] [id number] CHRISTINA MILNER Self - patient is the insured Medical (General) History Medical History History ICD Code Denies AL,DM,CVA,Lung disease,renal dise ase colon polyps esophageal reflux attention deficit disorder sciatica Surgical History Surgery Date(Month/Year) section tubal ligation lab band hiatal hernia
== END 2025-01-19 16:32 | disposition home or self-care (01) ==
LOC: HO.RHE 15:45
PROVIDERS: PCP Internal Medicine; Visit Provider Student in an Organized Health Care Education/Training Program
DX: M15.9 Polyosteoarthritis, unspecified (principal); M81.0 Age-related osteoporosis without current pathological fracture; Z79.83 Long term (current) use of bisphosphonates
CPT/HCPCS: 99214; G2211

== ENCOUNTER 2025-03-02 16:13 | Outpatient (AMB) | payer OTHER, SELFPAY ==
--- NOTE | 2025-03-02 16:21 | MHC.OFFVIS ---
Vital Signs 03/02/25 16:24 Height 5 ft 2 in Weight 179 lb BMI 32.7 BP 118/62 Blood Pressure Location Rt brachial Position Sitting Pulse 102 H Pulse Source Pulse Oximeter Pulse Oximetry (%) 97 Oxygen Delivery Method Room Air Intake Visit Reasons: 6m f/u Intake Note: ESTABLISHED PATIENT for mgmt of CIC + GERD. Labs done. CC: Pt reports having to take the occasional bisacodyl in addition to her linzess. No additional concerns or sx at this time. Core Laying Machine Operator Required: No Accompanied by: Self / Same As Patient Allergies buprenorphine (From Butrans) Allergy (Intermediate, Verified 03/02/25 16:21) Rash naproxen (NAPROXEN) Allergy (Intermediate, Verified 03/02/25 16:21) CHEST TIGHTNESS, vomiting HPI HPI 6m f/u: Details: LAST VISIT Tubular adenoma Chronic idiopathic constipation GERD (gastroesophageal reflux disease) Plan Continue pantoprazole daily and famotidine at bedtime. Avoid dietary triggers and late night snacking. Staying upright for minimum 3 hours after meals discussed with patient. Patient will continue taking Linzess daily. Increase fluid intake and activity to promote better bowel motility. Colonoscopy in 5 years, sooner if clinically necessary. Upper endoscopy showed duodenal changes will send patient to check transglutaminase. No issues with gluten per patient. No family history of celiac disease. Negative H pylori on biopsy. Follow-up in 6 months, sooner on as needed basis. Patient is agreeable to this plan and verbalizes understanding of instructions. She was given the opportunity to ask questions and all questions answered. ? Thank you for allowing me to participate in her care Orders Transglutaminase Ab IgG Today R10.9 Transglutaminase IgA Today R10.9 Refilled famotidine (Pepcid) 20 mg PO BEDTIME PRN 90 tabs 2RF acid reflux K21.9 TODAY'S VISIT Patient is here today for follow-up. Patient reports that she has been feeling better since she started Linzess 290 mcg. Occasional constipation she takes Dulcolax. Patient reports soft stools after taking Linzess, rarely patient will have a diarrhea. Denies melena, hematochezia, unintentional weight loss or ribbon like stools. Patient was placed on Ozempic 1 month ago and already lost over 20 lb. Acid reflux not well control during the day or at night time. Worse at nighttime. Patient is trying not to eat after 19:00. Patient reports that she has to sleep on 2 pillows and has times at bedside to take during the night when she has cough and acid reflux. Occasional postprandial epigastric pain during the day time. Denies dyspepsia, dysphagia or odynophagia. Denies any other GI concerning symptoms. [facility] Medical History Osteoarthritis Sacroiliitis Right sided sciatica Left sciatic nerve pain History of cocaine use Tubular adenoma Asthma Diabetes 1.5, managed as type 2 Chronic idiopathic constipation GERD (gastroesophageal reflux disease) Surgical History Hx of section History of repair of hiatal hernia Hx of laparoscopic gastric banding Hx of esophagogastroduodenoscopy Hx of colonoscopy Family History Father Prostate CA Cancer of back Mother Diabetes 1.5, managed as type 2 CVD (cardiovascular disease) Social History Household Members: Other Household Members Other:: grandson Housing: House Alcohol intake: former Patient Tobacco Use Status: Current everyday Tobacco user Tobacco use type: Cigarette Cigarettes Per Day: 4 Years Smoked: 16 e-Cigarette/Vaping Use: Never Used Second Hand Smoke Exposure: No service: No Current occupational status: employed Current occupational exposures/hazards: No Sexual orientation: Straight/Heterosexual Gender identity: Female Cognitive needs: No Hearing needs: No Vision needs: Yes (reading glasses) Review of Systems Const Denies weight gain and Denies weight loss ENT Reports no additional complaints, Denies dysphagia and Denies odynophagia Card Reports no additional complaints Resp Reports no additional complaints GI Denies abdominal pain, Denies belching, Denies melena, Denies bloating, Denies change in bowel habits, Reports constipation (OCCASIONAL), Denies dysphagia, Denies excessive flatus, Denies dyspepsia, Reports heartburn (At night occasional ), Denies diarrhea, Denies loose stools, Denies nausea, Denies odynophagia and Denies vomiting Musc Reports no additional complaints Neuro Reports no additional complaints Psych Reports no additional complaints Endo Reports no additional complaints Physical Exam Const General: healthy appearing, no acute distress and well developed Nutritional Appearance: obese Orientation/consciousness: patient oriented x3 Resp Effort & Inspection: normal respiratory effort, able to speak in complete sentences, no tracheal deviation and symmetric chest movement Auscultation: clear to auscultation bilaterally Cardio Rate: regular rate GI Inspection: Yes normal to inspection, No distended and Yes obesity Palpation (GI): Soft to palpation, not firm, nontender and No hepatosplenomegaly present Auscultation: normal bowel sounds General: Yes no CVA tenderness Back/Spine/Pelvis Back: no CVA tenderness Skin General skin exam: elasticity normal, turgor normal and dry skin Neuro General: patient oriented x3 Psych Appearance: grossly normal Mental Status: mental status grossly normal Speech and movement: Normal speech and movement present Results Reviewed Results Reviewed: Laboratory Tests 03/30/24 17:07 Tiss Transglutamin IgG <1.0 Tiss Transglutamin IgA <1.0 Assessment & Plan Assessment & Plan (1) Chronic idiopathic constipation: Code(s): K59.04 - Chronic idiopathic constipation Category: Medical (2) GERD (gastroesophageal reflux disease): Code(s): K21.9 - Gastro-esophageal reflux disease without esophagitis Category: Medical Qualifiers: Esophagitis presence: esophagitis presence not specified Qualified Code(s): K21.9 - Gastro-esophageal reflux disease without esophagitis (3) Postprandial epigastric pain: Code(s): R10.13 - Epigastric pain (4) Postprandial abdominal bloating: Code(s): R14.0 - Abdominal distension (gaseous) Plan Patient will continue Linzess and may use Dulcolax as needed. Increase fluid intake and activity to promote better bowel motility. Patient can take fiber with pre and probiotic to help bulk her stools. Patient will stop pantoprazole and start taking Nexium in the morning. She can continue taking famotidine at bedtime, however if she will continue have epigastric pain, cough, reflux during the night she will call us and we can put her on sucralfate. Avoid dietary triggers only at snacking. Staying upright for minimum 3 hours after meals discussed with patient. Patient is agreeable to current plan of care and verbalizes understanding of instructions. She was given the opportunity to ask questions and all questions answered. Thank you for allowing me to participate in her care Medications: New esomeprazole magnesium (Nexium) 40 mg PO DAILY 30 caps 3RF K21.9 - Gastro-esophageal reflux disease without esophagitis Discontinued pantoprazole Discontinued Reason: Doctor's Order 40 mg PO DAILY 90 tabs 2RF K21.9 - Gastro-esophageal reflux disease without esophagitis Coding Level of Care Code Est Pt Level 4 (02320) Complex EM visit Add On G2211 Diagnoses Chronic idiopathic constipation K59.04 Gastroesophageal reflux disease, unspecified whether esophagitis present K21.9 Esophagitis presence: esophagitis presence not specified Postprandial epigastric pain R10.13 Postprandial abdominal bloating R14.0 Time Spent (min) 35 Comment 25 minutes spent with patient and additional 10 minutes spent reviewing her records
[2025-03-02 16:24] VITALS: BP 118/62; PULSE 102; O2SAT 97; BMI 32.7
--- OUTSIDE RECORDS SUMMARY | 2025-03-02 17:37 | XMS_ITS | Patient Health Record ---
Author Organization [facility] Address [address] [place] [address] Care Team Providers Care Recruitment And Outreach Assistant Name Role Phone Chanell Garrett Primary Care [...] W/U Status Risk Notes Problem Esophageal reflux (289314927) Esophageal reflux (530.81) Active confirmed Problem Constipation (564.00) Active confirmed Plan Of Treatment Pending Test Test Name Order Date XR GI SERIES 06/17/2013 Insurance Providers Payer Name Payer Address Payer Phone Subscriber Number Group Number Insured Name Patient Relationship to Insured Coverage Start Date Coverage End Date [facility] [address] [place] [phone] [id number] CHRISTINA MILNER Self - patient is the insured Medical (General) History Medical History History ICD Code Denies [place],DM,CVA,Lung disease,renal dise ase colon polyps esophageal reflux attention deficit disorder sciatica Surgical History Surgery Date(Month/Year) section tubal ligation lab band hiatal hernia
--- OUTSIDE RECORDS SUMMARY | 2025-03-02 17:37 | XMS_ITS | Clinical Summary ---
Author Organization [employer] Address [address] [place] [address] [address] [place] [address] Care Team Providers Care Industrial Electrician Journeyman Name Role Phone Unavailable Primary Care Provider [...] patient's age to complete this topic Insurance [place] [address] , [address] [place] [address]
== END 2025-03-02 16:36 | disposition home or self-care (01) ==
LOC: HO.HGI 16:14
PROVIDERS: PCP Internal Medicine; Visit Provider Nurse Practitioner Family
DX: K59.04 Chronic idiopathic constipation (principal); K21.9 Gastro-esophageal reflux disease without esophagitis; R10.13 Epigastric pain; R14.0 Abdominal distension (gaseous)
CPT/HCPCS: 99214; G2211

== ENCOUNTER 2025-04-29 16:02 | Outpatient (AMB) | payer OTHER, SELFPAY ==
--- NOTE | 2025-04-29 16:13 | MHC.PC.OV ---
Vital Signs 04/29/25 16:14 Height 5 ft 2 in Weight 179 lb 6 oz BMI 32.8 BP 102/62 Position Sitting Respiration 18 Pulse 101 H Pulse Source Pulse Oximeter Temp 96.9 F Temp Source Temporal Artery Scan Pulse Oximetry (%) 96 Oxygen Delivery Method Room Air Intake Visit Reasons: dm Helper/Driver Required: No Accompanied by: Self / Same As Patient Allergies buprenorphine (From [place]) Allergy (Intermediate, Verified 04/29/25 16:29) Rash naproxen (NAPROXEN) Allergy (Intermediate, Verified 04/29/25 16:29) CHEST TIGHTNESS, vomiting Medication List - Last Reconciled 04/29/25 by Chanell Ford MD acetaminophen ER 650 mg PO Q8H PRN alendronate 70 mg PO QWEEK atorvastatin 10 mg PO BEDTIME 90 days baclofen 20 mg PO BID PRN NS citalopram 40 mg PO DAILY 90 days esomeprazole magnesium 40 mg PO DAILY famotidine 20 mg PO BEDTIME PRN gabapentin 300 mg PO BEDTIME hydroquinone 4% 1 appl topical DAILY 30 days lactobacillus combination no.4 (Probiotic) 3,000 mmu cells PO DAILY lidocaine 4% (Aspercreme (lidocaine)) 1 patch topical DAILY PRN linaclotide (Linzess) 290 mcg PO QAM lisinopril 10 mg PO DAILY 90 days menthol 2.5% (Icy Hot Pain Relieving) 1 appl topical BID-QID PRN metformin 1,000 mg PO BID 90 days methylcellulose (laxative) (Citrucel) 500 mg PO DAILY mirtazapine 15 mg PO BEDTIME 90 days montelukast 10 mg PO DAILY semaglutide (Ozempic) 0.5 mg (0.736 mL) subcut QWEEK 4 weeks tramadol 50 mg PO Q8H 90 days Tobacco use date assessed: 04/29/25 Dental Screening Dental Screen Date: 04/29/25 Did you have a dental visit in the last 12 months?: No Did you have a dental problem in the last 6 months where you did not have access to dental care?: No Was dental information given to patient?: No HPI HPI Comments History of Present Illness Details The patient is a 59-year-old female presenting for a routine check-up and management of chronic conditions including diabetes, hypertension, and hyperlipidemia. The patient has a history of diabetes mellitus, currently managed with metformin and Ozempic, with a recent consideration to increase the Ozempic dosage from 0.5 mg to 1 mg due to stable blood pressure and weight management. She reports smoking approximately four cigarettes per day and expresses readiness to quit smoking upon assisted. The patient is also managing hypertension with lisinopril 10 mg and hyperlipidemia with atorvastatin 10 mg. She has been prescribed Fosamax for osteoporosis, which she takes once a week. Her medication regimen includes baclofen for muscle relaxation, citalopram for depression, esomeprazole, and mirtazapine for depression and insomnia. She also uses hydroquinone for skin treatment, with instructions to alternate its use monthly and apply sunscreen to prevent sun exposure. The patient has undergone mammography and is due for a bone density screening in 2025. She has not had recent laboratory tests, which are planned to be conducted soon. [facility] Medical History Osteoarthritis Sacroiliitis Right sided sciatica Left sciatic nerve pain History of cocaine use Tubular adenoma Asthma Diabetes 1.5, managed as type 2 Chronic idiopathic constipation GERD (gastroesophageal reflux disease) Surgical History Hx of section History of repair of hiatal hernia Hx of laparoscopic gastric banding Hx of esophagogastroduodenoscopy Hx of colonoscopy Family History Father Prostate CA Cancer of back Mother Diabetes 1.5, managed as type 2 CVD (cardiovascular disease) Social History Household Members: Other Household Members Other:: grandson Housing: House Alcohol intake: former Patient Tobacco Use Status: Current everyday Tobacco user Tobacco use type: Cigarette Cigarettes Per Day: 4 Years Smoked: 16 e-Cigarette/Vaping Use: Never Used Second Hand Smoke Exposure: No service: No Current occupational status: employed Current occupational exposures/hazards: No Sexual orientation: Straight/Heterosexual Gender identity: Female Cognitive needs: No Hearing needs: No Vision needs: Yes (reading glasses) Questionnaire Thrive Questionnaire Date Thrive assessed: 12/21/24 I am a: Patient What is your living situation today?: I have a steady place to live Within the past 12 months, did the food you bought not last and you didn't have the money to get more?: Never true Within the past 12 months, did you worry whether your food would run out before you got money to buy more?: Never true Do you have trouble paying for medicines?: Yes Do you have trouble getting transportation to medical appointments?: No Do you have trouble paying your heating and electricity bill?: No Do you have trouble taking care of your child, family member or friend?: No Do you have trouble with day-to-day activities such as bathing, preparing meals, shopping, managing finances, etc.?: No Are you currently unemployed and looking for a job?: No Are you interested in more education?: No Please select the resources that you would like help with: None Currently or been in a relationship where the following occur: No concerns reported THRIVE Score: 0 AUDIT C Alcohol Use Questionnaire (AUDIT-C) 1. How often do you have a drink containing alcohol?: Monthly or less 2. How many drinks containing alcohol do you have on a typical day when you are drinking?: 1 or 2 3. How often do you have six or more drinks on one occasion?: Never Total Score: 1 Score Reviewed/Action Taken: No ERIKA-7 AMB Questionnaire ERIKA-7 Date ERIKA - 7 assessed: 12/28/24 Source: Developed by Drs. Calvin Maria, Meghan Eddy, Josh Blandon and colleagues, with an educational andi from [employer]. Review of Systems Const All systems reviewed & are unremarkable except as noted in HPI and below Card Denies chest pain at rest, Denies chest pain with activity, Denies edema, Denies irregular heart rhythm, Denies claudication, Denies dyspnea, Denies dyspnea on exertion, Denies orthopnea, Denies paroxysmal nocturnal dyspnea and Denies slow heart rate Resp Denies cough, Denies dyspnea and Denies dyspnea on exertion GI Denies abdominal pain, Denies change in bowel habits, Denies excessive flatus, Denies nausea and Denies vomiting Physical exam (Primary Care) Vital Signs: Last Vital Signs Temp 96.9 F 04/29/25 16:14 Pulse 101 H 04/29/25 16:14 Resp 18 04/29/25 16:14 BP 102/62 04/29/25 16:14 Pulse Ox 96 04/29/25 16:14 Oxygen Delivery Method Room Air 04/29/25 16:14 BMI result Body Mass Index 32.8 BMI Assessment/Plan discussion: High BMI High, discussed plan: lifestyle, weight reduction, dietary and physical activity Tobacco/Smoking Status: Tobacco use Status Tobacco use date assessed 04/29/25 04/29/25 16:25 Patient Tobacco Use Status Current everyday Tobacco 04/29/25 16:25 Tobacco use type Cigarette 04/29/25 16:25 e-Cigarette/Vaping Use Never Used 04/29/25 16:25 Thrive Assessment: Date of Thrive Assessment Date Thrive assessed 12/21/24 04/29/25 16:25 Currently or been in a relationship where the following occur: No concerns reported Resp Effort & Inspection: normal respiratory effort Auscultation: clear to auscultation bilaterally Cardio Jugular venous distension: no JVD Rate: regular rate Rhythm: regular rhythm Heart sounds: S1 normal heart sound present and S2 normal heart sound present Extrem General: Yes full ROM Office Procedures Flu Questionnaire Does the patient have a severe egg allergy?: No Does the patient have severe life threatening allergies?: No Does the patient have a fever or illness today?: No Has the patient ever had Guillain-Mcdowell Syndrome?: No Has the patient ever had any past reaction to a flu shot?: No Results AMB Hemoglobin A1c AMB Hemoglobin A1c 5.5 % Last Edit by JB Obrien on 04/29/25 16:46 Immunizations Fluarix [id number] (PF) 45 mcg (15 mcg x 3)/0.5 mL IM syringe Performing Provider: Chanell Ford MD [facility] Administered by: JB Obrien on 04/29/25 16:43 Dose Route Admin Location Dispensed Lot Number Expiration Date [facility] Women Designer 0.5 mL IM Right Deltoid 0.5 mL [id number] 01/11/26 [id number] [employer] VIS Given Date VIS Provided VIS Publication Date 04/29/25 Single Vaccine 24 Eligibility Eligibility Date Funding Source Not [facility] Eligible 04/29/25 Private Results Reviewed Results Reviewed: Laboratory Last Values Hgb A1c (Clinic) 5.5 % (4.0-6.0) 04/29/25 16:28 Coding Level of Care Code Est Pt Level 4 (76253) Complex EM visit Add On G2211 Diagnoses Type 2 diabetes mellitus with hyperglycemia, without long-term current use of insulin E11.65 Diabetes mellitus complication status: with hyperglycemia Diabetes mellitus hydroelectric plant electrician insulin use: without fpc use Diabetes mellitus type: type 2 Age-related osteoporosis without current pathological fracture M81.0 Osteoporosis type: age-related Presence of current pathological fracture: without current pathological fracture Hyperlipidemia LDL goal <70 E78.5 Essential hypertension I10 Hypertension type: essential hypertension Lumbosacral radiculopathy due to degenerative joint disease of spine M47.27 Mild major depression F32.0 Time Spent (min) 22 Assessment & Plan Assessment & Plan (1) Diabetes mellitus: Code(s): E11.9 - Type 2 diabetes mellitus without complications Category: Medical Qualifiers: Diabetes mellitus complication status: with hyperglycemia Diabetes mellitus hydroelectric plant electrician insulin use: without hydroelectric plant electrician use Diabetes mellitus type: type 2 Qualified Code(s): E11.65 - Type 2 diabetes mellitus with hyperglycemia (2) Osteoporosis: Comment: DEXA 12/2023: AP Spine 0.8, Left femur neck -2.8, Left femur total -2.7 Alendronate started around 01/2024 Code(s): M81.0 - Age-related osteoporosis without current pathological fracture Category: Medical Qualifiers: Osteoporosis type: age-related Presence of current pathological fracture: without current pathological fracture Qualified Code(s): M81.0 - Age-related osteoporosis without current pathological fracture (3) Hyperlipidemia LDL goal <70: Code(s): E78.5 - Hyperlipidemia, unspecified Category: Medical (4) HTN (hypertension): Code(s): I10 - Essential (primary) hypertension Category: Medical Qualifiers: Hypertension type: essential hypertension Qualified Code(s): I10 - Essential (primary) hypertension (5) Lumbosacral radiculopathy due to degenerative joint disease of spine: Code(s): M47.27 - Other spondylosis with radiculopathy, lumbosacral region Category: Medical (6) Mild major depression: Code(s): F32.0 - Major depressive disorder, single episode, mild Category: Medical Plan Plan 1. Type 2 diabetes mellitus without complications E11.9 HCC 19 The patient's diabetes is currently managed with metformin and Ozempic, with consideration to increase the Ozempic dosage to 1 mg due to stable blood pressure and weight management. 2. Essential (primary) hypertension I10 Hypertension is managed with lisinopril 10 mg, and the patient's blood pressure is reported as stable. 3. Hyperlipidemia, unspecified E78.5 Hyperlipidemia is managed with atorvastatin 10 mg. 4. Depression, unspecified F32.A Depression is managed with citalopram and mirtazapine. 5. Age-related osteoporosis without current pathological fracture M81.0 Osteoporosis is managed with Fosamax, taken once a week. Orders: Orders Comprehensive [place]. Panel Fast Today E11.65 - Type 2 diabetes mellitus with hyperglycemia AMB Hemoglobin A1c Today E11.9 - Type 2 diabetes mellitus without complications Influenza [id number] Immunization Today Z23 - Encounter for immunization Lipid Panel Today E78.5 - Hyperlipidemia, unspecified Microalbumin, Random (w Creat) Today R80.9 - Proteinuria, unspecified Vitamin B12 and Folate Today E53.8 - Deficiency of other specified B group vitamins Vitamin D 25-OH Total Today E55.9 - Vitamin D deficiency, unspecified
[2025-04-29 16:14] VITALS: BP 102/62; PULSE 101; RESP 18; TEMP 36.1; O2SAT 96; BMI 32.8
--- OUTSIDE RECORDS SUMMARY | 2025-04-29 19:36 | XMS_ITS | Patient Health Record ---
Author Organization [facility] Address [address] [place] [address] Care Team Providers Care State Assessed Properties Director Name Role Phone Chanell Garrett Primary Care [...] W/U Status Risk Notes Problem Esophageal reflux ([id number]) Esophageal reflux (530.81) Active confirmed Problem Constipation (95705748) Constipation (564.00) Active confirmed Plan Of Treatment Pending Test Test Name Order Date XR GI SERIES 06/17/2013 Insurance Providers Payer Name Payer Address Payer Phone Subscriber Number Group Number Insured Name Patient Relationship to Insured Coverage Start Date Coverage End Date [facility] [address] [place] [phone] [id number] CHRISTINA MILNER Self - patient is the insured Medical (General) History Medical History History ICD Code Denies [place],DM,CVA,Lung disease,renal dise ase colon polyps esophageal reflux attention deficit disorder sciatica Surgical History Surgery Date(Month/Year) section tubal ligation lab band hiatal hernia
--- OUTSIDE RECORDS SUMMARY | 2025-04-29 19:36 | XMS_ITS | Clinical Summary ---
Author Organization [facility] Address [address] [place] [address] [address] [place] [address] Care Team Providers Care Oven Operator Name Role Phone Unavailable Primary Care Provider [...] patient's age to complete this topic Insurance [place] [address] , [address] [place] [address]
== END 2025-04-29 16:45 | disposition home or self-care (01) ==
LOC: HO.HMCH 16:02
PROVIDERS: PCP Internal Medicine; Visit Provider Internal Medicine
DX: E11.65 Type 2 diabetes mellitus with hyperglycemia (principal); M81.0 Age-related osteoporosis without current pathological fracture; E78.5 Hyperlipidemia, unspecified; I10 Essential (primary) hypertension; M47.27 Other spondylosis with radiculopathy, lumbosacral region; F32.0 Major depressive disorder, single episode, mild; Z23 Encounter for immunization; E11.9 Type 2 diabetes mellitus without complications

== ENCOUNTER → 2025-04-29 16:02 | Outpatient (BNVA) | payer OTHER, SELFPAY | PROVIDERS: PCP Internal Medicine; Visit Provider Internal Medicine | DX: E11.65 Type 2 diabetes mellitus with hyperglycemia (principal); M81.0 Age-related osteoporosis without current pathological fracture; I10 Essential (primary) hypertension; E78.5 Hyperlipidemia, unspecified; M47.27 Other spondylosis with radiculopathy, lumbosacral region; F32.0 Major depressive disorder, single episode, mild; R80.9 Proteinuria, unspecified; E53.8 Deficiency of other specified B group vitamins; Z23 Encounter for immunization | CPT/HCPCS: 83036; 90471; 90656 ==

== ENCOUNTER 2025-05-03 07:50 | Outpatient (REF) | payer OTHER, SELFPAY ==
--- OUTSIDE RECORDS SUMMARY | 2025-05-03 07:53 | XMS_ITS | Clinical Summary ---
Author Organization [facility] [employer] Address [address] [place] [address] [address] [place] [address] Care Team Providers Care Compliance Director Name Role Phone Unavailable Primary Care Provider [...] to complete this topic [place] [address] , [address] [place] [address]
--- OUTSIDE RECORDS SUMMARY | 2025-05-03 07:53 | XMS_ITS | Patient Health Record ---
Author Organization [facility] Address [address] [place] [address] Care Team Providers Care Parking Ramp Attendant Name Role Phone Chanell Garrett Primary Care [...] W/U Status Risk Notes Problem Esophageal reflux ([id number]) Esophageal reflux (530.81) Active confirmed Problem Constipation (41325939) Constipation (564.00) Active confirmed Plan Of Treatment Pending Test Test Name Order Date XR GI SERIES 06/17/2013 Insurance Providers Payer Name Payer Address Payer Phone Subscriber Number Group Number Insured Name Patient Relationship to Insured Coverage Start Date Coverage End Date [facility] [address] [place] [phone] [id number] CHRISTINA MILNER Self - patient is the insured Medical (General) History Medical History History ICD Code Denies [place],DM,CVA,Lung disease,renal dise ase colon polyps esophageal reflux attention deficit disorder sciatica Surgical History Surgery Date(Month/Year) section tubal ligation lab band hiatal hernia
[2025-05-03 08:06] LABS: MANUAL DIFF FLAG NO
[2025-05-03 08:19] LABS: Hematocrit 35.4 % (37.0-47.0); Hemoglobin 11.3 g/dl (12.0-16.0); Imm Gran Abs Auto 0.01 X10*3/uL (0.00-0.03); Imm Gran Pct Auto 0.2 % (0.0-0.4); Lymphocytes Absolute Auto 3.2 X10*3/uL (1.2-4.9); Mean Corpuscular HGB Conc 31.9 g/dl (31.0-35.0); Mean Corpuscular Hemoglobin 29.7 pg (27.0-33.0); Mean Corpuscular Volume 93.2 fL (80.0-98.0); NRBC Abs Auto 0.000 X10*3/uL (0.0-0.012); NRBC Pct Auto 0.0 /100WBC (0.0-0.2); Platelet Count 298 X10*3/uL (160-400); Red Blood Count 3.80 X10*6/uL (4.20-5.50); White Blood Count 6.4 X10*3/uL (4.8-10.8)
[2025-05-03 08:55] LABS: Alanine Aminotransferase 15 U/L (0-31); Albumin Level 4.2 g/dL (3.5-5.0); Alkaline Phosphatase 69 U/L (39-117); Anion Gap 12 (12-20); Aspartate Amino Transferase 23 U/L (5-31); Blood Urea Nitrogen 12 mg/dL (9-16); Calcium 9.2 mg/dL (8.4-10.2); Carbon Dioxide 30 mmol/L (22-29); Chloride 103 mmol/L (96-108); Cholesterol 153 mg/dL (<200); Estimated Glomerular Filt Rate > 60; HDL Cholesterol 55 mg/dL (>40); Iron 55 mcg/dL (30-160); Percent Iron Saturation 18 % (15-50); Potassium 4.5 mmol/L (3.3-5.1); Sodium 140 mmol/L (135-145); Total Iron Binding Capacity 299 mcg/dL (228-428); Total Protein 7.3 g/dL (6.5-8.0); Triglycerides 82 mg/dL (<150); Unsaturated Iron Binding 244 ug/dL
[2025-05-03 09:18] LABS: Folate 5.8 ng/mL (> or = 4.0); Vitamin B12 297 pg/mL (200-900)
[2025-05-03 10:54] LABS: Microalbum/Creatinine Ratio Ur 5.4 ug/mg cr (<30)
== END 2025-05-03 07:51 | disposition home or self-care (01) ==
LOC: HO.LAB 07:50
PROVIDERS: PCP Internal Medicine; Visit Provider Internal Medicine
DX: E11.65 Type 2 diabetes mellitus with hyperglycemia (principal); E53.8 Deficiency of other specified B group vitamins; D64.9 Anemia, unspecified; E55.9 Vitamin D deficiency, unspecified; E78.5 Hyperlipidemia, unspecified; R80.9 Proteinuria, unspecified
CPT/HCPCS: 36415; 80053; 80061; 82043; 82306; 82570; 82607; 82746; 83540; 85025